=== PATIENT | male | born 1965 | race Caucasian/White ===

== ENCOUNTER 2016-08-04 10:19 | Emergency (ER) | payer OTHER, MEDICARE ==
--- NOTE | ~2016-08-04 | US85 ---
[facility] A Service of [facility] RADIOLOGY TEXT RESULTS PATIENT: LUDWIG RANDALL JR LOCATION: [place] : 67 UNIT #: [id number] AGE: [address]: Uyen Woods MD SEX: M ORDER DR: [id number] [facility] [address] [place], [place] [address] [id number] E MR#: [id number] Acc #: [id number] NAME: LUDWIG RANDALL JR : 1965 SEX: M STUDY DATE/TIME: 08/04/2016 13:28 UNIT: [place] ROOM: STUDY DESCRIPTION: [facility] [employer] Stdy Attending Physician: Uyen Woods M.D. Ordering Physician: Uyen Woods M.D. Primary Care Physician: Kevin Prince Aprn MEDICAL IMAGING REPORT This report is preliminary unless electronic signature is present EXAM Left leg vein Doppler. DATE OF EXAM 08/04/2016 INDICATION Chest pain that started this morning. On physical exam, the patient had swelling in the leg of unknown duration. TECHNIQUE Venous ultrasound examination of the left lower extremity was performed using grayscale, spectral Doppler and color flow Doppler imaging. FINDINGS The examination is negative. There is no evidence of left lower extremity deep venous thrombus from the groin to the lower calf. Visualized greater saphenous vein is also patent. IMPRESSION Negative examination. No evidence of left lower extremity DVT. Dictated by... Sanjiv Samuel Jr., M.D. THIS IS AN ELECTRONICALLY VERIFIED REPORT Sanjiv Samuel Jr., M.D. at 08/04/2016 4:54 PM CHRISS/néstor [facility] A Service of [facility] RADIOLOGY TEXT RESULTS PATIENT: LUDWIG RANDALL JR Radha LOCATION: [place] : 67 UNIT #: [id number] AGE: [address]: Uyen Woods MD SEX: M ORDER DR: TD: 08/04/2016 15:30 JOB #: [id number] MEDICAL IMAGING REPORT COPY
--- NOTE | ~2016-08-04 | EKG ---
PATIENT: LUDWIG RANDALL UNIT #: [id number] Ventricular Rate: 68 BPM Atrial Rate: 68 BPM P-R Interval: 166 ms QRS Duration: 148 ms Q-T Interval: 410 ms QTC Calculation(Bezet): 435 ms P [place]: 61 degrees Calculated R [place]: 132 degrees Calculated T [place]: 17 degrees Diagnosis Line: Normal sinus rhythm Diagnosis Line: Right bundle branch block with repolarization Diagnosis Line: abnormality Diagnosis Line: Left posterior fascicular block Diagnosis Line: Bifascicular block Diagnosis Line: Abnormal ECG Diagnosis Line: When compared with ECG of 12-JUN-2016 07:54, Diagnosis Line: No significant change was found Diagnosis Line: Confirmed by AYAN SULTANA MD ([id number]) on 08/05/2016 Diagnosis Line: 6:17:17 PM INTERPRETING MD: KAYY CHAKRABORTY
--- NOTE | ~2016-08-04 | CT16 ---
[facility] A Service of [facility] RADIOLOGY TEXT RESULTS PATIENT: LUDWIG RANDALL JR LOCATION: [facility] : 67 UNIT #: [id number] AGE: [address]: Uyen Woods MD SEX: M ORDER DR: [id number] [facility] [address] [place], [place] [address] [id number] E MR#: [id number] Acc #: [id number] NAME: LUDWIG RANDALL : 1965 SEX: M STUDY DATE/TIME: 08/04/2016 13:01 UNIT: [facility] ROOM: STUDY DESCRIPTION: CT Angio Chest for PE Attending Physician: Uyen Woods M.D. Ordering Physician: Uyen oWods M.D. Primary Care Physician: Kevin Prince Aprn MEDICAL IMAGING REPORT This report is preliminary unless electronic signature is present EXAM Chest CTA, 08/04 INDICATION Shortness of air and chest pain since 6 o'clock this morning. Pain rate 6/10. Patient diagnosed with pneumonia 1 month ago. TECHNIQUE Axial images were obtained through the chest following IV contrast administration. 3-D reformats were obtained. This CT exam was performed with one or more of the following radiation dose reduction techniques: automatic exposure control, adjustment of mA and/or kV according to patient size, and iterative reconstruction. COMPARISON 06/12/2016 FINDINGS There is no pulmonary embolism or aortic dissection. Findings are highly suspicious for a right hilar mass measuring about 3.9 x 3.8 cm. This is causing partial right middle lobe atelectasis. Consider bronchoscopy for further evaluation. This is worrisome for malignancy. No other adenopathy is seen in the chest or upper abdomen. There is some mild atelectasis in the right lower lobe today. The lungs are otherwise clear. Upper abdomen shows changes of gastric band placement and cholecystectomy. IMPRESSION 1. No pulmonary embolism or aortic dissection. 2. Findings are highly suspicious for a right hilar mass causing partial atelectasis of the right middle lobe. Consider bronchoscopy for further evaluation. This is suspicious for malignancy. [facility] A Service of [facility] RADIOLOGY TEXT RESULTS PATIENT: LUDWIG RANDALL JR LOCATION: [facility] : 67 UNIT #: [id number] AGE: [address]: Uyen Woods MD SEX: M ORDER DR: 3. There is some mild atelectasis in the right lower lobe today. Dictated by... Sanjiv Samuel Jr., M.D. THIS IS AN ELECTRONICALLY VERIFIED REPORT Sanjiv Samuel Jr., M.D. at 08/05/2016 8:09 AM CHRISS/juan TD: 08/04/2016 15:20 JOB #: [id number] MEDICAL IMAGING REPORT COPY
--- NOTE | ~2016-08-04 | CR72 ---
[facility] A Service of [facility] RADIOLOGY TEXT RESULTS PATIENT: LUDWIG RANDALL JR LOCATION: [facility] : 67 UNIT #: [id number] AGE: [address]: Uyen Woods MD SEX: M ORDER DR: [id number] [facility] [address] [place], [place] [address] [id number] E MR#: [id number] Acc #: [id number] NAME: LUDWIG RANDALL JR : 1965 SEX: M STUDY DATE/TIME: 08/04/2016 10:26 UNIT: [facility] ROOM: STUDY DESCRIPTION: CR Chest Single View Portable Attending Physician: Uyen Woods M.D. Ordering Physician: Uyen Woods M.D. Primary Care Physician: Kevin Prince Aprn MEDICAL IMAGING REPORT This report is preliminary unless electronic signature is present EXAM Portable chest 08/04 INDICATIONS Midsternal chest pain for the last 4 weeks. Patient had pneumonia 1 month ago with a collapsed right lung. FINDINGS AP portable chest is compared with 06/12/2016. Cardiomegaly is stable. Lungs are clear. No pneumothorax. IMPRESSION Stable cardiomegaly. No active disease. Dictated by... Sanjiv Samuel Jr., M.D. THIS IS AN ELECTRONICALLY VERIFIED REPORT Sanjiv Samuel Jr., M.D. at 08/04/2016 2:58 PM CHRISS/flakito TD: 08/04/2016 13:07 JOB #: [id number] MEDICAL IMAGING REPORT COPY
[2016-08-04 10:00] LABS: POC - CKMB 3.4 ng/mL (0.0-7.9); POC - TROPONIN <0.05 ng/mL (<=0.05)
[~2016-08-04 10:19] MED LIST: ALBUTEROL MININEB NEB; ALBUTEROL17 GM INH; AMBIEN PO; AUGMENTIN PO; AVONEX; BACTRIM DS TABL1 TAB; BENZONATATE PO; CELEBREX50 MG; CYMBALTA; DOXYCYCLINE PO; GILENYA0.5 MG PO; KLONOPIN; LEVAQUIN; LORTAB 5/500 TA1 TA1 PO; LORTAB 7.5-5001 TAB; LORTAB 7.5-5001 TAB PO; LYRICA75 MG PO; MEDROL PO; MS MED; NUVIGIL150 MG; PHENERGAN25 MG; PREDNISONE PO; SYMBICORT INH; TOPAMAX; VICODIN 5/1 TAB 5/50 PO; VICODIN 5/500 T1 TAB; WELLBUTRIN; ZITHROMAX PO; ZOMIG ZMT5 MG/TAB PO; [UNRECOGNIZED DRUG - OTHER]; [UNRECOGNIZED DRUG - OTHER] INJ
[2016-08-04 10:33] LABS: BASOPHIL% 0.6 % (0-2.5); EOSINOPHIL# 0.3 X10e3 (0-0.7); EOSINOPHIL% 4.3 % (0.0-7.0); HEMATOCRIT 44.6 % (38.0-50.0); HEMOGLOBIN 15.2 gm/dL (13.0-16.0); LYMPHOCYTE# 0.3 X10e3 (1.0-3.5); LYMPHOCYTE% 4.5 % (17.0-45.0); MEAN CELL VOLUME 88.9 FL (83-96); MEAN CORPUSCULAR HEMOGLOBIN 30.3 PG (28-34); MEAN PLATELET VOLUME 9.2 FL (6.5-11.5); MONOCYTE# 0.7 X10e3 (0-1.0); MONOCYTE% 11.8 % (3.0-12.0); NEUTROPHIL# 4.6 X10e3 (1.5-7.1); NEUTROPHIL% 78.8 % (40-75); PLATELET COUNT 231 X10e3 (140-420); RED BLOOD COUNT 5.01 X10e (3.90-5.60); RED CELL DISTRIBUTION WIDTH 14.2 % (11.0-15.5); WHITE BLOOD COUNT 5.9 X10e3 (4.0-10.5)
[2016-08-04 10:37] LABS: DIFF IND NO
[2016-08-04 10:48] LABS: PARTIAL THROMBOPLASTIN TIME 27.9 SECONDS (23.5-31.3)
[2016-08-04 10:55] LABS: INFLUENZA A NEG (NEG)
[2016-08-04 10:56] LABS: INFLUENZA B NEG (NEG)
[2016-08-04 11:06] LABS: ALKALINE PHOSPHATASE 85 U/L (32-92); ALT (SGPT) 20 U/L (10-40); AST (SGOT) 19 U/L (10-42); BILIRUBIN, DIRECT 0.1 mg/dL (0.0-0.2); BILIRUBIN,INDIRECT 0.7 mg/dL (0.0-0.9); BILIRUBIN,TOTAL 0.8 mg/dL (0.2-2.0); BLOOD UREA NITROGEN 17 mg/dL (9-23); CALCIUM SERUM 8.8 mg/dL (8.4-10.2); CARBON DIOXIDE 27 mmol/L (22-31); CHLORIDE 101 mmol/L (100-111); GLOM FILT RATE Estimated ABOVE60 mL/min (>60); GLUCOSE FASTING 105 mg/dL (70-110); POTASSIUM 3.9 mmol/L (3.5-5.1); PROTEIN TOTAL SERUM 7.3 g/dL (6.0-8.3); SODIUM 137 mmol/L (135-145)
[2016-08-04 11:27] LABS: POC - CKMB 3.2 ng/mL (0.0-7.9); POC - TROPONIN <0.05 ng/mL (<=0.05)
[2016-08-12] MEDS ORDERED: GILENYA0.5 MG PO (07:47)
[2016-08-12] MEDS ORDERED: PERCOCET 10/3251 TAB PO (07:48)
[2016-08-12] MEDS ORDERED: IBUPROFEN800 MG PO (07:48)
[2016-08-12] MEDS ORDERED: FLEXERIL10 MG PO (07:56)
[2016-08-12] MEDS ORDERED: LEVAQUIN750 MG PO (07:57)
[2016-08-12] MEDS ORDERED: ALBUTEROL20 ml (07:57)
[2016-08-12] MEDS ORDERED: MEDROL4 MG/DOSE- PO (08:21)
[2016-10-13] MEDS ORDERED: ARTHRITIS PAIN650 M3 PO (14:33)
[2016-10-25] MEDS ORDERED: GI COCKTAIL PO (10:35)
[2016-10-25] MEDS ORDERED: ALEVE220 M1 PO (10:39)
[2016-10-28] MEDS ORDERED: VITAMIN B 12 (08:09)
== END 2016-08-04 14:55 | disposition home or self-care (01) ==
LOC: CED 10:19
PROVIDERS: Emergency Medicine
DX: R91.8 Other nonspecific abnormal finding of lung field (principal); E11.9 Type 2 diabetes mellitus without complications; G40.909 Epilepsy, unspecified, not intractable, without status epilepticus; Z90.49 Acquired absence of other specified parts of digestive tract
CPT/HCPCS: 36415; 71010; 71275; 80048; 80076; 82553; 83880; 84484; 85025; 85610; 85730; 87804; 93005; 93971; 96374; 99284; J2930; Q9967

== ENCOUNTER → 2016-08-12 | Day surgery (SDC) | payer OTHER, MEDICARE ==
[~2016-08-12] MED LIST changes: +ALBUTEROL20 ml; +ALEVE220 M1 PO; +ARTHRITIS PAIN650 M3 PO; +DAZIDOX10 MG PO; +DILAUDID8 MG PO; +DOCUSATE SODIU100 MG PO; +DOK100 MG PO; +FERROUS GLUCON324 M2 PO; +FLEXERIL10 MG PO; +GI COCKTAIL; +GI COCKTAIL PO; +IBUPROFEN800 MG PO; +K-DUR20 ME1 PO; +LEVAQUIN750 MG PO; +LOPRESSOR PO; +MAG-OX 400400 M1 PO; +MEDROL4 MG/DOSE- PO; +MIRALAX17 GM DOB; +PERCOCET 10/3251 TAB PO; +PERCOCET10 PO; +PROTONIX PO; +VITAMIN B 12
--- NOTE | ~2016-08-12 | OR ---
Unit #: [id number] #: [id number] Patient: LUDWIG RANDALL JR [id number] [address] [place], [place] [address] [id number] O MR#: [id number] NAME: LUDWIG RANDALL JR ROOM: Date of Procedure: 08/12/2016 Admission Date: 08/12/2016 Surgeon: Roel Maldonado M.D. : 1965 Attending Physician: Roel Maldonado M.D. Primary Care Physician: Kevin Prince Aprn OPERATIVE REPORT PREOPERATIVE DIAGNOSIS Right hilar mass with atelectasis of the right middle lobe. POSTOPERATIVE DIAGNOSIS Right hilar mass with atelectasis of the right middle lobe with gross tumor found to be obstructing the right middle lobe bronchus. PROCEDURE PERFORMED Flexible fiberoptic bronchoscopy with biopsies taken of the right middle lobe tumor and with washings collected. ANESTHESIA Local plus IV sedation. ESTIMATED BLOOD LOSS Minimal. COMPLICATIONS None. DESCRIPTION OF PROCEDURE The patient was taken to the endoscopy suite and placed on the stretcher in a supine position. After appropriate monitoring lines had been placed, IV sedation was obtained using intravenous Versed and fentanyl. Anesthesia of the posterior pharynx was obtained using Hurricaine spray. After adequate anesthesia had been obtained in this fashion, a flexible bronchoscope was passed orally per a bite block into the posterior pharynx. The vocal cords were visualized and found to be without lesions and both moved well with phonation. Anesthesia of the cords was obtained by injecting 2% Xylocaine per the scope. The scope was then passed through the cords into the trachea. 1% Xylocaine was instilled per the bronchoscope to anesthetize the tracheobronchial tree. The entire length of trachea was visualized and found to be within normal limits. The john was sharp. The left mainstem bronchus was normal. The left upper lobe and left lower lobe were both examined to their subsegmental bronchi level and found to be within normal limits. The right upper lobe was examined to its subsegmental bronchi level and found to be within normal limits. There was found to be gross tumor involving the takeoff of the right middle lobe with almost complete occlusion of this bronchus. There was also found to be edema and narrowing of the segmental bronchi of the right lower lobe. Attention was turned back to the takeoff of the right middle lobe. Multiple biopsies were taken of the obstructing tumor of the Unit #: [id number] #: [id number] Patient: LUDWIG RANDALL JR right mainstem bronchus. Bronchial washings were also collected and sent for cytology as well as cultures. After adequate hemostasis had been ensured, the bronchoscope was removed. The patient tolerated the procedure well and left the endoscopy suite in satisfactory condition. Dictated by... Cici Clark/prisca TD: 08/13/2016 04:49 JOB #: [id number] OPERATIVE REPORT X Roel Maldonado MD X PROCEDURE OPERATIVE NOTE
[2016-08-12 08:05] LABS: ARTERIAL BLD GAS O2 SATURATION 96.1 % (90.0-100.0); ARTERIAL BLOOD GAS CARBOXY HB 1.5 %sat (0.0-9.0); ARTERIAL BLOOD GAS MET HB 0.4 %sat (0.0-2.0); ARTERIAL BLOOD GAS PCO2 42.6 mmHg (35.0-45.0); ARTERIAL BLOOD GAS PO2 93.7 mmHg (80.0-100)
[2016-08-12 08:06] LABS: ARTERIAL BLOOD GAS ALLEN TEST NORMAL; ARTERIAL BLOOD GAS ART SITE LEFT RADIAL; ARTERIAL DRAW? YES
== END | disposition home or self-care (01) ==
LOC: COPS 07:29
PROVIDERS: Surgery
DX: C34.2 Malignant neoplasm of middle lobe, bronchus or lung (principal); J98.11 Atelectasis; R91.8 Other nonspecific abnormal finding of lung field; J45.909 Unspecified asthma, uncomplicated; Z88.1 Allergy status to other antibiotic agents; F17.210 Nicotine dependence, cigarettes, uncomplicated; Z90.49 Acquired absence of other specified parts of digestive tract; Z90.89 Acquired absence of other organs; Z98.84 Bariatric surgery status; Z98.890 Other specified postprocedural states
CPT/HCPCS: 36600; 82803; 87070; 87102; 87106; 87116; 87205; 87206; 88108; 88305; 88342; J0171; J2250; J3010

== ENCOUNTER 2016-08-18 18:41 | Emergency (ER) | payer OTHER, MEDICARE ==
--- NOTE | ~2016-08-18 | EKG ---
PATIENT: LUDWIG RANDALL UNIT #: [id number] Ventricular Rate: 89 BPM Atrial Rate: 89 BPM P-R Interval: 156 ms QRS Duration: 146 ms Q-T Interval: 384 ms QTC Calculation(Bezet): 467 ms P [place]: 58 degrees Calculated R [place]: 169 degrees Calculated T [place]: 31 degrees Diagnosis Line: Normal sinus rhythm Diagnosis Line: Right bundle branch block with repolarization Diagnosis Line: abnormality Baseline wander Diagnosis Line: Abnormal ECG Diagnosis Line: When compared with ECG of 04-AUG-2016 09:04, Diagnosis Line: No significant change was found Diagnosis Line: Confirmed by AYAN SULTANA MD ([id number]) on 08/19/2016 Diagnosis Line: 5:43:08 PM INTERPRETING MD: KAYY CHAKRABORTY
--- NOTE | ~2016-08-18 | CR72 ---
[facility] A Service of [facility] & [facility] RADIOLOGY TEXT RESULTS PATIENT: LUDWIG RANDALL JR LOCATION: [facility] : 67 UNIT #: [id number] AGE: [address]: Dariusz Smith MD SEX: M ORDER DR: [id number] [facility] [address] [place], [place] [address] [id number] E MR#: [id number] Acc #: [id number] NAME: LUDWIG RANDALL JR : 1965 SEX: M STUDY DATE/TIME: 08/18/2016 18:50 UNIT: [facility] ROOM: STUDY DESCRIPTION: CR Chest Single View Portable Attending Physician: Dariusz Smith M.D. Referring Physician: Kevin Prince Aprn Ordering Physician: Ed Doctor [id number] [facility] Primary Care Physician: Kevin Prince Aprn MEDICAL IMAGING REPORT This report is preliminary unless electronic signature is present EXAM Portable chest HISTORY Shortness of air, onset today. History of lung cancer. FINDINGS AP portable view of the chest demonstrates no focal infiltrates or effusions. Probable small amount of right basilar atelectasis. Mild cardiomegaly. Mediastinum, great vessels and bony thorax unremarkable. Overall no acute findings. Dictated by... Violeta Mckeon M.D. THIS IS AN ELECTRONICALLY VERIFIED REPORT Violeta Mckeon M.D. at 08/19/2016 8:42 PM Alanna TD: 08/19/2016 09:34 JOB #: [id number] MEDICAL IMAGING REPORT COPY
[2016-08-18 18:01] LABS: BASOPHIL# 0.1 X10e3 (0-0.3); BASOPHIL% 1.1 % (0-2.5); EOSINOPHIL# 0.4 X10e3 (0-0.7); EOSINOPHIL% 4.1 % (0.0-7.0); HEMATOCRIT 46.7 % (38.0-50.0); HEMOGLOBIN 15.9 gm/dL (13.0-16.0); LYMPHOCYTE# 0.3 X10e3 (1.0-3.5); LYMPHOCYTE% 3.2 % (17.0-45.0); MEAN CELL VOLUME 88.3 FL (83-96); MEAN PLATELET VOLUME 8.8 FL (6.5-11.5); MONOCYTE# 0.9 X10e3 (0-1.0); MONOCYTE% 10.3 % (3.0-12.0); NEUTROPHIL# 7.3 X10e3 (1.5-7.1); NEUTROPHIL% 81.3 % (40-75); PLATELET COUNT 229 X10e3 (140-420); RED BLOOD COUNT 5.29 X10e (3.90-5.60); RED CELL DISTRIBUTION WIDTH 14.2 % (11.0-15.5)
[2016-08-18 18:02] LABS: DIFF IND NO
[2016-08-18 18:13] LABS: ALKALINE PHOSPHATASE 121 U/L (32-92); ALT (SGPT) 29 U/L (10-40); AST (SGOT) 25 U/L (10-42); BILIRUBIN, DIRECT 0.1 mg/dL (0.0-0.2); BILIRUBIN,INDIRECT 0.2 mg/dL (0.0-0.9); BILIRUBIN,TOTAL 0.3 mg/dL (0.2-2.0); BLOOD UREA NITROGEN 13 mg/dL (9-23); BUN/CREATININE RATIO 14.44; CARBON DIOXIDE 27 mmol/L (22-31); CHLORIDE 99 mmol/L (100-111); CREATININE SERUM 0.9 mg/dL (0.6-1.4); GLOM FILT RATE Estimated ABOVE60 mL/min (>60); GLUCOSE FASTING 112 mg/dL (70-110); POTASSIUM 3.9 mmol/L (3.5-5.1); PROTEIN TOTAL SERUM 7.2 g/dL (6.0-8.3); SODIUM 136 mmol/L (135-145)
[~2016-08-18 18:41] MED LIST changes: -ALEVE220 M1 PO; -ARTHRITIS PAIN650 M3 PO; -DAZIDOX10 MG PO; -DILAUDID8 MG PO; -DOCUSATE SODIU100 MG PO; -DOK100 MG PO; -FERROUS GLUCON324 M2 PO; -GI COCKTAIL; -GI COCKTAIL PO; -K-DUR20 ME1 PO; -LOPRESSOR PO; -MAG-OX 400400 M1 PO; -MIRALAX17 GM DOB; -PERCOCET10 PO; -PROTONIX PO; -VITAMIN B 12
[2016-08-18 18:45] LABS: POC - CKMB 1.8 ng/mL (0.0-7.9); POC - TROPONIN <0.05 ng/mL (<=0.05)
[2016-08-18 19:46] LABS: POC - CKMB 1.7 ng/mL (0.0-7.9); POC - TROPONIN <0.05 ng/mL (<=0.05)
[2016-10-13] MEDS ORDERED: ARTHRITIS PAIN650 M3 PO (14:33)
[2016-10-25] MEDS ORDERED: GI COCKTAIL PO (10:35)
[2016-10-25] MEDS ORDERED: ALEVE220 M1 PO (10:39)
[2016-10-28] MEDS ORDERED: VITAMIN B 12 (08:09)
== END 2016-08-18 20:00 | disposition home or self-care (01) ==
LOC: CED 18:41
PROVIDERS: Emergency Medicine
DX: R06.02 Shortness of breath (principal); Z87.891 Personal history of nicotine dependence; Z88.1 Allergy status to other antibiotic agents
CPT/HCPCS: 36415; 71010; 80048; 80076; 82553; 84484; 85025; 93005; 94640; 99283

== ENCOUNTER → 2016-08-19 | Outpatient (CLI) | payer OTHER, MEDICARE ==
[~2016-08-19] MED LIST changes: +ALEVE220 M1 PO; +ARTHRITIS PAIN650 M3 PO; +DAZIDOX10 MG PO; +DILAUDID8 MG PO; +DOCUSATE SODIU100 MG PO; +DOK100 MG PO; +FERROUS GLUCON324 M2 PO; +GI COCKTAIL; +GI COCKTAIL PO; +K-DUR20 ME1 PO; +LOPRESSOR PO; +MAG-OX 400400 M1 PO; +MIRALAX17 GM DOB; +PERCOCET10 PO; +PROTONIX PO; +VITAMIN B 12
== END | disposition home or self-care (01) ==
LOC: CRC 13:09
DX: R91.8 Other nonspecific abnormal finding of lung field (principal)
CPT/HCPCS: 94060; 94726; 94729

== ENCOUNTER → 2016-08-23 | Outpatient (CLI) | payer OTHER, MEDICARE ==
--- NOTE | ~2016-08-23 | CR63 ---
[facility] A Service of [facility] & [facility] RADIOLOGY TEXT RESULTS PATIENT: LUDWIG RANDALL JR LOCATION: [facility] : 67 UNIT #: [id number] AGE: [address]: Roel Maldonado MD SEX: M ORDER DR: [id number] [facility] [address] [place], [place] [address] [id number] O MR#: [id number] Acc #: [id number] NAME: LUDWIG RANDALL JR : 1965 SEX: M STUDY DATE/TIME: 08/23/2016 12:31 UNIT: [facility] ROOM: STUDY DESCRIPTION: CR Chest 2 View Attending Physician: Roel Maldonado M.D. Ordering Physician: Roel Maldonado M.D. MEDICAL IMAGING REPORT This report is preliminary unless electronic signature is present EXAM Chest PA and lateral HISTORY SUPPLIED Shortness of breath with activity. History of lung cancer. Symptoms beginning 2 weeks ago. TECHNIQUE/COMPARISON PA and lateral views of the chest are obtained and compared directly to the patient's prior film of 08/18/2016. FINDINGS The heart size is stable pulmonary vascular markings in the chest are normal. There is decreased volumes in the right hemithorax presumably related to surgery. No acute process is seen. CONCLUSION Decreased volumes in the right hemithorax. Otherwise negative chest. Dictated by... Flash Crawford M.D. THIS IS AN ELECTRONICALLY VERIFIED REPORT Flash Crawford M.D. at 08/25/2016 3:10 PM VETO/south TD: 08/23/2016 18:52 JOB #: [id number] MEDICAL IMAGING REPORT Page 1 of 1 COPY
== END | disposition home or self-care (01) ==
LOC: CRAD 11:55
DX: C34.90 Malignant neoplasm of unspecified part of unspecified bronchus or lung (principal)
CPT/HCPCS: 71020

== ENCOUNTER 2016-08-24 03:08 | Emergency (ER) | payer OTHER, MEDICARE ==
--- NOTE | ~2016-08-24 | CR151 ---
[facility] A Service of [facility] & [facility] RADIOLOGY TEXT RESULTS PATIENT: LUDWIG RANDALL JR LOCATION: [facility] : 66 UNIT #: [id number] AGE: [address]: Nathalia Escalante APRN SEX: M ORDER DR: [id number] [facility] [address] [place], [place] [address] [id number] E MR#: [id number] Acc #: [id number] NAME: LUDWIG RANDALL JR : 1965 SEX: M STUDY DATE/TIME: 08/24/2016 3:47 UNIT: [facility] ROOM: STUDY DESCRIPTION: CR Hip Min 2 Views Rt Attending Physician: Nathalia Escalante A.P.R.N. Ordering Physician: Nathalia Escalante A.P.R.N. Primary Care Physician: No Primary Care Physician MEDICAL IMAGING REPORT This report is preliminary unless electronic signature is present EXAM Right hip, 08/24/2016. HISTORY 51-year-old male in the ED complaining of 1-month history of worsening right hip pain. No reported acute injury. TECHNIQUE 2-view right hip series. FINDINGS The examination is negative. No fracture, arthropathy or other osseous abnormality is demonstrated. IMPRESSION Negative right hip series. Dictated by... Lio Anaya M.D. THIS IS AN ELECTRONICALLY VERIFIED REPORT Lio Anaya M.D. at 08/24/2016 9:43 PM INESW/reuben TD: 08/24/2016 12:58 JOB #: [id number] MEDICAL IMAGING REPORT Page 1 of 1 COPY
[~2016-08-24 03:08] MED LIST changes: -ALEVE220 M1 PO; -ARTHRITIS PAIN650 M3 PO; -DAZIDOX10 MG PO; -DILAUDID8 MG PO; -DOCUSATE SODIU100 MG PO; -DOK100 MG PO; -FERROUS GLUCON324 M2 PO; -GI COCKTAIL; -GI COCKTAIL PO; -K-DUR20 ME1 PO; -LOPRESSOR PO; -MAG-OX 400400 M1 PO; -MIRALAX17 GM DOB; -PERCOCET10 PO; -PROTONIX PO; -VITAMIN B 12
[2016-08-24 04:48] LABS: BASOPHIL% 0.2 % (0-2.5); DIFF IND NO; EOSINOPHIL% 0.5 % (0.0-7.0); HEMATOCRIT 42.2 % (38.0-50.0); HEMOGLOBIN 14.1 gm/dL (13.0-16.0); LYMPHOCYTE# 0.3 X10e3 (1.0-3.5); LYMPHOCYTE% 3.2 % (17.0-45.0); MEAN CELL VOLUME 88.4 FL (83-96); MEAN CORPUSCULAR HEMOGLOBIN 29.6 PG (28-34); MEAN CORPUSCULAR HGB CONC 33.5 g/dL (30-36); MEAN PLATELET VOLUME 9.1 FL (6.5-11.5); MONOCYTE# 1.2 X10e3 (0-1.0); MONOCYTE% 12.8 % (3.0-12.0); NEUTROPHIL# 7.8 X10e3 (1.5-7.1); NEUTROPHIL% 83.3 % (40-75); PLATELET COUNT 226 X10e3 (140-420); RED BLOOD COUNT 4.77 X10e (3.90-5.60); RED CELL DISTRIBUTION WIDTH 14.4 % (11.0-15.5); WHITE BLOOD COUNT 9.4 X10e3 (4.0-10.5)
[2016-08-24 05:03] LABS: PARTIAL THROMBOPLASTIN TIME 25.2 SECONDS (23.5-31.3); PROTHROMBIN TIME (PATIENT) 10.1 SECONDS (9.6-11.5)
[2016-08-24 05:14] LABS: BLOOD UREA NITROGEN 24 mg/dL (9-23); CALCIUM SERUM 8.7 mg/dL (8.4-10.2); CARBON DIOXIDE 28 mmol/L (22-31); CHLORIDE 105 mmol/L (100-111); GLOM FILT RATE Estimated ABOVE60 mL/min (>60); GLUCOSE FASTING 117 mg/dL (70-110); POTASSIUM 3.6 mmol/L (3.5-5.1); SODIUM 139 mmol/L (135-145)
[2016-10-13] MEDS ORDERED: ARTHRITIS PAIN650 M3 PO (14:33)
[2016-10-25] MEDS ORDERED: GI COCKTAIL PO (10:35)
[2016-10-25] MEDS ORDERED: ALEVE220 M1 PO (10:39)
[2016-10-28] MEDS ORDERED: VITAMIN B 12 (08:09)
== END 2016-08-24 07:50 | disposition home or self-care (01) ==
LOC: CED 03:08
PROVIDERS: Nurse Practitioner
DX: M25.551 Pain in right hip (principal); K21.9 Gastro-esophageal reflux disease without esophagitis; Z90.49 Acquired absence of other specified parts of digestive tract; Z88.1 Allergy status to other antibiotic agents; Z79.899 Other long term (current) drug therapy
CPT/HCPCS: 36415; 73502; 80048; 85025; 85610; 85730; 96361; 96374; 96375; 99284; J1170; J2270; J2405

== ENCOUNTER → 2016-08-30 | Outpatient (CLI) | payer OTHER, MEDICARE ==
[~2016-08-30] MED LIST changes: +ALEVE220 M1 PO; +ARTHRITIS PAIN650 M3 PO; +DAZIDOX10 MG PO; +DILAUDID8 MG PO; +DOCUSATE SODIU100 MG PO; +DOK100 MG PO; +FERROUS GLUCON324 M2 PO; +GI COCKTAIL; +GI COCKTAIL PO; +K-DUR20 ME1 PO; +LOPRESSOR PO; +MAG-OX 400400 M1 PO; +MIRALAX17 GM DOB; +PERCOCET10 PO; +PROTONIX PO; +VITAMIN B 12
--- NOTE | ~2016-08-30 | ST ---
Unit #: [id number] #: [id number] Patient: LUDWIG RANDALL JR [id number] [facility]. [address] [address] [id number] O MR#: [id number] NAME: LUDWIG RANDALL JR : 1965 SEX: M STUDY DATE/TIME: 08/30/2016 UNIT: CN ROOM: STUDY DESCRIPTION: Attending Physician: Roel Maldonado M.D. Referring Physician: Roel Maldonado M.D. Primary Care Physician: Kevin Prince Aprn CARDIOLOGY REPORT EXAM ECG portion of nuclear stress test. INDICATIONS Preop cardiac risk stratification for lung cancer surgery. SUMMARY The patient underwent nuclear stress test. The patient's resting heart rate was 71 beats per minute which increased to 88 beats per minute with Lexiscan infusion. This represents 51% of the maximum age-predicted heart rate. The patient's resting blood pressure is 141/75 mmHg which remained unchanged during Lexiscan infusion. The patient's resting ECG showed normal sinus rhythm and right bundle branch block. During Lexiscan infusion, this remains unchanged. There is no ventricular or supraventricular ectopy noted. There are no pauses noted. CONCLUSION 1. Negative ECG portion of the Lexiscan study for ischemia. 2. Perfusion imaging to be dictated separately. Dictated by... Cici Bull/sharlene TD: 08/30/2016 16:14 JOB #: [id number] CARDIOLOGY REPORT Page 1 of 1 X YURIDIA MILLER MD CARDIOLOGY REPORT
--- NOTE | ~2016-08-30 | TH ---
Unit #: [id number] #: [id number] Patient: LUDWIG RANDALL JR [id number] [address] [address] [id number] O MR#: [id number] NAME: LUDWIG RANDALL JR : 1965 SEX: M STUDY DATE/TIME: 08/30/2016 UNIT: [facility] ROOM: STUDY DESCRIPTION: Nuclear stress test. Attending Physician: Roel Maldonado M.D. Referring Physician: Roel Maldonado M.D. Primary Care Physician: Kevin Prince Aprn CARDIOLOGY REPORT EXAM Nuclear stress test. INDICATIONS Preop cardiac risk stratification. SUMMARY Patient underwent nuclear stress test and received a resting dose of 11.53 mCi and a stress dose 33.9 mCi. On gated imaging, patient appears to have normal wall motion with a preserved ejection fraction. Patient's LV EF is 65%. On perfusion imaging, comparing rest and stress images, there appears to be decreased tracer uptake seen on rest images, which gets slightly better on stress images with normal wall motion on gated imaging likely representing inferior attenuation artifact. CONCLUSIONS 1. No obvious ischemia. 2. Preserved ejection fraction. 3. Inferior attenuation artifact present. 4. ECG portion to be dictated separately. Dictated by... Cici Bull/reuben TD: 08/31/2016 08:29 JOB #: [id number] CARDIOLOGY REPORT Page 1 of 1 X YURIDIA MILLER MD CARDIOLOGY REPORT
== END | disposition home or self-care (01) ==
LOC: CNUC 07:10
DX: Z01.810 Encounter for preprocedural cardiovascular examination (principal); C34.90 Malignant neoplasm of unspecified part of unspecified bronchus or lung
CPT/HCPCS: 78452; 93017; A9500; J2785

== ENCOUNTER 2016-09-20 19:14 | Inpatient (IN) | payer OTHER, MEDICARE ==
--- NOTE | ~2016-09-20 | CR72 ---
[facility] A Service of [facility] & [facility] RADIOLOGY TEXT RESULTS PATIENT: LUDWIG RANDALL JR LOCATION: [facility] - : 67 UNIT #: [id number] AGE: [address]: Swapna Zamudio MD SEX: M ORDER DR: [id number] [facility] [address] [place] [address] [place], [place] [address] [id number] I MR#: [id number] Acc #: [id number] NAME: LUDWIG RANDALL JR : 1965 SEX: M STUDY DATE/TIME: 09/27/2016 6:52 UNIT: [address] ROOM: [facility] STUDY DESCRIPTION: CR Chest Single View Portable Attending Physician: Swapna Zamudio M.D. Ordering Physician: Swapna Zamudio M.D. Primary Care Physician: Kevin Prince Aprn MEDICAL IMAGING REPORT This report is preliminary unless electronic signature is present EXAM Portable chest INDICATION Minus shortness of breath today lung cancer and oral and pleural effusion. COMPARISON 09/24/2016 FINDINGS There is decreased pleural fluid at the right base. Stable either collapsed lung or a loculated pleural fluid in the region of the lung apex on the right. Left lung clear. Heart size stable. Stable PICC line. IMPRESSION Slight decrease in pleural fluid in the right base. Otherwise, significant change. Dictated by... Akbar Mckeon M.D. THIS IS AN ELECTRONICALLY VERIFIED REPORT Akbar Mckeon M.D. at 09/27/2016 4:33 PM BARB/maria c TD: 09/27/2016 08:55 JOB #: [id number] MEDICAL IMAGING REPORT Page 1 of 1 COPY
--- NOTE | ~2016-09-20 | OR ---
Unit #: [id number] #: [id number] Patient: LUDWIG PENALOZA JR [id number] [facility] [address] [place], [place] [address] [id number] I MR#: [id number] NAME: LUDWIG PENALOZA ROOM: 307 Date of Procedure: Admission Date: 09/20/2016 Surgeon: Deep Murcia M.D. : 1965 Attending Physician: Swapna Zamudio M.D. 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 PROCEDURE PERFORMED Fiberoptic bronchoscopy with placement of HDR brachytherapy catheter. INDICATIONS Mr. Ludwig Penaloza is a pleasant gentleman, 51 years of age, who suffers from chronic obesity. He presented with pneumonia and shortness of breath and was found to have an obstructing mass involving the right mainstem bronchus. He was transferred to [facility] and underwent endobronchial therapy with Dr. Mishra and Dr. Figueroa. The patient still has significant endobronchial disease and was subsequently transferred to [facility]. The patient was seen in consultation and a decision was made to proceed with HDR brachytherapy in an effort to maintain patency of a stenotic distal bronchus intermedius. The patient is also scheduled to begin chemotherapy as early as today. PROCEDURE The patient was seen in endoscopy suite at [facility]. He was anesthetized and local lidocaine was utilized endobronchially. The patient also received 25 mcg of fentanyl intraoperatively. Findings demonstrated vocal cords moving in an equal, symmetric fashion with no evidence of impaired movement. The left lung was unremarkable. Any secretions were aspirated. Scope was entered into the right mainstem bronchus where white exudative material was noted in the mid bronchus intermedius. This was obstructing the right middle lobe orifice. The right upper lobe was completely patent in all sections. The scope could be passed by the obstruction. The patient had had Lovenox early this morning and no attempt was made at surgical debridement. Under fluoroscopic guidance, an HDR catheter was placed down into the right lower lobe and secured to patient's nares and forehead. He was transported via ACLS truck to [facility] where patient underwent placement of dummies within the catheter and CT simulation. The treatment area was delineated and designated at 5 cm with a treatment of 500 cGy to be delivered at 1 cm. This was actually performed with a [employer] HDR unit. This went on without complication. The Unit #: [id number] #: [id number] Patient: LUDWIG PENALOZA JR activity of the radium 192 source was approximately 7.5 Curies. Total treatment time was just over two minutes. Once complete, the HDR catheter was removed in the department without complications. The patient experienced very little cough, very little discomfort overall. Plans are for patient to receive chemotherapy today and likely undergo repeat HDR brachytherapy one week from today at 7 a.m. This is being coordinated with Dr. Maldonado. COMPLICATIONS None. ESTIMATED BLOOD LOSS None. CONDITION Stable. Dictated by... Cici Salvador/aaliyah TD: 09/22/2016 11:16 JOB #: [id number] CC: Cici Parra M.D. PROCEDURE OPERATIVE NOTE Page 1 of 1 X Deep Murcia MD X PROCEDURE OPERATIVE NOTE
--- NOTE | ~2016-09-20 | CR72 ---
[facility] A Service of [facility] & [facility] RADIOLOGY TEXT RESULTS PATIENT: LUDWIG RANDALL JR LOCATION: [facility] - : 67 UNIT #: [id number] AGE: [address]: Swapna Zamudio MD SEX: M ORDER DR: [id number] [facility] [address] [place], [place] [address] [id number] I MR#: [id number] Acc #: [id number] NAME: LUDWIG RANDALL JR : 1965 SEX: M STUDY DATE/TIME: 09/22/2016 4:39 UNIT: [address] ROOM: [facility] STUDY DESCRIPTION: CR Chest Single View Portable Attending Physician: Swapna Zamudio M.D. Ordering Physician: Swapna Zamudio M.D. Primary Care Physician: Kevin Prince Aprn MEDICAL IMAGING REPORT This report is preliminary unless electronic signature is present EXAM Portable chest INDICATION Shortness of air, follow up right hemithorax opacification. FINDINGS This portable view of the chest shows no change from yesterday's study. The left lung is clear. The right hemithorax is completely opacified. The heart size is normal. Dictated by... Christiano Reynolds M.D. THIS IS AN ELECTRONICALLY VERIFIED REPORT Christiano Reynolds M.D. at 09/22/2016 2:21 PM KING/jessee TD: 09/22/2016 06:59 JOB #: [id number] MEDICAL IMAGING REPORT Page 1 of 1 COPY
--- NOTE | ~2016-09-20 | CO ---
Unit #: [id number] #: [id number] Patient: LUDWIG PENALOZA JR [id number] [facility] [address] [facility]. [place], [place] [address] [id number] I MR#: [id number] NAME: LUDWIG PENALOZA ROOM: 307 Age: 51 Sex: M Admission Date: 09/20/2016 : 1965 Attending Physician: Gonzalo Figueroa M.D. Primary Care Physician: Kevin Prince Aprn CONSULTATION REPORT PODIATRY DOCTOR Dr. Zamudio REASON FOR CONSULT Squamous cell carcinoma. HISTORY OF PRESENT ILLNESS Mr. Ludwig Penaloza is a 51-year-old gentleman who presented to the emergency room at [facility] in June 2016 with a sharp right anterior chest wall pain that radiated to his right shoulder. He had experienced some increased cough and shortness of breath, and he had a CT of the chest with PE protocol which revealed airspace consolidation of the right middle lobe suspicious for pneumonia. He was placed on oral antibiotics at that time. He had a one pack per day smoking history for 36 years. He presented back to the emergency room at [facility] on August 04, 2016, with a continued sharp right anterior chest wall pain and increased shortness of air. A CT of the chest at that time with PE protocol revealed a 3.9 x 3.8 cm right hilar mass with narrowing of the right middle lobe and right lower lobe bronchi with associated atelectasis. However, there was no evidence of pulmonary embolism. He presented in our office on August 09, 2016, (1) on evaluation following that appointment he was having some respiratory distress with some wheezes. We had asked him to be evaluated by Dr. Billy Mishra, [facility], and then we would proceed with flexible bronchoscopy, ABGs, and PFTs. He also had been scheduled for a PET scan which he underwent. He returned to our office on August 23, 2016, following evaluation. On discussion of ABGs, PFTs, and PET scan, the plan was for us to get arterial blood gases, a Cardiolite stress test, and have him return for right thoracotomy with right middle and possible right lower lobectomy. Unfortunately, he presented at [facility] with postobstructive pneumonia. While at [facility], on September 16, 2016, he underwent a bronchoscopy that showed complete occlusion of the bronchus intermedius with an attempted balloon dilatation of that area performed by Dr. Adiel Figueroa. On September 15, he had undergone the same procedure under the direction of Dr. Adiel Figueroa, and then on September 14 he had undergone the primary procedure which revealed the complete occlusion of the bronchus intermedius. He was also consulted by Infectious Disease with Dr. Barlow and Dr. Sin. Patient was given antibiotic therapy but without resolution of Unit #: [id number] #: [id number] Patient: LUDWIG PENALOZA JR the postobstructive pneumonia. On September 20, 2016, he was transferred from [facility] to [facility] to undergo brachytherapy under the direction of Dr. Deep Murcia and to be under the care of Dr. Gonzalo Figueroa to start his chemotherapy. At present, his choice for treatment would be the brachytherapy and chemotherapy. His pulmonary status with the postobstructive pneumonia does not lend itself toward surgical resection. PAST MEDICAL HISTORY 1. Recent pneumonia. 2. Osteoarthritis. 3. Multiple sclerosis. He is usually followed by Dr. Mullins as an outpatient and on Gilenya as treatment for his multiple sclerosis. 4. Bipolar disorder. 5. Lap-Band insertion. 6. Tonsillectomy and adenoidectomy. 7. Cholecystectomy. 8. Left abdominal hernia surgery. 9. Left knee surgery. 10. Vasectomy. 11. Cyst removed from one of his testicles. SOCIAL HISTORY He lives with his who is partially deaf but uses hearing aids. He smokes one pack of cigarettes per day and has for 36 years. He has an occasional alcoholic beverage socially. FAMILY HISTORY Benign. No history of carcinoma. CURRENT MEDICATIONS 1. Oxycodone 5 mg 2 tabs every 4 hours. 2. Albuterol and ipratropium 3 mL mini-nebs every 4 hours. 3. Flexeril 10 mg 1 at 3 times daily. 4. Colace 100 mg twice daily. 5. Lovenox 0.4 mL subcutaneous twice daily. 6. Dilaudid 0.5 mg IV q.2 hours p.r.n. for pain. 7. Lidocaine topical patch apply 1 patch daily and remove after 12 hours. 8. Zofran p.r.n. for nausea. 9. MiraLax 17 grams daily. 10. Zosyn 3.375 mg IV every 8 hours. 11. Diflucan 200 mg IV daily. MEDICATION ALLERGIES CLINDAMYCIN. REVIEW OF SYSTEMS Positive for shortness of breath, blood-streaked sputum, wheezing, pain in the legs, weakness in the legs, tingling, headaches, back pain, and excessive urination. PHYSICAL EXAMINATION VITAL SIGNS: Blood pressure is 134/74, heart rate 92 and regular, temperature 98.9, and respiratory rate is 20. GENERAL: Mr. Ludwig Penaloza is a well-groomed 51-year-old male, morbidly obese, good historian regarding his own medical history. NEUROLOGIC/PSYCHIATRIC: Cranial nerves II-XII are intact. Speech is appropriate and clear. Unit #: [id number] #: [id number] Patient: LUDWIG PENALOZA JR NECK: Full, supple. No palpable cervical, supraclavicular, or occipital lymphadenopathy. CHEST: Auscultation of his lungs finds breath sounds to be decreased on the right side; however, breath sounds are noted today where they have not been noted previously. Good breath sounds on the left. CARDIOVASCULAR: S1 and S2, without rub and without murmur. No S3 or S4. Trace of peripheral edema. ABDOMEN: Large, round, and pendulous. Bowel sounds are positive. Appetite is good. EXTREMITIES: His bilateral lower extremities have hemosiderin deposits with a trace of peripheral edema. DIAGNOSTIC STUDIES LABORATORY: BUN 8, creatinine 0.9, sodium 138, and potassium 3.8. WBC 18.5, platelets 491,000, hemoglobin 10.3, and hematocrit 31.7. IMPRESSION Nonsmall cell lung cancer with postobstructive pneumonia with obstruction of the bronchus intermedius, status post multiple bronchoscopies with attempts to open this area, as well as antibiotic therapy per Infectious Disease. PLAN Placement of brachytherapy catheter tomorrow morning to compliment Dr. Deep Murcia' therapy, as well as chemotherapy per Dr. Gonzalo Figueroa. Dictated by... Ratna Parisi A.P.R.N. for Roel Maldonado M.D. TB/lesley TD: 09/21/2016 19:11 JOB #: [id number] CONSULTATION REPORT Page 1 of 1 X Ratna Parisi APRN CONSULTATION REPORT
--- NOTE | ~2016-09-20 | CO ---
Unit #: [id number] #: [id number] Patient: LUDWIG PENALOZA JR [id number] [facility] [address] [facility] [address]. [place], [place] [address] [id number] I MR#: [id number] NAME: LUDWIG PENALOZA JR ROOM: [facility] Age: 51 Sex: M Admission Date: 09/20/2016 : 1965 Attending Physician: Swapna Zamudio M.D. 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 CHIEF COMPLAINT Shortness of breath and pneumonia. HISTORY OF PRESENT ILLNESS Mr. Ludwig Penaloza is a pleasant 51-year-old gentleman who suffers from chronic obesity status post Lap-Band procedure some 6 years ago. The patient also suffers from multiple sclerosis. He has a history of persistent pneumonia beginning in June of 2016. He was treated with antibiotic therapy and improved; however, his pneumonia was recurrent, and ultimately he was identified as having a new right hilar mass in early August of 2016. This mass was causing obstruction of the right middle and right lower lobe segments. The patient underwent bronchoscopy, and biopsies demonstrated the presence of a squamous cell malignancy. The patient has actually undergone multiple attempts at endobronchial ablation 3 days in a row by Dr. Mishra at [facility]. The patient did have some purulent material, which was released. He has improved clinically on antibiotics. He has recently been admitted to [facility] in expectation of HDR brachytherapy, along with chemotherapy. The patient, at this time is still a candidate for potential resection. This is in effort to re-aerate the right lung and relieve obstruction. RECOMMENDATIONS Current plans are for initial HDR brachytherapy procedure in combination with Dr. Maldonado today at approximately 2 p.m. Plans will be to administer a total of 500 centigray at a depth of 1 cm over involved active length, which likely will be between 4 cm to 5 cm. The patient will remain hospitalized both before and after procedure. The patient will be seen by Dr. Gonzalo Figueroa and likely begin combination chemotherapy as early as tomorrow. The patient's multiple sclerosis medications are being held at this time in expectation of chemotherapy. HDR brachytherapy is likely done as a 3-procedure sequence on a weekly basis, and we will reevaluate this gentleman next week for potential second procedure. It is certainly my pleasure to participate in his care. He will be followed very closely following procedure. PAST MEDICAL HISTORY Past medical history is remarkable for obstructive pneumonia, drug-induced fever. He suffers from COPD. He has right pleural effusion. He suffers from chronic obesity, hyperglycemia and multiple sclerosis. Unit #: [id number] #: [id number] Patient: LUDWIG PENALOZA JR PAST SURGICAL PROCEDURES Surgery on the left knee, including removal of a bursa. The patient has undergone hernia repair on the left side. He has undergone cholecystectomy, tonsillectomy. He has had a colonoscopy with removal of polyps. MEDICATIONS Medications include Tylenol 650 mg 2 tablets q.6 hours. Dilaudid was given IV for pain control. He is on DuoNeb inhalations. He takes Gilenya 0.5 mg a day, Flexeril 10 mg t.i.d. He has a topical lidocaine patch. He is currently on Lovenox subcutaneous injections. He also takes oxycodone for pain, Zosyn IV. He is receiving Symbicort inhalations. He has Zofran for nausea. DRUG ALLERGIES Clindamycin. NUTRITIONAL STATUS Stable. PAIN Unremarkable at this time. SOCIAL HISTORY The patient has been a smoker; not smoking currently. He states his weight has been fairly stable as of late. He is high functioning despite multiple sclerosis. FAMILY HISTORY Noncontributory to the present illness with the exception of hypertension. REVIEW OF SYSTEMS The patient denies seizure activity. He denies hemoptysis or hematemesis. He has had shortness of breath. He has had chronic cough. He denies GI or complaints. PHYSICAL EVALUATION VITAL SIGNS: Temperature 99.1, pulse 90, respirations 18. Patient currently on 3 liters O2, O2 saturation 95%. Blood pressure 132/76, height 5'7", weight 339 pounds, BMI 52. HEAD AND NECK EXAM: Pupils are equal, round and reactive to light and accommodation. Extraocular movements are within normal limits. NECK: is quite broad with no palpable adenopathy. Supraclavicular fossa also unremarkable. LUNGS: Auscultated breath sounds are extremely distant in the entire right lung field with the exception of the base. There are some coarse rhonchi at the bases. Some mild wheezing also audible in the upper airways. CARDIOVASCULAR: Tachycardia. No obvious gallop or murmur. AXILLA: Without adenopathy. ABDOMEN: Obese, nontender, no evidence of mass. Abdomen is soft. Bowel sounds are positive at this time. Evidence of previous Lap-Band procedure. SKIN: Patient has also had a left hernia repair and evidence of surgery on the lateral aspect of the left knee. EXTREMITIES: There is no gross extremity edema, cyanosis or clubbing. GENITAL/RECTAL: Examinations are not performed. DIAGNOSTIC STUDIES LABORATORY DATA: Blood gas - pO2 93.7, pCO2 42.6. Glucose 117, BUN 24, Unit #: [id number] #: [id number] Patient: LUDWIG PENALOZA JR creatinine 1, albumin 4, alkaline phosphatase elevated at 121. WBC 9.4, hemoglobin 14.1, platelet count 226,000. NOTE: Approximately 60 minutes were spent discussing case with the patient. Dictated by... Deep Murcia M.D. LILY/breanna TD: 09/21/2016 11:37 JOB #: [id number] CC: Cici Parra M.D. CONSULTATION REPORT Page 1 of 1 X Deep Murcia MD X CONSULTATION REPORT
--- NOTE | ~2016-09-20 | CR71 ---
[facility] A Service of [facility] RADIOLOGY TEXT RESULTS PATIENT: LUDWIG RANDALL JR LOCATION: [facility] - : [birth year] UNIT #: [id number] AGE: [address]: Swapna Zamudio MD SEX: M ORDER DR: [id number] [facility] [address] [facility]. [place], [place] [address] [id number] I MR#: [id number] Acc #: [id number] NAME: LUDWIG RANDALL JR : 1965 SEX: M STUDY DATE/TIME: 09/24/2016 11:57 UNIT: [address] ROOM: [facility] STUDY DESCRIPTION: CR Chest Single View Attending Physician: Swapna Zamudio M.D. Ordering Physician: Ed Javier Ferrer M.D. Primary Care Physician: Kevin Prince Aprn MEDICAL IMAGING REPORT This report is preliminary unless electronic signature is present EXAM Portable chest. INDICATION 51-year-old male with pleural effusion. COMPARISON 09/22/2016 FINDINGS Right pleural effusion is decreased and there is improved aeration of the right lung mainly in the mid zone. Probable loculated component of fluid within the right upper zone. Left lung clear. Heart size stable. PICC line stable. No pneumothorax. IMPRESSION No pneumothorax. Decrease in size of right pleural effusion. Dictated by... Akbar Mckeon M.D. THIS IS AN ELECTRONICALLY VERIFIED REPORT Akbar Mckeon M.D. at 09/24/2016 4:42 PM BARB/haider TD: 09/24/2016 12:47 JOB #: [id number] MEDICAL IMAGING REPORT Page 1 of 1 COPY
--- NOTE | ~2016-09-20 | OR ---
Unit #: [id number] #: [id number] Patient: LUDWIG RANDALL JR [id number] [address] [place], [place] [address] [id number] I MR#: [id number] NAME: LUDWIG RANDALL JR ROOM: [facility] Date of Procedure: 09/22/2016 Admission Date: 09/20/2016 Surgeon: Roel Maldonado M.D. : 1965 Attending Physician: Swapna Zamudio M.D. 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 PROCEDURE PERFORMED Flexible fiberoptic bronchoscopy with washings collected, and with a brachytherapy catheter passed through the tumor in the distal bronchus intermedius. ANESTHESIA MAC plus local anesthesia. BLOOD LOSS None. COMPLICATIONS None. DESCRIPTION OF PROCEDURE The patient was taken to the endoscopy suite and placed on a fluoroscopy stretcher in a supine position. After appropriate monitoring lines had been placed, IV sedation was given per the Anesthesia Department. Anesthesia of the right naris was obtained using 2% Xylocaine plus Cetacaine spray. Anesthesia of the posterior pharynx was obtained using Cetacaine spray. Following this, the flexible bronchoscope was passed per the right naris into the posterior pharynx. The vocal cords were visualized and found to be without lesions and both moved well with phonation. 1% Xylocaine was injected per the scope to anesthetize the vocal cords. Following this, the scope was passed through the cords into the trachea. 1% Xylocaine was injected per the scope to anesthetize the tracheobronchial tree. Following this, the secretions present in the airway were suctioned free and sent for bacterial cultures. Examination of the distal trachea revealed some mild erythema and edema of the mucosa. The left mainstem bronchus was fairly normal except for some mild mucosal edema. The left upper lobe and left lower lobe were both examined to their subsegmental bronchi level and found to be within normal limits. Examination of the right upper lobe showed some mild mucosal edema, but all the segmental bronchi were open. Examination of the bronchus intermedius showed mucosal changes beginning about 1 cm or so from its takeoff. There was found to be bulky growth of tissue from the mucosa Unit #: [id number] #: [id number] Patient: LUDWIG RANDALL JR with a whitish discoloration. It should be stated that the patient had undergone endobronchial treatment of the tumor per Dr. Adiel Figueroa at [facility] last week. Therefore, the changes noted in the tumor of the distal bronchus intermedius are probably somewhat related to prior treatments of the tumor. I was able to pass the scope further down in the bronchus intermedius and did note a small opening going through where the tumor was present. The brachytherapy catheter was then passed per the scope down through the area of tumor with the brachytherapy catheter passed out into the right lower lobe somewhat. The scope was then removed keeping the brachytherapy catheter in this position in the right lower lobe. After the scope was removed, the brachytherapy catheter was secured in place to the nose. The patient was then transported by ambulance to the radiation center for brachytherapy treatment to the distal bronchus intermedius tumor. It should be stated that there was no blood loss noted during the procedure. The patient tolerated the procedure well. Dictated by... Cici Clark/prisca TD: 09/23/2016 01:36 JOB #: [id number] OPERATIVE REPORT Page 1 of 1 X Roel Maldonado MD X PROCEDURE OPERATIVE NOTE
--- NOTE | ~2016-09-20 | OR ---
Unit #: [id number] #: [id number] Patient: LUDWIG RANDALL JR [id number] [address] [place], [place] [address] [id number] I MR#: [id number] NAME: LUDWIG RANDALL JR ROOM: [facility] Date of Procedure: 09/28/2016 Admission Date: 09/20/2016 Surgeon: Roel Maldonado M.D. : 1965 Attending Physician: Swapna Zamudio M.D. 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 PROCEDURE PERFORMED Flexible fiberoptic bronchoscopy with washings collected and with insertion of a brachytherapy catheter. ANESTHESIA MAC plus local anesthesia. ESTIMATED BLOOD LOSS None. COMPLICATIONS None. DESCRIPTION OF PROCEDURE The patient was taken to the endoscopy suite and placed on the fluoroscopy table in a supine position. After appropriate monitoring lines had been placed, IV sedation was given per the Anesthesia Department. Following this, anesthesia of the right nares and posterior pharynx was obtained using 2% Xylocaine solution. Xylocaine ointment was also injected per the right naris. The flexible bronchoscope was then passed per the right naris into the posterior pharynx. The vocal cords were visualized and found to be without lesions. Anesthesia of the vocal cords was obtained by injecting 2% Xylocaine per the scope. The scope was passed through the cords into the trachea. 1% Xylocaine was injected per the scope to anesthetize the tracheobronchial tree. The entire length of trachea was visualized and found to be within normal limits. The john was sharp. The left mainstem bronchus was normal. The left upper lobe and left lower lobe were both examined to their subsegmental bronchi level and found to be within normal limits. The right upper lobe was examined to its subsegmental bronchi level and also found to be within normal limits. Examination of the bronchus intermedius showed tumor and necrotic material to be present about 1 cm a less from the takeoff of the right upper lobe. Photos were taken. There was a small opening through the area of the tumor. Washings that had been obtained up to this point were sent for Unit #: [id number] #: [id number] Patient: LUDWIG RANDALL JR bacterial cultures. Brachytherapy catheter was inserted per the bronchoscope and passed through the area of the tumor in the distal bronchus intermedius. Under fluoroscopic control, this brachytherapy catheter was passed out into the right lower lobe. Keeping the catheter in the same position, the bronchoscope was removed. In doing so, the guidewire in the brachytherapy catheter was removed. After the scope was fully removed, the guidewire was reinserted into the brachytherapy catheter. The position of the catheter in the right lower lobe was again confirmed to be in the same location. A guidewire was then cut just slightly distal to the brachytherapy catheter and then taped in place to it. The catheter was secured in place at the nose. The rest of the catheter was then coiled and taped to the forehead. The patient was then transported to the radiation center. Estimated blood loss in the procedure was essentially zero. The patient tolerated the procedure well. Dictated by... Cici Clark/prisca TD: 09/28/2016 23:31 JOB #: [id number] OPERATIVE REPORT Page 1 of 1 X Roel Maldonado MD X PROCEDURE OPERATIVE NOTE
--- NOTE | ~2016-09-20 | HP ---
Unit #: [id number] #: [id number] Patient: LUDWIG RANDALL JR [id number] [facility] [address] [facility]. [place], [place] [address] [id number] I MR#: [id number] NAME: LUDWIG RANDALL JR ROOM: [facility] Age: 51 Sex: M Admission Date: 09/20/2016 : 1965 Attending Physician: Gonzalo Figueroa M.D. Primary Care Physician: Kevin Prince Aprn HISTORY AND PHYSICAL CHIEF COMPLAINT Lung mass. HISTORY OF PRESENT ILLNESS Patient is a 51-year-old who was recently admitted at [facility], being treated by Dr. Maldonado, transferred here to [facility] for further evaluation and treatment by Dr. Figueroa. Currently, patient has chest pain 4 out of 10, no radiation, constant, aggravated with cough. No phlegm, no blood in sputum, and no abdominal pain. He does complain of right hip pain especially on movement, 10 out of 10 occasionally, currently stable. He has nausea. No vomiting, no diarrhea, and no constipation. PAST MEDICAL HISTORY 1. Patient was diagnosed with squamous cell carcinoma, right hilar area. Also, he had postobstructive pneumonia and drug-induced fever. 2. Chronic obstructive pulmonary disease. 3. Mediastinal adenopathy. 4. Right pleural effusion. 5. Obesity. 6. Hyperglycemia. 7. Multiple sclerosis. PAST SURGICAL HISTORY 1. Knee surgery. 2. Wound debridement. 3. Tonsillectomy. 4. Colonoscopy surgeries. MEDICATIONS 1. Tylenol 650 at 2 tablets q.6 p.r.n. 2. Dilaudid 0.5 IV q.2 p.r.n. 3. DuoNeb inhalation. 4. Gilenya 0.5 mg 1 capsule daily. 5. Flexeril 10 mg 3 times daily p.r.n. 6. Lidocaine 5% topical patch. 7. Lovenox 40 subcutaneous daily. 8. Oxycodone 5 mg p.r.n. 9. Percocet 5 mg q.4 p.r.n. 10. Zosyn IV. 11. Symbicort 160 mcg inhalation 2 puffs b.i.d. 12. Vancomycin with pharmacy to dose. 13. Zofran 4 mg IV q.4 p.r.n. Unit #: [id number] #: [id number] Patient: LUDWIG RANDALL JR ALLERGIES CLINDAMYCIN. FAMILY HISTORY Hypertension. REVIEW OF SYSTEMS I reviewed all systems with him which are negative except as in History of Present Illness. PHYSICAL EXAMINATION VITAL SIGNS: Temperature 98.9, pulse 102, respirations 24, and blood pressure 132/77. GENERAL: A 51-year-old lying in bed not in acute distress, able to provide a history, alert and oriented x3. HEENT: Pupils equally reactive to light and accommodation. No pallor, no icterus. Dry mucosa present. NECK: Supple. HEART: S1 and S2 heard. No murmurs. LUNGS: Clear to auscultation. No crackles, no rhonchi. ABDOMEN: Soft and nontender. No hepatosplenomegaly. EXTREMITIES: Trace pedal edema. SKIN: No rash. NEUROLOGICAL: Nonfocal. DIAGNOSTIC STUDIES LABORATORY: Currently unavailable because he was transferred from [facility]. ASSESSMENT AND PLAN 1. Malignant neoplasm. Patient will be seen by Dr. Maldonado, Dr. Figueroa, and Dr. Murcia. Treatment as per them. 2. Postobstructive pneumonia. Currently, patient is on IV vancomycin and Zosyn. Monitor closely. 3. Anemia most likely secondary to malignancy. No active bleeding. Monitor. 4. Hypokalemia. I am going to check his basic metabolic profile and replace if needed. 5. Severe protein malnutrition. I am going to ask clinical psychologist to see. 6. History of former smoking, stable. 7. Chronic obstructive pulmonary disease, stable. 1. Dictated by Cici Kyle/lesley TD: 09/20/2016 21:42 JOB #: [id number] Unit #: [id number] #: [id number] Patient: LUDWIG RANDALL JR HISTORY AND PHYSICAL Page 1 of 1 X Swapna Zamudio MD HISTORY AND PHYSICAL
--- NOTE | ~2016-09-20 | OR ---
Unit #: [id number] #: [id number] Patient: LUDWIG PENALOZA JR [id number] [facility] [address] [facility]. [place], [place] [address] [id number] I MR#: [id number] NAME: LUDWIG PENALOZA ROOM: 307 Date of Procedure: Admission Date: 09/20/2016 Surgeon: Deep Murcia M.D. : 1965 Attending Physician: Swapna Zamudio M.D. Primary Care Physician: Kevin Prince Aprn PROCEDURE OPERATIVE NOTE PREOPERATIVE DIAGNOSIS Stage II non-small malignancy of the right main stem and right middle lobe bronchus. POSTOPERATIVE DIAGNOSIS Stage II non-small malignancy of the right main stem and right middle lobe bronchus. PROCEDURE PERFORMED Fiberoptic bronchoscopy with placement of HDR catheter and subsequent HDR brachytherapy. INDICATION Mr. 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 The patient has undergone chemotherapy with Dr. Leslie Figueroa. In addition, he underwent HDR brachytherapy dated 09/22/16. He received a total of 500 cGy depth of 1 cm to an active length of approximately 5 cm. He returns today for the second of three planned high dose right remote afterloading procedures to the right lung. DESCRIPTION OF PROCEDURE The patient was seen in the endoscopy suite at [facility]. His bronchoscopy and placement of HDR catheters were performed by Dr. Roel Maldonado. This was under fluoroscopic guidance. The patient received a total of 50 mcg of Fentanyl as well as 2 mg of Versed IV in addition to local lidocaine. The patient was quite comfortable. He was transported with myself and Dr. Maldonado in attendance to [facility] where CT treatment planing was performed and treatment volumes delineated. The patient once again had an active length of approximately 5 cm outlined based on CT imaging and a dose of 500 cGy was delivered at 1 cm from applicator surface. This was done with a [employer] HDR unit with an iridium 192 source. This was done without complication. Once completed, the HDR catheter was removed without complications. The patient was transferred back to [facility] in expectation of discharge later today. Plans going forward are for combination chemoradiotherapy is not an operable candidate per Dr. Maldonado. He will undergo CT planning for IMRT later today as well. Unit #: [id number] #: [id number] Patient: LUDWIG PENALOZA JR COMPLICATIONS None. ESTIMATED BLOOD LOSS Zero. Followup evaluation in five days at [facility]. Dictated by... Deep Murcia M.D. J/enrique TD: 09/28/2016 09:57 JOB #: [id number] CC: Cici Clark M.D. PROCEDURE OPERATIVE NOTE Page 1 of 1 X Deep Murcia MD X PROCEDURE OPERATIVE NOTE
--- NOTE | ~2016-09-20 | XA203 ---
[facility] A Service of [facility] RADIOLOGY TEXT RESULTS PATIENT: LUDWIG RANDALL JR LOCATION: [facility] : [birth year] UNIT #: [id number] AGE: [address]: Swapna Zamudio MD SEX: M ORDER DR: [id number] [place] [id number] [facility]. [place], [place] [address] [id number] I MR#: [id number] Acc #: [id number] NAME: LUDWIG RANDALL JR : 1965 SEX: M STUDY DATE/TIME: 09/24/2016 11:38 UNIT: [facility] PCU ROOM: [address] [place] [address] DESCRIPTION: XA Thoracentesis Attending Physician: Swapna Zamudio M.D. Ordering Physician: Roel Maldonado M.D. Primary Care Physician: Kevin Prince Aprn MEDICAL IMAGING REPORT This report is preliminary unless electronic signature is present EXAM Attempted right thoracentesis. INDICATIONS Right pleural effusion. The risks, benefits, and alternatives of the procedure were discussed with the patient and informed consent was obtained. In the procedure room, a time out was performed confirming correct patient and procedure. All elements of maximum sterile-barrier technique utilized according to guidelines appropriate for the procedure. TECHNIQUE/FINDINGS Ultrasound of the posterior hemithorax was performed. This did demonstrate a small amount of fluid, although it was difficult to see. The overlying skin was prepped and draped in usual sterile fashion. 1% lidocaine was utilized to anesthetize skin and underlying subcutaneous tissues. Next under ultrasound guidance, real-time guidance was utilized and a Yueh catheter was inserted into the pleural space, however no fluid was able to be aspirated. The needle was removed and a sterile dressing was applied. No immediate complications. IMPRESSION Unsuccessful thoracentesis as no fluid was able to be aspirated. Dictated by... Akbar Mckeon M.D. THIS IS AN ELECTRONICALLY VERIFIED REPORT [facility] A Service of [facility] RADIOLOGY TEXT RESULTS PATIENT: LUDWIG RANDALL JR LOCATION: [facility] : 67 UNIT #: [id number] AGE: [address]: Swapna Zamudio MD SEX: M ORDER DR: Akbar Mckeon M.D. at 09/25/2016 9:36 AM ARS/pcl TD: 09/24/2016 17:06 JOB #: [id number] MEDICAL IMAGING REPORT Page 1 of 1 COPY
--- NOTE | ~2016-09-20 | CT55 ---
[facility] A Service [facility] RADIOLOGY TEXT RESULTS PATIENT: LUDWIG RANDALL JR LOCATION: [facility] 307- : [birth year] UNIT #: [id number] AGE: [address]: Swapna Zamudio MD SEX: M ORDER DR: [id number] [facility] [address] [facility]. [place], [place] [address] [id number] I MR#: [id number] Acc #: [id number] NAME: LUDWIG RANDALL JR : 1965 SEX: M STUDY DATE/TIME: 09/21/2016 18:10 UNIT: [address] ROOM: [facility] STUDY DESCRIPTION: CT Chest W Con Attending Physician: Swapna Zamudio M.D. Ordering Physician: Swapna Zamudio M.D. Primary Care Physician: Kevin Prince Aprn MEDICAL IMAGING REPORT This report is preliminary unless electronic signature is present EXAM CT chest with contrast. INDICATION Followup lung cancer. Pleural effusion. TECHNIQUE CT of the chest was performed following administration of IV contrast. Coronal and sagittal reformatted images were obtained. This CT exam was performed with one or more of the following radiation dose reduction techniques: automatic exposure control, adjustment of mA and/or kV according to patient size, and iterative reconstruction. COMPARISON Chest CT from 09/17/2016 FINDINGS There is a stable loculated appearing right pleural effusion. There is no pleural effusion on the left. There is stable atelectasis/consolidation of the right lower lobe. There is stable partial atelectasis of the right upper lobe. There is narrowing of the bronchus intermedius. This is stable. Stable mildly enlarged mediastinal lymph nodes. Stable tiny left upper lobe pulmonary nodule. No new infiltrates. Limited imaging of the upper abdomen demonstrates a Lap-Band. Cholecystectomy clips. The bone windows are unremarkable. IMPRESSION There has been no significant interval change in the appearance of the chest compared with 09/17/2016. There is a stable multiloculated appearing right pleural effusion with stable right lower lobe [facility] A Service [facility] RADIOLOGY TEXT RESULTS PATIENT: LUDWIG RANDALL JR LOCATION: [facility] 307-01 : [birth year] UNIT #: [id number] AGE: [address]: Swapna Zamudio MD SEX: M ORDER DR: consolidation/atelectasis and significant narrowing of the right bronchus intermedius. There is stable partial atelectasis of the right upper lobe. Additional findings as described above are also stable. Dictated by... Akbar Mckeon M.D. THIS IS AN ELECTRONICALLY VERIFIED REPORT Akbar Mckeon M.D. at 09/22/2016 10:03 AM BARB/benjamín TD: 09/21/2016 23:03 JOB #: [id number] MEDICAL IMAGING REPORT Page 1 of 1 COPY
--- NOTE | ~2016-09-20 | DS ---
Unit #: [id number] #: [id number] Patient: LUDWIG RANDALL JR [id number] [address] [address] [id number] I MR#: [id number] NAME: LUDWIG RANDALL ROOM: 307 Age: 51 Sex: M Admission Date: 09/20/2016 : 1965 Discharge Date: Attending Physician: Swapna Zamudio M.D. Primary Care Physician: Kevin Prince Aprn DISCHARGE SUMMARY DISCHARGE DIAGNOSES 1. 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 Status post radiation and chemotherapy. 2. Postobstructive pneumonia. 3. Pleural effusion. Could not do thoracentesis because of loculated fluid. 4. Anemia. No active bleeding. 5. Severe protein malnutrition. 6. Leukocytosis. 7. Obstructive sleep apnea. 8. Chronic obstructive pulmonary disease. 9. Morbid obesity. 10. Mild hyponatremia. 11. Multiple sclerosis. 12. Diabetes mellitus type 2, newly diagnosed. CONSULTATIONS 1. Dr. Figueroa. 2. Dr. Deep Murcia. 3. Dr. Maldonado. PROCEDURES 1. The patient had bronchoscopy on September 20. 2. On September 22 the patient had flexible fiberoptic bronchoscopy again. 3. The patient had repeated thoracentesis, but fluid cannot be removed because loculated. DIAGNOSTIC TESTING LAB DATA: Bronchoscopic culture is negative so far. WBC 6.4, hemoglobin 10.1, platelets 430. Sodium 133, potassium 4.8, creatinine 0.9, AST 17, ALT 19, alkaline phosphatase 229, albumin 2.4. Bronchoscopic culture shows normal respiratory michaela. IMAGING: CT chest without contrast shows multiloculated right pleural effusion, stable right-sided infiltrate versus atelectasis. ALLERGIES Clindamycin. DISCHARGE MEDICATIONS 1. Albuterol inhalation q.6. 2. Colace 100 p.o. b.i.d. OTC. 3. Percocet 10 mg q.6 p.r.n. pain. 4. Flexeril 10 mg q.8 p.r.n. muscle spasms. Unit #: [id number] #: [id number] Patient: LUDWIG RANDALL JR 5. Augmentin 875 p.o. b.i.d. for 10 days. HOSPITALIZATION COURSE A 51 year old admitted from [facility] for lung cancer. Non-small cell lung cancer, stage IIIA. Patient seen by Dr. Murcia and Dr. Figueroa. Patient received chemotherapy and 0338. Currently lab data is okay. He is tolerating diet okay. He is ambulating okay. The patient is being discharged. Postobstructive pneumonia. The patient was seen by infectious disease. The patient received IV vancomycin and Zosyn. Bronchoscopic cultures are negative. The patient will continue with Augmentin for 10 days. Right pleural effusion. The patient could not have thoracentesis. Initial differential was empyema, but thoracentesis could not be done. The patient will continue with Augmentin for 10 days. Less likely empyema because the patient is not severely sick. Diabetes mellitus type 2, newly diagnosed. Patient refusing insulin. Anemia. No active bleeding. Most likely secondary to cancer. COPD. Stable. Severe protein malnutrition. Continue with high-protein diet. Morbid obesity secondary to calories. DISCHARGE PLAN 1. Discussed with family. Patient is okay to be discharged home. 2. Home O2 eval. 3. Follow with family physician in 1 week time. 4. Follow with Dr. Figueroa in 1 week. 5. Follow with Dr. Maldonado in 1 week. NOTE: Discharge time taken is 32 minutes. Dictated by... Cici Kyle/breanna TD: 09/28/2016 16:12 JOB #: [id number] DISCHARGE SUMMARY Page 1 of 1 X Swapna Zamudio MD X DISCHARGE SUMMARY
--- NOTE | ~2016-09-20 | CO ---
Unit #: [id number] #: [id number] Patient: LUDWIG RANDALL JR [id number] [address] [place], [place] [address] [id number] I MR#: [id number] NAME: LUDWIG RANDALL JR ROOM: 307 Age: 51 Sex: M Admission Date: 09/20/2016 : 1965 Attending Physician: Swapna Zamudio M.D. Primary Care Physician: Kevin Prince Aprn CONSULTATION REPORT REVISED REPORT CHIEF COMPLAINT 4 cm right sided hilar mass, squamous cell carcinoma, multiple sclerosis, now obstructive pneumonia. HISTORY OF PRESENT ILLNESS The patient is a 51-year-old male, who came to the hospital on June 06, 2016, with chest pain, short of breath. Patient had a CT of the chest that showed right middle lobe infiltrate. There was no obvious mass. However, the patient came to hospital with the same symptoms. CT of the chest on August 04, 2016, showed 3.0 x 3.7 cm right hilar mass. There was a middle lobe infiltrate atelectasis. PET scan confirmed the above mass, SUV 17. Patient had bronchoscopy and biopsy biopsy is positive for squamous cell carcinoma. MRA of brain is normal. He has MS. He is taking Gilenya. It is on hold by neurologist because he is going to get chemo. Presented the case to the tumor board and had an extensive discussion with the patient and the family. The plan was to do a mediastinoscopy and then possible surgery. In the meantime, he developed shortness of breath, cough, fever. Had obstructive pneumonia. Was admitted in [facility], receiving multiple antibiotics. At present, there is a significant obstruction and needs immediate chemo and radiation. Presently, he is feeling better, getting antibiotics. REVIEW OF SYSTEMS CONSTITUTIONAL: No fever, no chills, no sweats, no weight loss. EYES: No visual symptoms. EARS, NOSE AND THROAT: There is no runny nose or sore throat or difficulty hearing. CARDIOVASCULAR: No chest pain. No shortness of breath. No palpitations. No orthopnea. No PND. RESPIRATORY: Short of breath, cough. GASTROINTESTINAL: No nausea, vomiting, diarrhea, constipation, hematochezia or melena. GENITOURINARY: No urinary frequency, hesitancy or urgency. No blood in the urine. MUSCULOSKELETAL: No muscle or joint pain. NEUROLOGIC: No headache. No numbness or tingling. No weakness. No Unit #: [id number] #: [id number] Patient: LUDWIG RANDALL JR. PSYCHIATRIC: No anxiety, depression or mood disturbance. ENDOCRINE: No excessive urination or thirst. DERMATOLOGIC: No rash or change in the skin. ALLERGIC/IMMUNOLOGIC: No symptoms. HEMATOLOGIC/LYMPHATIC: Denies any symptoms. PAST MEDICAL HISTORY MS since 2005, taking Gilenya, now stage 3 non-small cell lung cancer, squamous cell. ALLERGIES Clindamycin. SOCIAL HISTORY The patient has been smoking one pack per day for 30 years, started at age of 15. Denies alcohol abuse. He is on disability. SURGICAL HISTORY Multiple surgeries includin. Tonsillectomy. 2. Cholecystectomy. 3. Lap banding. He used to weigh about 400 pounds, now he weighs about 335 pounds. FAMILY HISTORY Negative for cancer. PHYSICAL EXAMINATION GENERAL: Patient is comfortable. ECOG is 0. The patient is pleasant. VITAL SIGNS: Temperature 99.1, pulse 90, respiratory rate 18, O2 at 2 L, blood pressure 132/76. HEENT: Moist mucosa. Pupils equally reactive to light. Extraocular muscles intact. Sclerae anicteric. No obvious bleeding from nasal mucosa or oral mucosa. Scalp normal. Hearing normal. NECK: No JVD. No lymphadenopathy. LYMPHATIC/HEMATOLOGIC: There is no palpable adenopathy in the neck, axilla or inguinal area. CARDIOVASCULAR: S1, S2. Regular rate and rhythm. No S3 or S4. RESPIRATORY: Chest symmetrical, normal. Clear to auscultation bilaterally. No wheezes, no rales, no rhonchi. No dullness to percussion. ABDOMEN/GASTROINTESTINAL: Abdomen is soft, nontender, nondistended. No hepatosplenomegaly. EXTREMITIES: There is no clubbing, no cyanosis, no edema. No varicose veins. NEUROLOGICAL: Patient is alert, awake and oriented x3. Cranial nerves II-XII are intact. Sensory grossly intact. Motor is 4/5 in all four extremities. Gait is normal. Station is normal. Language is normal. Memory is normal. DTRs +2 in all four extremities. MUSCULOSKELETAL: No joint swelling. No bony tenderness. No muscle tenderness. SKIN: No petechiae, no rash, no ecchymosis. PSYCHIATRIC: No anxiety. No delusions or hallucinations. There is no agitation. Eye contact is normal. Affect is appropriate. There is no flight of ideas. DIAGNOSTIC STUDIES IMAGING: All imaging studies mentioned above. Unit #: [id number] #: [id number] Patient: LUDWIG RANDALL JR CT scan, PET scan, MRA of brain as mentioned above. LABORATORY: Labs today are pending. ASSESSMENT AND PLAN This is a 51-year-old male who has the following active issues: 1. Non-small cell lung cancer, stage 3A. There is an obstructing lesion. Patient has obstructive pneumonia. At present, we will start patient on chemo and radiation. He also needs HDR. This is bronchoscopic-guided local radiation. I will give him carboplatin and Taxol. Will also give him Granix. If his condition improves, we may re-evaluate for resection. In the future, he needs mediastinoscopy. I had an extensive discussion with patient, family, Dr. Murcia and Dr. Maldonado. We will work together to try to do the best for the patient. 2. Respiratory: Patient has obstructive pneumonia, chronic obstructive pulmonary disease, receiving antibiotics. I discussed with infectious disease team. Will continue antibiotics. He is taking Zosyn, it is working. DISCUSSION I had an extensive discussion with patient and his family member, Dr. Murcia, Dr. Maldonado. At present, concurrent chemoradiation includes HDR as well. This is bronchoscopic-guided. If his condition improves, we made re-evaluate for possible resection. Dictated by... Cici Parra TD: 09/21/2016 12:46 JOB #: [id number] CONSULTATION REPORT Page 1 of 1 X Gonzalo Figueroa MD CONSULTATION REPORT
--- NOTE | ~2016-09-20 | BMI ---
[facility] Nutrition Therapy DATE: 09/21/16 Patient: LUDWIG RANDALL Physician: FLORECITA Address: [address] [place] [address] DRIVE Room/Bed: [address] [place] [address], Zip: [place] [address] Admit Date: 09/20/16 Date of : [birth year] Height: 5 7 Weight: 339 154.2 HIGH BMI NOTE: DX: 51 Y.O. MALE ADMITTED FOR LUNG CANCER ANTHROPOMETRICS: 5'7", WT: 337# (153 KG), BMI: 52.8 DIET: NPO INTERVENTION: 1. NPO RECOMMENDATIONS: 1. ONCE MEDICALLY FEASIBLE, ADVANCE DIET INDICATED TO CC+HH TO PROMOTE GRADUAL WEIGHT LOSS TOWARDS HEALTHY BMI (19.0-25.0) OR +/-10%IBW RD WILL F/U PER PROTOCOL Respectfully, STUART HE MS, RD, LD Food and Nutritional Services [facility] cc: client file
[~2016-09-20 19:14] MED LIST changes: -ALEVE220 M1 PO; -ARTHRITIS PAIN650 M3 PO; -DAZIDOX10 MG PO; -DILAUDID8 MG PO; -DOCUSATE SODIU100 MG PO; -DOK100 MG PO; -FERROUS GLUCON324 M2 PO; -GI COCKTAIL; -GI COCKTAIL PO; -K-DUR20 ME1 PO; -LOPRESSOR PO; -MAG-OX 400400 M1 PO; -MIRALAX17 GM DOB; -PERCOCET10 PO; -PROTONIX PO; -VITAMIN B 12
[2016-09-21 12:15] LABS: HEMATOCRIT 31.7 % (38.0-50.0); HEMOGLOBIN 10.3 gm/dL (13.0-16.0); MEAN CELL VOLUME 88.9 FL (83-96); MEAN CORPUSCULAR HEMOGLOBIN 28.9 PG (28-34); MEAN CORPUSCULAR HGB CONC 32.5 g/dL (30-36); MEAN PLATELET VOLUME 7.4 FL (6.5-11.5); RED BLOOD COUNT 3.56 X10e (3.90-5.60); RED CELL DISTRIBUTION WIDTH 14.2 % (11.0-15.5); WHITE BLOOD COUNT 18.5 X10e3 (4.0-10.5)
[2016-09-21 12:48] LABS: ALBUMIN SERUM 1.9 g/dL (3.5-5.0); BILIRUBIN,TOTAL 0.8 mg/dL (0.2-2.0); BUN/CREATININE RATIO 8.88; CALCIUM SERUM 8.2 mg/dL (8.4-10.2); CREATININE SERUM 0.9 mg/dL (0.6-1.4); GLOM FILT RATE Estimated 99.2 mL/min (>60); POTASSIUM 3.8 mmol/L (3.5-5.1)
[2016-09-22 13:55] LABS: HEMATOCRIT 30.1 % (38.0-50.0); HEMOGLOBIN 9.8 gm/dL (13.0-16.0); MEAN CELL VOLUME 88.8 FL (83-96); MEAN CORPUSCULAR HEMOGLOBIN 28.8 PG (28-34); MEAN CORPUSCULAR HGB CONC 32.4 g/dL (30-36); MEAN PLATELET VOLUME 7.8 FL (6.5-11.5); RED BLOOD COUNT 3.39 X10e (3.90-5.60); RED CELL DISTRIBUTION WIDTH 14.2 % (11.0-15.5); WHITE BLOOD COUNT 16.4 X10e3 (4.0-10.5)
[2016-09-22 14:05] LABS: INR 1.1; PARTIAL THROMBOPLASTIN TIME 31.1 SECONDS (23.5-31.3); PROTHROMBIN TIME (PATIENT) 11.6 SECONDS (9.6-11.5)
[2016-09-22 14:18] LABS: ALBUMIN SERUM 1.9 g/dL (3.5-5.0); BILIRUBIN,TOTAL 0.7 mg/dL (0.2-2.0); BUN/CREATININE RATIO 11.11; CALCIUM SERUM 8.2 mg/dL (8.4-10.2); CREATININE SERUM 0.9 mg/dL (0.6-1.4); GLOM FILT RATE Estimated 99.2 mL/min (>60); POTASSIUM 3.8 mmol/L (3.5-5.1); PROTEIN TOTAL SERUM 6.1 g/dL (6.0-8.3)
[2016-09-22 14:25] LABS: IRON SERUM 22 ug/dL (45-182); TOTAL IRON BINDING CAPACITY 130 ug/dL (252-460); TRANSFERRIN 93 mg/dL (180-329); TRANSFERRIN SATURATION 17 % (20-50)
[2016-09-23 05:22] LABS: HEMATOCRIT 31.6 % (38.0-50.0); HEMOGLOBIN 10.2 gm/dL (13.0-16.0); MEAN CELL VOLUME 88.6 FL (83-96); MEAN CORPUSCULAR HEMOGLOBIN 28.6 PG (28-34); MEAN CORPUSCULAR HGB CONC 32.3 g/dL (30-36); RED BLOOD COUNT 3.56 X10e (3.90-5.60); RED CELL DISTRIBUTION WIDTH 13.8 % (11.0-15.5); WHITE BLOOD COUNT 14.1 X10e3 (4.0-10.5)
[2016-09-23 06:04] LABS: ALBUMIN SERUM 1.8 g/dL (3.5-5.0); BILIRUBIN,TOTAL 0.5 mg/dL (0.2-2.0); BUN/CREATININE RATIO 11.25; CALCIUM SERUM 8.1 mg/dL (8.4-10.2); CREATININE SERUM 0.8 mg/dL (0.6-1.4); GLOM FILT RATE Estimated 104.2 mL/min (>60); MAGNESIUM 2.1 mg/dL (1.6-3.0); PHOSPHOROUS 3.3 mg/dL (2.5-4.6); POTASSIUM 4.7 mmol/L (3.5-5.1); PROTEIN TOTAL SERUM 6.3 g/dL (6.0-8.3)
[2016-09-24 05:42] LABS: HEMATOCRIT 30.4 % (38.0-50.0); HEMOGLOBIN 9.7 gm/dL (13.0-16.0); MEAN CELL VOLUME 88.7 FL (83-96); MEAN CORPUSCULAR HEMOGLOBIN 28.3 PG (28-34); MEAN PLATELET VOLUME 8.3 FL (6.5-11.5); RED BLOOD COUNT 3.43 X10e (3.90-5.60); RED CELL DISTRIBUTION WIDTH 13.6 % (11.0-15.5)
[2016-09-24 05:48] LABS: WHITE BLOOD COUNT 35.7 X10e3 (4.0-10.5)
[2016-09-24 06:33] LABS: ALBUMIN SERUM 1.9 g/dL (3.5-5.0); BILIRUBIN,TOTAL 0.6 mg/dL (0.2-2.0); BUN/CREATININE RATIO 13.75; CALCIUM SERUM 8.2 mg/dL (8.4-10.2); CREATININE SERUM 0.8 mg/dL (0.6-1.4); GLOM FILT RATE Estimated 104.2 mL/min (>60); POTASSIUM 3.9 mmol/L (3.5-5.1); PROTEIN TOTAL SERUM 6.3 g/dL (6.0-8.3)
[2016-09-24 12:20] LABS: PROTEIN TOTAL SERUM 5.1 g/dL (6.0-8.3)
[2016-09-25 06:03] LABS: HEMATOCRIT 31.2 % (38.0-50.0); HEMOGLOBIN 9.7 gm/dL (13.0-16.0); MEAN CELL VOLUME 89.6 FL (83-96); MEAN CORPUSCULAR HGB CONC 31.2 g/dL (30-36); MEAN PLATELET VOLUME 8.7 FL (6.5-11.5); RED BLOOD COUNT 3.48 X10e (3.90-5.60); RED CELL DISTRIBUTION WIDTH 14.1 % (11.0-15.5); WHITE BLOOD COUNT 32.4 X10e3 (4.0-10.5)
[2016-09-25 07:09] LABS: BILIRUBIN,TOTAL 0.7 mg/dL (0.2-2.0); BUN/CREATININE RATIO 12.5; CALCIUM SERUM 8.7 mg/dL (8.4-10.2); CREATININE SERUM 0.8 mg/dL (0.6-1.4); GLOM FILT RATE Estimated 104.2 mL/min (>60); POTASSIUM 4.4 mmol/L (3.5-5.1); PROTEIN TOTAL SERUM 6.2 g/dL (6.0-8.3)
[2016-09-26 05:55] LABS: HEMATOCRIT 31.1 % (38.0-50.0); HEMOGLOBIN 9.9 gm/dL (13.0-16.0); MEAN CELL VOLUME 89.1 FL (83-96); MEAN CORPUSCULAR HEMOGLOBIN 28.4 PG (28-34); MEAN CORPUSCULAR HGB CONC 31.9 g/dL (30-36); MEAN PLATELET VOLUME 8.4 FL (6.5-11.5); RED BLOOD COUNT 3.49 X10e (3.90-5.60); RED CELL DISTRIBUTION WIDTH 14.1 % (11.0-15.5); WHITE BLOOD COUNT 27.2 X10e3 (4.0-10.5)
[2016-09-26 06:46] LABS: BILIRUBIN,TOTAL 0.7 mg/dL (0.2-2.0); CALCIUM SERUM 8.8 mg/dL (8.4-10.2); CREATININE SERUM 0.8 mg/dL (0.6-1.4); GLOM FILT RATE Estimated 104.2 mL/min (>60); POTASSIUM 4.8 mmol/L (3.5-5.1); PROTEIN TOTAL SERUM 5.8 g/dL (6.0-8.3)
[2016-09-27 06:22] LABS: HEMATOCRIT 30.9 % (38.0-50.0); HEMOGLOBIN 10.2 gm/dL (13.0-16.0); MEAN CELL VOLUME 87.5 FL (83-96); MEAN CORPUSCULAR HGB CONC 33.1 g/dL (30-36); MEAN PLATELET VOLUME 8.3 FL (6.5-11.5); RED BLOOD COUNT 3.52 X10e (3.90-5.60); RED CELL DISTRIBUTION WIDTH 13.8 % (11.0-15.5)
[2016-09-27 06:36] LABS: WHITE BLOOD COUNT 11.6 X10e3 (4.0-10.5)
[2016-09-28 04:42] LABS: ALBUMIN SERUM 2.4 g/dL (3.5-5.0); BILIRUBIN,TOTAL 0.8 mg/dL (0.2-2.0); BUN/CREATININE RATIO 14.44; CALCIUM SERUM 9.4 mg/dL (8.4-10.2); CREATININE SERUM 0.9 mg/dL (0.6-1.4); GLOM FILT RATE Estimated 99.2 mL/min (>60); PHOSPHOROUS 3.9 mg/dL (2.5-4.6); POTASSIUM 4.8 mmol/L (3.5-5.1); PROTEIN TOTAL SERUM 7.3 g/dL (6.0-8.3)
[2016-09-28 04:45] LABS: BASOPHIL% 0.4 % (0-2.5); EOSINOPHIL# 0.2 X10e3 (0-0.7); HEMATOCRIT 30.4 % (38.0-50.0); HEMOGLOBIN 10.1 gm/dL (13.0-16.0); LYMPHOCYTE# 0.5 X10e3 (1.0-3.5); LYMPHOCYTE% 7.3 % (17.0-45.0); MEAN CELL VOLUME 87.4 FL (83-96); MEAN CORPUSCULAR HEMOGLOBIN 28.9 PG (28-34); MEAN CORPUSCULAR HGB CONC 33.1 g/dL (30-36); MEAN PLATELET VOLUME 7.9 FL (6.5-11.5); MONOCYTE# 0.4 X10e3 (0-1.0); MONOCYTE% 5.8 % (3.0-12.0); NEUTROPHIL# 5.3 X10e3 (1.5-7.1); NEUTROPHIL% 83.5 % (40-75); PLATELET COUNT 430 X10e3 (140-420); RED BLOOD COUNT 3.48 X10e (3.90-5.60); RED CELL DISTRIBUTION WIDTH 14.3 % (11.0-15.5); WHITE BLOOD COUNT 6.4 X10e3 (4.0-10.5)
[2016-09-28 04:46] LABS: DIFF IND NO
[2016-09-28] MEDS ORDERED: DOK100 MG PO (15:49)
[2016-09-28] MEDS ORDERED: AUGMENTIN PO (15:50)
[2016-10-13] MEDS ORDERED: ARTHRITIS PAIN650 M3 PO (14:33)
[2016-10-25] MEDS ORDERED: GI COCKTAIL PO (10:35)
[2016-10-25] MEDS ORDERED: ALEVE220 M1 PO (10:39)
[2016-10-28] MEDS ORDERED: VITAMIN B 12 (08:09)
== END 2016-09-28 18:55 | disposition home or self-care (01) | DRG 166 ==
LOC: C3A PCU 19:14
PROVIDERS: Internal Medicine; Internal Medicine Hematology; Nurse Practitioner Family; Surgery
PROC: 0BH Respiratory System, Insertion (ICD-10-PCS; principal; 2016-09-20)
PROC: 0B9L8ZZ Drainage of Left Lung, Via Natural or Artificial Opening Endoscopic (ICD-10-PCS; 2016-09-20)
PROC: [UNRECOGNIZED PROCEDURE] (2016-09-20)
PROC: 0BH Respiratory System, Insertion (ICD-10-PCS; 2016-09-22)
PROC: [UNRECOGNIZED PROCEDURE] (2016-09-22)
PROC: 0B938ZX Drainage of Right Main Bronchus, Via Natural or Artificial Opening Endoscopic, Diagnostic (ICD-10-PCS; 2016-09-22)
PROC: 0BH Respiratory System, Insertion (ICD-10-PCS; 2016-09-28)
PROC: 0BB48ZX Excision of Right Upper Lobe Bronchus, Via Natural or Artificial Opening Endoscopic, Diagnostic (ICD-10-PCS; 2016-09-28)
DX: C34.01 Malignant neoplasm of right main bronchus (principal); J18.9 Pneumonia, unspecified organism; E43 Unspecified severe protein-calorie malnutrition; C34.2 Malignant neoplasm of middle lobe, bronchus or lung; J44.9 Chronic obstructive pulmonary disease, unspecified; E87.1 Hypo-osmolality and hyponatremia; D64.9 Anemia, unspecified; G35 Multiple sclerosis; Z90.49 Acquired absence of other specified parts of digestive tract; F31.9 Bipolar disorder, unspecified; H91.90 Unspecified hearing loss, unspecified ear; Z97.4 Presence of external hearing-aid; F17.210 Nicotine dependence, cigarettes, uncomplicated; D72.829 Elevated white blood cell count, unspecified; G47.33 Obstructive sleep apnea (adult) (pediatric); E66.01 Morbid (severe) obesity due to excess calories; E11.9 Type 2 diabetes mellitus without complications; E87.6 Hypokalemia; Z98.84 Bariatric surgery status
CPT/HCPCS: 71010; 71260; 76000; 80053; 82728; 82947; 83036; 83540; 83550; 83615; 83735; 84100; 84155; 85025; 85027; 85610; 85730; 87070; 87205; 94640; 94664; 94760; 97162; 97166; G8978-GP; G8979-GP; G8980-GP; G8987-GO; G8988-GO; G8989-GO; J0171; J0330; J1100; J1170; J1200; J1447; J1450; J1650; J1815; J2250; J2405; J2469; J2543; J3010; J9045; J9267; Q9967

== ENCOUNTER → 2016-10-15 | Day surgery (SDC) | payer OTHER, MEDICARE ==
[~2016-10-15] MED LIST changes: +ALEVE220 M1 PO; +ARTHRITIS PAIN650 M3 PO; +DAZIDOX10 MG PO; +DILAUDID8 MG PO; +DOCUSATE SODIU100 MG PO; +DOK100 MG PO; +FERROUS GLUCON324 M2 PO; +GI COCKTAIL; +GI COCKTAIL PO; +K-DUR20 ME1 PO; +LOPRESSOR PO; +MAG-OX 400400 M1 PO; +MIRALAX17 GM DOB; +PERCOCET10 PO; +PROTONIX PO; +VITAMIN B 12
--- NOTE | ~2016-10-15 | OR ---
Unit #: [id number] #: [id number] Patient: LUDWIG RANDALL JR [id number] [address] [place], [place] [address] [id number] O MR#: [id number] NAME: LUDWIG RANDALL JR ROOM: Date of Procedure: 10/15/2016 Admission Date: 10/15/2016 Surgeon: Roel Maldonado M.D. : 1965 Attending Physician: Roel Maldonado M.D. 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 PROCEDURES PERFORMED Flexible fiberoptic bronchoscopy with biopsy, debulking of the necrotic tumor of the distal bronchus intermedius, and with bronchial washings collected. ANESTHESIA MAC. ESTIMATED BLOOD LOSS Minimal. COMPLICATIONS None. DESCRIPTION OF PROCEDURE The patient was taken to the endoscopy suite and left on a stretcher in a supine position. After appropriate monitoring lines had been placed, IV sedation was given per the Anesthesia Department. Anesthesia of the posterior pharynx was obtained using Hurricaine spray. The therapeutic flexible bronchoscope was then passed orally per a bite block into the posterior pharynx. The vocal cords were visualized and found to be without lesions. Anesthesia of the cords was obtained by injecting 2% Xylocaine per the scope. The scope was passed through the cords into the trachea. 1% Xylocaine was injected per the scope to anesthetize the tracheobronchial tree. The entire length of the trachea was visualized and found to be within normal limits. The john was fairly sharp. The left mainstem bronchus was normal. The left upper lobe and left lower lobe were both examined to their subsegmental bronchi level and found to be within normal limits. The right upper lobe was examined to its subsegmental bronchi level and found to be within normal limits. Examination was then carried out of the bronchus intermedius. There was found to be mucosal changes of the bronchus intermedius beginning at about a centimeter to a centimeter and a half distal to the takeoff of the right upper lobe. Distally in the bronchus intermedius, there was found to be a Unit #: [id number] #: [id number] Patient: LUDWIG RANDALL JR whitish necrotic tumor that was still partially obstructing the right lower lobe bronchus and right middle lobe bronchus. Photos were taken. Biopsy and debulking were carried out of this necrotic tumor. At the completion of the procedure, a good portion of the necrotic tumor had been removed. There was noted to be some mucus extruding from the segmental bronchi of the right lower lobe after the obstructing tumor had been removed. At the completion of the procedure, some of the segmental bronchi of the right lower lobe were able to be visualized. It was felt that some of the additional necrotic tissue would be swept off and coughed up with time. It should also be stated that the patient is getting his third brachytherapy treatment in about 7 to 10 days from now. Bronchial washings were collected and sent for bacterial cultures. The bronchoscope was removed. The patient tolerated the procedure well and left the endoscopy suite in satisfactory condition. Dictated by... Cici Clark/prisca TD: 10/16/2016 00:51 JOB #: [id number] OPERATIVE REPORT Page 1 of 1 X Roel Maldonado MD X PROCEDURE OPERATIVE NOTE
== END | disposition home or self-care (01) ==
LOC: COPS 11:36
DX: C34.90 Malignant neoplasm of unspecified part of unspecified bronchus or lung (principal); J45.909 Unspecified asthma, uncomplicated; Z88.1 Allergy status to other antibiotic agents; Z79.891 Long term (current) use of opiate analgesic; Z79.899 Other long term (current) drug therapy; Z90.49 Acquired absence of other specified parts of digestive tract; Z98.84 Bariatric surgery status
CPT/HCPCS: 87070; 87205; J0171

== ENCOUNTER → 2016-10-28 | Day surgery (SDC) | payer OTHER, MEDICARE ==
--- NOTE | ~2016-10-28 | OR ---
Unit #: [id number] #: [id number] Patient: LUDWIG RANDALL JR [id number] [address] [place], [place] [address] [id number] O MR#: [id number] NAME: LUDWIG RANDALL ROOM: Date of Procedure: 10/28/2016 Admission Date: 10/28/2016 Surgeon: Roel Maldonado M.D. : 1965 Attending Physician: Roel Maldonado M.D. Referring Physician: Roel Maldonado M.D. 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 PROCEDURE PERFORMED Flexible fiberoptic bronchoscopy with biopsy removal of some of the necrotic mucosal material at the takeoff of the right middle and right lower lobes and with brachytherapy catheter being inserted out into the right middle lobe bronchus. ANESTHESIA MAC. ESTIMATED BLOOD LOSS Minimal. COMPLICATIONS None. DESCRIPTION OF PROCEDURE The patient was taken to the endoscopy suite and placed in a supine position on the fluoroscopy table. After appropriate monitoring lines had been placed, IV sedation was given per the Anesthesia Department. Anesthesia of the right naris was obtained using Xylocaine jelly. Flexible bronchoscope was then passed per the right naris into the posterior pharynx. The vocal cords were visualized and found to be without lesions and both moved well with phonation. Anesthesia of the cords was obtained by injecting 2% Xylocaine per the scope. The scope was passed through the cords into the trachea. Xylocaine 1% was injected per the scope to anesthetize the tracheobronchial tree. The entire length of trachea was visualized and found to be normal. The john was sharp. The left mainstem bronchus was normal. The left upper lobe and left lower lobe were both examined to their subsegmental bronchi level and found to be within normal limits. The right upper lobe was examined to its subsegmental bronchi level and also found to be within normal limits. The bronchus intermedius was then examined. Distally in the bronchus intermedius, there was noted to be some light tannish to white necrotic mucosal debris present. It should be stated that the patient has had 2 previous brachytherapy treatments for his squamous cell carcinoma. The necrotic mucosal debris was causing some narrowing of the takeoff of both Unit #: [id number] #: [id number] Patient: LUDWIG RANDALL JR J the right middle and right lower lobes. Photos were taken. Biopsy forceps were used to remove some of this necrotic debris. Although, there was narrowing of both the right lower lobe and right middle lobe, the narrowing of the right middle lobe bronchus appeared to be more severe. It was therefore elected to direct the brachytherapy catheter out the right middle lobe bronchus at this time and therefore, be able to give brachytherapy for this bronchus as well as the distal bronchus intermedius. Under fluoroscopic control, the brachytherapy catheter was passed out into the right middle lobe. The bronchoscope was then removed keeping the brachytherapy catheter in the same position. After the bronchus scope had been completely removed, the brachytherapy catheter was secured in place to the nose. Estimated blood loss in the procedure was minimal. The patient tolerated the procedure well. He was then transported to the radiation center for brachytherapy. Plans are for him to be discharged home from the Radiation Center. Dictated by... Roel Maldonado M.D. MARLON/prisca TD: 10/28/2016 23:13 JOB #: [id number] OPERATIVE REPORT Page 1 of 1 X Roel Maldonado MD X PROCEDURE OPERATIVE NOTE
--- NOTE | ~2016-10-28 | OR ---
Unit #: [id number] #: [id number] Patient: LUDWIG PENALOZA JR [id number] [facility] [address] [facility]. [place], [place] [address] [id number] O MR#: [id number] NAME: LUDWIG PENALOZA ROOM: Date of Procedure: 10/28/2016 Admission Date: 10/28/2016 Surgeon: Deep Murcia M.D. : 1965 Attending Physician: Roel Maldonado M.D. Referring Physician: Roel Maldonado M.D. Primary Care Physician: Kevin Prince Aprn PROCEDURE OPERATIVE NOTE PREOPERATIVE DIAGNOSIS Stage 2 [id number] lung carcinoma of the right mainstem and right middle lobe bronchus. POSTOPERATIVE DIAGNOSIS Stage 2 [id number] lung carcinoma of the right mainstem and right middle lobe bronchus. PROCEDURE PERFORMED Fiberoptic bronchoscopy with placement of HDR catheter and subsequent HDR brachytherapy. INDICATION FOR PROCEDURE Mr. Penaloza is a 51-year-old gentleman who suffers from chronic obesity, MS and pneumonia. He was found to have squamous cell carcinoma involving the right hilum. He had obstruction with atelectasis of the right lower lobe. He has received chemotherapy from Dr. Leslie Figueroa. In addition, the patient has received endobronchial therapy including endobronchial ablation with Dr. Maldonado and HDR therapy on two occasions. He has received 500 cGy to a depth of 1 cm on the initial occasion, followed by 500 cGy to a depth of 5 mm on the second such procedure. The first procedure was 09/22/2016. The patient has done well clinically. Much of his right lower lobe obstruction has gone away and the lobe is reinflated on CT imaging. The patient is now seen for reevaluation and the third of three planned HDR procedures. PROCEDURE The patient was seen in the endoscopy suite at [facility]. He had findings demonstrating normal cord movement. The left lung was unremarkable. Examination of the right lung demonstrated significant response as compared to previous evaluations. The patient has developed white exophytic exudative material within the bronchus, specifically bronchus intermedius right lower and middle lobe bronchi. Some of this is removed with large biopsy forceps. There was some mild oozing, but overall minimal bleeding. There was no need for epinephrine. The patient received lidocaine prior to procedure, both above and below the cords. The patient had a single HDR catheter placed in the bronchus intermedius and extending into the right middle lobe. This was done under fluoroscopic guidance. The patient then received IV Fentanyl in addition to propofol. He was recovered in the recovery room and subsequently transported to [facility]. The patient had CT scans performed. Treatment volumes delineated. He ultimately received a total of 500 cGy at a depth of 0.5 cm from the applicator surface to an active Unit #: [id number] #: [id number] Patient: LUDWIG PENALOZA JR length of approximately 5 cm. This was done with a NeuroVistaron HDR unit with an Iridium 192 source. This was performed without complication. The patient was fully recovered, awake and alert, without bleeding at the time of completion. The catheter was removed and the patient was discharged home in the care of his . Plans are to continue external beam radiotherapy. The patient has received to date a total of 18 of approximately 36 planned external beam treatments. COMPLICATIONS None. ESTIMATED BLOOD LOSS 3 mL. Dictated by... Deep Murcia M.D. LILY/roxie TD: 10/28/2016 10:34 JOB #: [id number] CC: Cici Salvador Aprn Roy Glenn Bowling, M.D. PROCEDURE OPERATIVE NOTE Page 1 of 1 X Deep Murcia MD X PROCEDURE OPERATIVE NOTE
== END | disposition home or self-care (01) ==
LOC: COPS 07:29
DX: C34.01 Malignant neoplasm of right main bronchus (principal); C34.2 Malignant neoplasm of middle lobe, bronchus or lung; J45.909 Unspecified asthma, uncomplicated; G35 Multiple sclerosis; E66.01 Morbid (severe) obesity due to excess calories; F17.210 Nicotine dependence, cigarettes, uncomplicated; Z87.01 Personal history of pneumonia (recurrent); Z88.1 Allergy status to other antibiotic agents; Z79.891 Long term (current) use of opiate analgesic; Z79.899 Other long term (current) drug therapy; Z98.84 Bariatric surgery status; Z90.49 Acquired absence of other specified parts of digestive tract; Z98.890 Other specified postprocedural states
CPT/HCPCS: 76001; 87070; 87205; J0171; J1642; J2250; J3010

== ENCOUNTER → 2016-11-03 | Outpatient (CLI) | payer OTHER, MEDICARE ==
[2016-11-03 10:18] LABS: BASOPHIL% 0.5 % (0-2.5); EOSINOPHIL% 0.6 % (0.0-7.0); HEMATOCRIT 30.1 % (38.0-50.0); LYMPHOCYTE# 0.6 X10e3 (1.0-3.5); LYMPHOCYTE% 8.1 % (17.0-45.0); MEAN CELL VOLUME 86.4 FL (83-96); MEAN CORPUSCULAR HEMOGLOBIN 28.9 PG (28-34); MEAN CORPUSCULAR HGB CONC 33.4 g/dL (30-36); MEAN PLATELET VOLUME 6.6 FL (6.5-11.5); MONOCYTE# 0.6 X10e3 (0-1.0); MONOCYTE% 8.3 % (3.0-12.0); NEUTROPHIL# 5.7 X10e3 (1.5-7.1); NEUTROPHIL% 82.5 % (40-75); PLATELET COUNT 356 X10e3 (140-420); RED BLOOD COUNT 3.48 X10e (3.90-5.60); RED CELL DISTRIBUTION WIDTH 17.9 % (11.0-15.5); WHITE BLOOD COUNT 6.9 X10e3 (4.0-10.5)
[2016-11-03 10:19] LABS: DIFF IND NO
[2016-11-03 11:00] LABS: ALBUMIN SERUM 3.2 g/dL (3.5-5.0); BILIRUBIN,TOTAL 0.7 mg/dL (0.2-2.0); BUN/CREATININE RATIO 11.53; CREATININE SERUM 1.3 mg/dL (0.6-1.4); GLOM FILT RATE Estimated 63.6 mL/min (>60); POTASSIUM 4.2 mmol/L (3.5-5.1); PROTEIN TOTAL SERUM 8.1 g/dL (6.0-8.3)
== END | disposition home or self-care (01) ==
LOC: CLAB 09:38
PROVIDERS: Internal Medicine Hematology
DX: C34.81 Malignant neoplasm of overlapping sites of right bronchus and lung (principal)
CPT/HCPCS: 36415; 80053; 85025

== ENCOUNTER 2016-11-19 16:01 | Inpatient (IN) | payer OTHER, MEDICARE ==
--- NOTE | ~2016-11-19 | CO ---
Unit #: [id number] #: [id number] Patient: LUDWIG PENALOZA JR [id number] [address] [place], [place] [address] [id number] I MR#: [id number] NAME: LUDWIG PENALOZA JR ROOM: [facility] Age: 51 Sex: M Admission Date: 11/19/2016 : 1965 Attending Physician: Jalen Musa M.D. Primary Care Physician: Kevin Prince Aprn Consultation Date: 11/20/2016 CONSULTATION REPORT HISTORY OF PRESENT ILLNESS Mr. Penaloza is a 51-year-old obese white male, who had a lap band done 6 to 7 years ago, noted some black stools and maroon for the last 2 to 3 days. He had none yesterday. He was noted to have anemia. Hemoglobin was 7.7. Blood was given. He does complain of indigestion. 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 The patient's abdomen is totally soft and benign, nontender, no peritoneal signs. Had a long discussion with the patient and I talked with Dr. Robert, we will go ahead and do upper endoscopy. Risks had been explained to the patient, and he understands. Dictated by... James Barrientos M.D. VERONICA/prisca TD: 11/20/2016 22:43 JOB #: [id number] CONSULTATION REPORT Page 1 of 1 X James Barrientos MD X CONSULTATION REPORT
--- NOTE | ~2016-11-19 | DS ---
Unit #: [id number] #: [id number] Patient: LUDWIG RANDALL JR [id number] [place] [address] [facility]. [place], [place] [address] [id number] MR#: [id number] NAME: LUDWIG RANDALL JR ROOM: 301 Age: 51 Sex: M Admission Date: 11/19/2016 : 1965 Discharge Date: 11/23/2016 Attending Physician: Jalen Musa M.D. Primary Care Physician: Kevin Prince Aprn DISCHARGE SUMMARY REASON FOR ADMISSION Multiple falls. HISTORY OF PRESENT ILLNESS/HOSPITAL COURSE The patient is a very pleasant 51-year-old male with a recent diagnosis of non-squamous cell lung carcinoma status post chemotherapy and radiation, followed by Dr. Figueroa of Hematology/Oncology associates, who presented secondary to dizziness, black colored stools, bright red blood per rectum as well as frequent falls at home. He was noted to be fecal occult positive in the emergency room and his hemoglobin was 7.7. He was admitted secondary to above. He was admitted secondary to heme positive stool. Consultation was placed to [facility]. Dr. Robert and associates saw and evaluated patient. Ultimately, he underwent upper GI endoscopy which did reveal mild inflammatory changes but otherwise essentially normal. The patient stated that he expressed deep concern in regards to bright red blood per rectum and, therefore, patient underwent colonoscopy yesterday on 11/22/2016. Although the prep was not ideal, it did not show any acute process which was present. At this point in time, the patient is clinically stable for discharge. Dr. Figueroa of oncology services was also consulted this hospital course. The patient did receive IV iron as well as routine and supportive medications and he appears clinically stable for discharge from our standpoint as well. He did undergo a CT head, of note noncontrast, which was negative for acute process. Iron studies were also done this hospital admission. He will be discharged home later this morning with the understanding of follow up per his routine radiation therapy as well as with Dr. Figueroa of oncology services for ongoing care. FINAL DISCHARGE DIAGNOSES 1. Heme positive stool/anemia, likely secondary to ongoing medical management of his non-small cell lung carcinoma. 2. Bright red blood per rectum, likely secondary to internal hemorrhoids. 3. Mild gastritis. 4. Prior history of multiple sclerosis. FINAL DISCHARGE MEDICATIONS 1. Protonix 40 mg p.o. b.i.d. Unit #: [id number] #: [id number] Patient: LUDWIG RANDALL JR 2. Percocet 10, one tablet p.o. q.6 p.r.n. 3. Flexeril 10 mg p.o. b.i.d. 4. P.r.n. MiraLAX 17 g p.o. daily. 5. Colace 100 mg p.o. daily. DISCHARGE CONDITION Stable. DISCHARGE DISPOSITION Home. FOLLOWUP Follow up with Dr. Figueroa of oncology services for ongoing care. Dictated by... Cici Mendez/aaliyah TD: 11/23/2016 10:41 JOB #: [id number] DISCHARGE SUMMARY Page 1 of 1 X Jalen Musa MD X DISCHARGE SUMMARY
--- NOTE | ~2016-11-19 | EKG ---
PATIENT: LUDWIG RANDALL UNIT #: [id number] Ventricular Rate: 114 BPM Atrial Rate: 114 BPM P-R Interval: 156 ms QRS Duration: 148 ms Q-T Interval: 356 ms QTC Calculation(Bezet): 490 ms P Madison: 44 degrees Calculated R Madison: 53 degrees Calculated T Madison: 20 degrees Diagnosis Line: Sinus tachycardia Diagnosis Line: Right bundle branch block Diagnosis Line: Abnormal ECG Diagnosis Line: No previous ECGs available Diagnosis Line: Confirmed by PRESLEY CARBAJAL MD ([id number]) on Diagnosis Line: 11/21/2016 10:42:32 AM INTERPRETING MD: MARGARET
--- NOTE | ~2016-11-19 | CO ---
Unit #: [id number] #: [id number] Patient: LUDWIG RANDALL JR [id number] [address] [place], [place] [address] [id number] MR#: [id number] NAME: LUDWIG RANDALL JR ROOM: 301 Age: 51 Sex: M Admission Date: 11/19/2016 : 1965 Attending Physician: Jalen Musa M.D. Primary Care Physician: Kevin Prince Aprn CONSULTATION REPORT REVISED REPORT CHIEF COMPLAINT Four cm right hilar mass, is squamous cell carcinoma, T4, N0, M0, obstruction, stage III, HDR, chemoradiation, GI bleed, anemia, and syncope. HISTORY OF PRESENT ILLNESS This is a 51-year-old male, who came to the hospital on June 12, 2016 with the chest pain and shortness of breath. CT of the chest showed right middle lobe infiltrate, there was no obvious mass; however, the patient came again and the CT of the chest in August 04, 2016, that showed 3.9 x 3.7 right hilar mass, in the middle lobe, there was atelectasis and obstruction. The lesion is now T4, N0, M0, PET scan from the mass, SUV was 17, patient had bronchoscopy, pathologist says not a small cell lung cancer, it is squamous cell. MRI of the brain was normal. He was first evaluated for resection. He developed obstruction requiring chemoradiation and HDR. He is receiving Carbo/taxol and radiation. He has received three cycles of chemo. He is going to finish radiation next week. The patient has on and off lower GI bleed for a couple of weeks. The patient, yesterday, developed syncope, almost fell down. His CBC showed WBC 10.9, hemoglobin 7.7, MCV 88, and platelets 92. He has received two units of PRVCs feeling better. His creatinine is 1.1 and LFTs are normal. REVIEW OF SYSTEMS CONSTITUTIONAL: No fever, no chills, no sweats, no weight loss. EYES: No visual symptoms. EARS, NOSE AND THROAT: There is no runny nose or sore throat or difficulty hearing. CARDIOVASCULAR: No chest pain. No shortness of breath. No palpitations. No orthopnea. No PND. RESPIRATORY: No cough. No wheezing. No hemoptysis. GASTROINTESTINAL: No nausea, vomiting, diarrhea, constipation, hematochezia or melena. GENITOURINARY: No urinary frequency, hesitancy or urgency. No blood in the urine. MUSCULOSKELETAL: No muscle or joint pain. NEUROLOGIC: No headache. No numbness or tingling. No weakness. No seizure. PSYCHIATRIC: No anxiety, depression or mood disturbance. ENDOCRINE: No excessive urination or thirst. Unit #: [id number] #: [id number] Patient: LUDWIG RANDALL JR DERMATOLOGIC: No rash or change in the skin. ALLERGIC/IMMUNOLOGIC: No symptoms. HEMATOLOGIC/LYMPHATIC: Denies any symptoms. PAST MEDICAL HISTORY Includes: 1. Newly diagnosed non-small cell lung cancer, stage III, receiving chemo and radiation for obstruction. 2. MS since 2005, taking Gilenya. ALLERGIES Clindamycin. SOCIAL HISTORY The patient admits smoking one pack per day started at the age of 15, denies alcohol use. He is on disability. SURGICAL HISTORY Tonsillectomy, cholecystectomy, and lap banding, he used to weigh 400 pounds, now weighs about 230 pounds. FAMILY HISTORY Negative for cancer. CURRENT MEDICATIONS Include: 1. Protonix 2. Percocet PHYSICAL EXAMINATION GENERAL: Patient is comfortable. ECOG is 0. The patient is pleasant. VITAL SIGNS: Blood pressure 111/80, temperature 99.5, pulse 104, respiratory rate 18. O2 saturation 98%. HEENT: Moist mucosa. Pupils equally reactive to light. Extraocular muscles intact. Sclerae anicteric. No obvious bleeding from nasal mucosa or oral mucosa. Scalp normal. Hearing normal. NECK: No JVD. No lymphadenopathy. LYMPHATIC/HEMATOLOGIC: There is no palpable adenopathy in the neck, axilla or inguinal area. CARDIOVASCULAR: S1, S2. Regular rate and rhythm. No S3 or S4. RESPIRATORY: Chest symmetrical, normal. Clear to auscultation bilaterally. No wheezes, no rales, no rhonchi. No dullness to percussion. ABDOMEN/GASTROINTESTINAL: Abdomen is soft, nontender, nondistended. No hepatosplenomegaly. EXTREMITIES: There is no clubbing, no cyanosis, no edema. No varicose veins. NEUROLOGICAL: Patient is alert, awake and oriented x3. Cranial nerves II-XII are intact. Sensory grossly intact. Motor is 4/5 in all four extremities. Gait is normal. Station is normal. Language is normal. Memory is normal. DTRs +2 in all four extremities. MUSCULOSKELETAL: No joint swelling. No bony tenderness. No muscle tenderness. SKIN: No petechiae, no rash, no ecchymosis. PSYCHIATRIC: No anxiety. No delusions or hallucinations. There is no agitation. Eye contact is normal. Affect is appropriate. There is no flight of ideas. Unit #: [id number] #: [id number] Patient: LUDWIG RANDALL JR DIAGNOSTIC STUDIES Labs as mentioned above. CT of the head, 11/19/2016 is normal. Chest x-ray, significant improvement in the appearance of the chest since the most recent study with significant decrease in the size of the right-sided pleural effusion. ASSESSMENT/PLAN 1. This is a 51-year-old male, with non-small cell lung cancer, it is squamous cell, it is T4 N0 M0, stage III causing obstruction. He was suddenly hypoxic, he received HDR, he is receiving chemoradiation, chemotherapy includes Carbo/taxol. He is going to receive one more cycle. He is completing radiation next week. We will alert him again for possible dissection. 2. Anemia, his is a combination of chemoradiation and lower GI bleed. He has received two units of PRBCs. I will give him intravenous folic acid, B12 to stimulate the bone marrow. 3. Pain, I will give him Percocet. 4. Cough, I will give him Tessalon Perles. Dictated by... Cici Parra/bozena TD: 11/21/2016 08:33 JOB #: [id number] CC: Deep Murcia M.D. CONSULTATION REPORT Page 1 of 1 X Gonzalo Figueroa MD CONSULTATION REPORT
--- NOTE | ~2016-11-19 | HP ---
Unit #: [id number] #: [id number] Patient: LUDWIG RANDALL JR [id number] [address] [place], [place] [address] [id number] MR#: [id number] NAME: LUDWIG RANDALL ROOM: Age: 51 Sex: M Admission Date: 11/19/2016 : 1965 Attending Physician: Von Cobb M.D. Primary Care Physician: Kevin Prince Aprn HISTORY AND PHYSICAL CHIEF COMPLAINT The multiple falls. HISTORY OF PRESENT ILLNESS The patient is a 51-year-old male with a history of a recent diagnosis of non-squamous cell lung cancer of the right side status post chemotherapy and radiation, presented to the emergency room with the near-syncopal episode. The patient was at the radiation therapy and had two near-syncopal episodes. The patient complains of the dizziness associated with black-colored stools for the last two days. The patient was found to be positive for the fecal occult blood test and hemoglobin is 7.7 and he is being admitted for the above reasons. Denies any chest pain, nausea or vomiting. PAST MEDICAL HISTORY History of MS, stage III non-small lung cancer. PAST SURGICAL HISTORY History of a lap band and colonoscopy, cholecystectomy, tonsillectomy, left knee bursa sac removal, hernia repair and cardiac cath x2. SOCIAL HISTORY The patient has been smoking cigarettes for 30 years and quit a few months ago and no history of alcohol or any illicit drug abuse. FAMILY HISTORY Negative for cancer. HOME MEDICATIONS Patient is on a GI cocktail, Flexeril, Percocet, Aleve, MiraLAX, stool softener. ALLERGIES Clindamycin. REVIEW OF SYMPTOMS Fourteen-point review of symptoms performed and only pertinent positive findings as described above, remaining are negative. PHYSICAL EXAMINATION GENERAL APPEARANCE: On examination the patient is lying on a bed not in acute distress. VITAL SIGNS: Temperature 98.2, pulse 112, respiratory rate 16, blood Unit #: [id number] #: [id number] Patient: LUDWIG RANDALL JR pressure 120/86, sating 100% at room air. HEENT: Head atraumatic/normocephalic. Pupils equal, round and reacting to light and accommodation. Positive for the anemia. Positive for pallor. NECK: Supple. LUNGS: Decreased air entry at the bases. HEART: Regular rhythm and tachycardic. ABDOMEN: Soft, positive bowel sounds. EXTREMITIES: No cyanosis. No clubbing. NEUROLOGIC: Awake, alert, oriented. No gross focal motor deficit. DIAGNOSTIC STUDIES LABORATORY DATA: Glucose 103, troponin less than 0.05, INR is 1, WBC 10.9, hemoglobin 7.7, hematocrit 22.9, platelets 91, sodium 133, potassium 3.9, chloride 98, bicarb 29, glucose 107, BUN 19, creatinine 1.1, alkaline phosphatase 153, AST 17, ALT 12. CARDIOVASCULAR: EKG shows sinus tachycardia at a rate of 114 and right bundle branch block. IMAGING: Patient had a CT of the head that is negative. A chest x-ray is negative. ASSESSMENT 1. The near-syncopal episode. 2. Gastrointestinal bleed. 3. Anemia. 4. Lung cancer, status post chemotherapy and radiation. PLAN Plan to admit the patient to the inpatient with the telemetry. Continue with the Protonix drip. Will have the [facility] consult for EGD as the patient follows with [facility] for the lap band and had the scopes in the past. Type and cross two units of packed red blood cells and hold the nonsteroidal antiinflammatory drugs and repeat the labs again in the morning and further recommendations will follow. Dictated by Cici Gomez/geraldo TD: 11/19/2016 20:28 JOB #: [id number] Unit #: [id number] #: [id number] Patient: LUDWIG RANDALL JR HISTORY AND PHYSICAL Page 1 of 1 X KEVIN MEDINA MD HISTORY AND PHYSICAL
--- NOTE | ~2016-11-19 | BMI ---
[facility] Nutrition Therapy DATE: 11/20/16 Patient: LUDWIG RANDLAL Physician: CANDE Address: [address] [place] [address] DRIVE Room/Bed: [address] [place] [address], Zip: [place] [address] Admit Date: 11/19/16 Date of : [birth year] Height: 5 7 Weight: 275 124.8 HIGH BMI NOTE: DX: 51 Y.O. MALE ADMITTED FOR NEAR SYNCOPE WITH GI BLEED ANTHROPOMETRICS: 5'7", WT: 275# (125 KG), BMI: 43.1 DIET: NPO RECOMMENDATIONS: 1. ONCE MEDICALLY FEASIBLE, ADVANCE DIET INDICATED TO HEALTHY HEART TO PROMOTE GRADUAL WEIGHT LOSS TOWARDS HEALTHY BMI (19.0-25.0) OR +/-10%IBW RD WILL F/U PER PROTOCOL Respectfully, STUART HE MS, RD, LD [employer] [facility] cc: client file
--- NOTE | ~2016-11-19 | OR ---
Unit #: [id number] #: [id number] Patient: LUDWIG RANDALL JR [id number] [place] [id number] [facility] [place] [facility]. [place], [place] [address] [id number] I MR#: [id number] NAME: LUDWIG RANDALL JR ROOM: [facility] Date of Procedure: 11/20/2016 Admission Date: 11/19/2016 Surgeon: Sanjiv Robert M.D. : 1965 Attending Physician: Jalen Musa M.D. Primary Care Physician: Kevin Prince Aprn OPERATIVE REPORT PREOPERATIVE DIAGNOSES Melanotic stools, anemia with hemoglobin of 7.7. POSTOPERATIVE DIAGNOSIS Normal upper endoscopy. PROCEDURE PERFORMED Esophagogastroduodenoscopy to third portion of the duodenum. ANESTHESIA Monitored anesthesia. INDICATIONS FOR PROCEDURE A 51-year-old gentleman with a history of a lap-band in the past. He is being treated for lung cancer with chemotherapy and radiation. He was admitted to the hospital with complaints of melanotic and maroon stools, profound anemia, and dysphagia. EGD was requested for further evaluation. DESCRIPTION OF PROCEDURE The patient was transported from his hospital room to the endoscopy suite and after appropriate monitoring and positioning, a bite block was placed and he was sedated by the anesthesiologist. The endoscope was passed through the oral cavity into esophagus and under direct vision, we passed through the esophagus into the stomach, insufflated the stomach, identified the pylorus and passed down to the third portion of the duodenum. Duodenum, duodenal bulb, and all mucosal surfaces of the stomach were normal. No blood was seen in the upper GI tract. In retroflexing the scope above the incisura, the upper fundus and cardia appeared normal. The GE junction was well demarcated at 40 cm. No esophagitis, no varices, no ulcers were seen in the esophagus. There was no evidence of [place] mucosa. When I got back to the area of the larynx, I could visualize the larynx and there was no blood in the larynx. The patient tolerated the procedure well and was transported back to his hospital room in stable condition. Dictated by... Sanjiv Robert M.D. RS/prisca TD: 11/20/2016 15:08 Unit #: [id number] #: [id number] Patient: LUDWIG RANDALL JR JOB #: [id number] OPERATIVE REPORT Page 1 of 1 X Sanjiv Robert MD PROCEDURE OPERATIVE NOTE
--- NOTE | ~2016-11-19 | CT71 ---
[facility] A Service of [facility] & [facility] RADIOLOGY TEXT RESULTS PATIENT: LUDWIG RANDALL JR LOCATION: [facility] 301- : [birth year] UNIT #: [id number] AGE: [address]: Jalen Musa MD SEX: M ORDER DR: [id number] [facility] [address]. [place], [place] [address] [id number] I MR#: [id number] Acc #: [id number] NAME: LUDWIG RANDALL JR : 1965 SEX: M STUDY DATE/TIME: 11/19/2016 17:33 UNIT: [address] ROOM: [facility] STUDY DESCRIPTION: CT Head Wo Contrast Attending Physician: Juventino De Paz M.D. Ordering Physician: Von Cobb M.D. Primary Care Physician: Kevin Prince Aprn MEDICAL IMAGING REPORT This report is preliminary unless electronic signature is present EXAM Head CT without contrast 11/19/2016 HISTORY Syncopal episodes for 2 days twice today within 30 minutes. Multiple falls over the past [address] exam was performed with one or more of the following radiation dose reduction techniques: automatic control, adjustment of mA and/or kV according to patient size, and iterative reconstruction. FINDINGS Axial images of the brain obtained without contrast show generalized atrophy. There is no evidence of mass effect, hemorrhage, or edema and no midline shift is seen. No acute changes are noted. IMPRESSION Atrophy; otherwise, normal CT of the brain. Dictated by... Israel Rosa M.D. THIS IS AN ELECTRONICALLY VERIFIED REPORT Israel Rosa M.D. at 11/22/2016 8:26 AM MARYA/konrad TD: 11/19/2016 22:59 JOB #: [id number] MEDICAL IMAGING REPORT Page 1 of 1 COPY
--- NOTE | ~2016-11-19 | OR ---
Unit #: [id number] #: [id number] Patient: LUDWIG RANDALL JR [id number] [address] [address] [id number] I MR#: [id number] NAME: LUDWIG RANDALL JR ROOM: [facility] Date of Procedure: 11/22/2016 Admission Date: 11/19/2016 Surgeon: Regis Cotto M.D. : 1965 Attending Physician: Jalen Musa M.D. Primary Care Physician: Kevin Prince Aprn OPERATIVE REPORT PREOPERATIVE DIAGNOSES 1. Anemia. 2. Rectal bleeding. POSTOPERATIVE DIAGNOSES 1. Anemia. 2. Rectal bleeding. PROCEDURE PERFORMED Colonoscopy to cecum. ANESTHESIA Monitored anesthesia care. FINDINGS The patient had normal colon except for moderate internal hemorrhoids. SPECIMENS None. COMPLICATIONS None apparent. CONDITION The patient tolerated the procedure well. INDICATIONS FOR PROCEDURE The patient is a 51-year-old white male, who has a history of lung cancer. He presented with anemia and maroon-colored stools. He had upper endoscopy performed 2 days ago, which was normal. He presents at this time for colonoscopy. DESCRIPTION OF PROCEDURE After informed consent, the patient was brought to the endoscopy suite and after adequate monitored anesthesia care, had the colonoscope placed through the anus and advanced to the level of the cecum without difficulty with the lumen always in view. The cecum was normal as was the ileocecal valve. The ascending colon was normal as was the hepatic flexure, transverse colon, splenic flexure, descending colon, sigmoid colon, and rectum. On retroflexing in the rectum to the anorectal junction, the patient was found to have some moderate internal hemorrhoids. The scope was removed without difficulty. The patient tolerated the procedure well Unit #: [id number] #: [id number] Patient: LUDWIG RANDALL JR and went from the endoscopy suite to the recovery area in stable condition. RECOMMENDATIONS High-fiber diet, lots of liquids. Resume preop orders and medications. Dictated by... Cici Chavez/prisca TD: 11/23/2016 00:08 JOB #: [id number] CC: Gonzalo Figueroa M.D. [facility] OPERATIVE REPORT Page 1 of 1 X Regis Cotto MD PROCEDURE OPERATIVE NOTE
--- NOTE | ~2016-11-19 | CR72 ---
[facility] A Service of [facility] RADIOLOGY TEXT RESULTS PATIENT: LUDWIG RANDALL JR LOCATION: [facility] : [birth year] UNIT #: [id number] AGE: [address]: Jalen Musa MD SEX: M ORDER DR: [id number] [facility] [address] [facility]. [place], [place] [address] [id number] I MR#: [id number] Acc #: [id number] NAME: LUDWIG RANDALL JR : 1965 SEX: M STUDY DATE/TIME: 11/19/2016 16:57 UNIT: [address] ROOM: [address] [place] [address] DESCRIPTION: CR Chest Single View Portable Attending Physician: Juventino De Paz M.D. Ordering Physician: Von Cobb M.D. Primary Care Physician: Kevin Prince Aprn MEDICAL IMAGING REPORT This report is preliminary unless electronic signature is present EXAM Portable chest. INDICATIONS Cough, congestion for 2 weeks. History of lung cancer. COMPARISON Comparison with 09/27/16. FINDINGS Improvement in the appearance of the chest. Significant interval decrease in pleural fluid on the right with trace of pleural fluid on this study. There is some volume loss noted in the right lung with some right basilar atelectasis. The left lung is clear. The heart size is stable. There is a left-sided PICC line in place. IMPRESSION Significant interval improvement in the appearance of the chest since the most recent study with significant interval decrease in size of right-side pleural effusion. Dictated by... Akbar Mckeon M.D. THIS IS AN ELECTRONICALLY VERIFIED REPORT Akbar Mckeon M.D. at 11/21/2016 10:32 AM BARB/néstor TD: 11/19/2016 22:22 JOB #: [id number] [facility] A Service of [facility] RADIOLOGY TEXT RESULTS PATIENT: LUDWIG RANDALL JR LOCATION: [facility] : 67 UNIT #: [id number] AGE: [address]: Jalen Musa MD SEX: M ORDER DR: MEDICAL IMAGING REPORT Page 1 of 1 COPY
[~2016-11-19 16:01] MED LIST changes: -DAZIDOX10 MG PO; -DILAUDID8 MG PO; -DOCUSATE SODIU100 MG PO; -FERROUS GLUCON324 M2 PO; -GI COCKTAIL; -K-DUR20 ME1 PO; -LOPRESSOR PO; -MAG-OX 400400 M1 PO; -MIRALAX17 GM DOB; -PERCOCET10 PO; -PROTONIX PO
[2016-11-19 17:55] LABS: BASOPHIL% 0.2 % (0-2.5); EOSINOPHIL% 0.1 % (0.0-7.0); HEMATOCRIT 22.9 % (38.0-50.0); HEMOGLOBIN 7.7 gm/dL (13.0-16.0); LYMPHOCYTE# 0.4 X10e3 (1.0-3.5); LYMPHOCYTE% 4.1 % (17.0-45.0); MEAN CELL VOLUME 88.8 FL (83-96); MEAN CORPUSCULAR HEMOGLOBIN 29.9 PG (28-34); MEAN CORPUSCULAR HGB CONC 33.7 g/dL (30-36); MEAN PLATELET VOLUME 7.1 FL (6.5-11.5); MONOCYTE# 0.8 X10e3 (0-1.0); MONOCYTE% 7.6 % (3.0-12.0); NEUTROPHIL# 9.6 X10e3 (1.5-7.1); PLATELET COUNT 92 X10e3 (140-420); RED BLOOD COUNT 2.58 X10e (3.90-5.60); RED CELL DISTRIBUTION WIDTH 20.8 % (11.0-15.5); WHITE BLOOD COUNT 10.9 X10e3 (4.0-10.5)
[2016-11-19 17:58] LABS: POC - CKMB 1.9 ng/mL (0.0-7.9); POC - TROPONIN <0.05 ng/mL (<=0.05)
[2016-11-19 18:02] LABS: DIFF IND YES
[2016-11-19 18:06] LABS: PROTHROMBIN TIME (PATIENT) 11.1 SECONDS (10.0-11.7)
[2016-11-19 18:11] LABS: ALBUMIN SERUM 3.1 g/dL (3.5-5.0); ALKALINE PHOSPHATASE 153 U/L (32-92); ALT (SGPT) 12 U/L (10-40); AST (SGOT) 17 U/L (10-42); BILIRUBIN,TOTAL 0.7 mg/dL (0.2-2.0); BLOOD UREA NITROGEN 19 mg/dL (9-23); BUN/CREATININE RATIO 17.27; CALCIUM SERUM 12.8 mg/dL (8.4-10.2); CARBON DIOXIDE 29 mmol/L (22-31); CHLORIDE 98 mmol/L (100-111); CREATININE SERUM 1.1 mg/dL (0.6-1.4); GLOM FILT RATE Estimated 77.9 mL/min (>60); GLUCOSE FASTING 107 mg/dL (70-110); POTASSIUM 3.9 mmol/L (3.5-5.1); PROTEIN TOTAL SERUM 8.1 g/dL (6.0-8.3); SODIUM 133 mmol/L (135-145)
[2016-11-19 18:15] LABS: ANISOCYTOSIS MOD; BILIRUBIN, DIRECT <0.1 mg/dL (0.0-0.2); BILIRUBIN,INDIRECT 0.6 mg/dL (0.0-0.9); PLATELET ESTIMATE DECREASED (NORMAL)
[2016-11-20] MEDS ORDERED: PERCOCET10 PO (02:35)
[2016-11-20] MEDS ORDERED: FLEXERIL10 MG PO (02:35)
[2016-11-20] MEDS ORDERED: MIRALAX17 GM DOB (02:36)
[2016-11-20] MEDS ORDERED: DOCUSATE SODIU100 MG PO (02:37)
[2016-11-20] MEDS ORDERED: ALEVE220 M1 PO (02:40)
[2016-11-20] MEDS ORDERED: GI COCKTAIL (02:44)
[2016-11-20 10:21] LABS: HEMOGLOBIN 8.7 gm/dL (13.0-16.0)
[2016-11-20 12:21] LABS: BASOPHIL# 0.1 X10e3 (0-0.3); BASOPHIL% 0.7 % (0-2.5); EOSINOPHIL% 0.1 % (0.0-7.0); HEMATOCRIT 26.3 % (38.0-50.0); HEMOGLOBIN 8.9 gm/dL (13.0-16.0); LYMPHOCYTE# 0.3 X10e3 (1.0-3.5); LYMPHOCYTE% 4.2 % (17.0-45.0); MEAN CELL VOLUME 88.6 FL (83-96); MEAN CORPUSCULAR HEMOGLOBIN 29.9 PG (28-34); MEAN CORPUSCULAR HGB CONC 33.7 g/dL (30-36); MEAN PLATELET VOLUME 7.1 FL (6.5-11.5); MONOCYTE# 0.4 X10e3 (0-1.0); MONOCYTE% 5.2 % (3.0-12.0); NEUTROPHIL# 7.4 X10e3 (1.5-7.1); NEUTROPHIL% 89.8 % (40-75); PLATELET COUNT 80 X10e3 (140-420); RED BLOOD COUNT 2.97 X10e (3.90-5.60); RED CELL DISTRIBUTION WIDTH 19.2 % (11.0-15.5); WHITE BLOOD COUNT 8.3 X10e3 (4.0-10.5)
[2016-11-20 12:23] LABS: DIFF IND NO
[2016-11-20 12:44] LABS: BUN/CREATININE RATIO 13.63; CALCIUM SERUM 12.2 mg/dL (8.4-10.2); CREATININE SERUM 1.1 mg/dL (0.6-1.4); GLOM FILT RATE Estimated 77.9 mL/min (>60); POTASSIUM 3.5 mmol/L (3.5-5.1)
[2016-11-20 14:11] LABS: FERRITIN 1350 ng/mL (24-336)
[2016-11-20 17:00] LABS: IRON SERUM 75 ug/dL (45-182); TOTAL IRON BINDING CAPACITY 237 ug/dL (252-460); TRANSFERRIN 169 mg/dL (180-329); TRANSFERRIN SATURATION 32 % (20-50)
[2016-11-21 07:32] LABS: ALBUMIN SERUM 2.8 g/dL (3.5-5.0); BILIRUBIN,TOTAL 1.3 mg/dL (0.2-2.0); BUN/CREATININE RATIO 12.72; CALCIUM SERUM 12.7 mg/dL (8.4-10.2); CREATININE SERUM 1.1 mg/dL (0.6-1.4); GLOM FILT RATE Estimated 77.9 mL/min (>60); POTASSIUM 3.8 mmol/L (3.5-5.1); PROTEIN TOTAL SERUM 7.8 g/dL (6.0-8.3)
[2016-11-21 08:24] LABS: HEMATOCRIT 27.6 % (38.0-50.0); HEMOGLOBIN 9.3 gm/dL (13.0-16.0); MEAN CELL VOLUME 89.5 FL (83-96); MEAN CORPUSCULAR HGB CONC 33.5 g/dL (30-36); MEAN PLATELET VOLUME 7.4 FL (6.5-11.5); RED BLOOD COUNT 3.09 X10e (3.90-5.60); RED CELL DISTRIBUTION WIDTH 19.5 % (11.0-15.5); WHITE BLOOD COUNT 7.8 X10e3 (4.0-10.5)
[2016-11-22 05:52] LABS: HEMATOCRIT 24.7 % (38.0-50.0); HEMOGLOBIN 8.3 gm/dL (13.0-16.0); MEAN CELL VOLUME 89.9 FL (83-96); MEAN CORPUSCULAR HEMOGLOBIN 30.4 PG (28-34); MEAN CORPUSCULAR HGB CONC 33.8 g/dL (30-36); MEAN PLATELET VOLUME 7.2 FL (6.5-11.5); RED BLOOD COUNT 2.74 X10e (3.90-5.60); RED CELL DISTRIBUTION WIDTH 19.9 % (11.0-15.5); WHITE BLOOD COUNT 7.8 X10e3 (4.0-10.5)
[2016-11-22 06:23] LABS: ALBUMIN SERUM 2.6 g/dL (3.5-5.0); BILIRUBIN,TOTAL 0.7 mg/dL (0.2-2.0); BUN/CREATININE RATIO 15.55; CREATININE SERUM 0.9 mg/dL (0.6-1.4); GLOM FILT RATE Estimated 99.2 mL/min (>60); POTASSIUM 3.4 mmol/L (3.5-5.1); PROTEIN TOTAL SERUM 7.1 g/dL (6.0-8.3)
[2016-11-22 16:09] LABS: HEMOGLOBIN 8.6 gm/dL (13.0-16.0)
[2016-11-23 04:39] LABS: HEMATOCRIT 25.2 % (38.0-50.0); HEMOGLOBIN 8.5 gm/dL (13.0-16.0); MEAN CELL VOLUME 89.8 FL (83-96); MEAN CORPUSCULAR HEMOGLOBIN 30.2 PG (28-34); MEAN CORPUSCULAR HGB CONC 33.6 g/dL (30-36); MEAN PLATELET VOLUME 7.1 FL (6.5-11.5); RED BLOOD COUNT 2.8 X10e (3.90-5.60); RED CELL DISTRIBUTION WIDTH 20.1 % (11.0-15.5); WHITE BLOOD COUNT 6.4 X10e3 (4.0-10.5)
[2016-11-23 05:01] LABS: ALBUMIN SERUM 2.7 g/dL (3.5-5.0); BILIRUBIN,TOTAL 1.1 mg/dL (0.2-2.0); BUN/CREATININE RATIO 13.75; CALCIUM SERUM 12.3 mg/dL (8.4-10.2); CREATININE SERUM 0.8 mg/dL (0.6-1.4); GLOM FILT RATE Estimated 104.2 mL/min (>60); POTASSIUM 3.3 mmol/L (3.5-5.1); PROTEIN TOTAL SERUM 7.5 g/dL (6.0-8.3)
[2016-11-23] MEDS ORDERED: PROTONIX PO (09:51)
== END 2016-11-23 13:01 | disposition home or self-care (01) | DRG 181 ==
LOC: CED 16:01 → CEDOF 19:00 → C3A PCU 19:00 → CEDOF 19:25 → CED 19:25 → C3A PCU 21:15 → CEDOF 21:15 → C3A PCU 11-20 06:00
PROVIDERS: Emergency Medicine; Family Medicine; Internal Medicine; Internal Medicine Hematology; Specialist; Surgery
PROC: 0DJ08ZZ Inspection of Upper Intestinal Tract, Via Natural or Artificial Opening Endoscopic (ICD-10-PCS; 2016-11-20)
PROC: 30233N1 Transfusion of Nonautologous Red Blood Cells into Peripheral Vein, Percutaneous Approach (ICD-10-PCS; 2016-11-20)
PROC: 0DJD8ZZ Inspection of Lower Intestinal Tract, Via Natural or Artificial Opening Endoscopic (ICD-10-PCS; principal; 2016-11-22 11:00)
DX: C34.90 Malignant neoplasm of unspecified part of unspecified bronchus or lung (principal); K62.5 Hemorrhage of anus and rectum; D69.6 Thrombocytopenia, unspecified; Z68.41 Body mass index [BMI] 40.0-44.9, adult; D64.81 Anemia due to antineoplastic chemotherapy; E66.01 Morbid (severe) obesity due to excess calories; K64.8 Other hemorrhoids; Z90.49 Acquired absence of other specified parts of digestive tract; F17.210 Nicotine dependence, cigarettes, uncomplicated; F41.9 Anxiety disorder, unspecified; G35 Multiple sclerosis
CPT/HCPCS: 36415; 70450; 71010; 80048; 80053; 80076; 82553; 82607; 82728; 82947; 83540; 83550; 84484; 85014; 85018; 85025; 85027; 85610; 86850; 86900; 86901; 86923; 93005; 94760; 99291; C9113; J2250; J2916; J2997; J3420; J3489; P9016

== ENCOUNTER 2016-11-23 19:51 | Inpatient (IN) | payer OTHER, MEDICARE ==
--- NOTE | ~2016-11-23 | HP ---
Unit #: [id number] #: [id number] Patient: LUDWIG RANDALL JR [id number] [address] [place], [place] [address] [id number] I MR#: [id number] NAME: LUDWIG RANDALL JR ROOM: [address] Age: 51 Sex: M Admission Date: 11/24/2016 : 1965 Attending Physician: Jalen Musa M.D. Primary Care Physician: Kevin Prince Aprn HISTORY AND PHYSICAL CHIEF COMPLAINT Fever. HISTORY This 51-year-old male with non-small cell lung cancer, currently undergoing chemotherapy and XRT with history of anemia and multiple sclerosis, is admitted for fever. The patient was admitted to this facility 11/19 through 11/23/2016, which was yesterday, for anemia. He was heme positive on rectal examination but upper and lower endoscopy were negative. After leaving the hospital yesterday, he underwent external beam radiation. He felt fatigued, developed chills on the way home. Took his temperature which was as high as 102.6 degrees and, therefore, came back to this emergency department last evening with low grade temperature and was tachycardic. The patient has a chronic cough productive of light green sputum which is unchanged, and his chest CT is actually improved. He denies dysuria, or diarrhea. He did have an IV infiltrate yesterday but the site is actually less red and less painful. He does have a PICC line in his left arm which has been present since August. I did discuss removing the PICC line with the patient although he is hesitant at this time to have it removed. Labs are notable for the patient's anemia, and he was hyponatremic. The patient was treated with Zofran, IV fluids and Dilaudid. He has chronic right hip pain. CT scan of the abdomen and pelvis shows that he has a mass in the right acetabulum and right obturator muscle consistent with a metastatic lesion which the patient was unaware. PAST MEDICAL HISTORY 1. Recent diagnosis of non-small cell lung cancer for which the patient is undergoing chemotherapy and radiation. 2. Admission recently for anemia with negative endoscopy, patient did require transfusion. 3. Multiple sclerosis. 4. Chronic right hip pain. 5. Cholecystectomy. 6. Tonsillectomy. 7. Lap band. 8. Wound debridement, left leg. 9. Left knee surgery. 10. Hernia repair. 11. Previous cardiac catheterization. ALLERGIES Clindamycin. Unit #: [id number] #: [id number] Patient: LUDWIG RANDALL JR HOME MEDICATIONS 1. Percocet 10/325 q.6 hours as needed. 2. Protonix 40 mg b.i.d. 3. Flexeril 10 mg b.i.d. 4. MiraLAX p.r.n. 5. Colace. FAMILY HISTORY Negative for cancer. SOCIAL HISTORY The patient lives with his . He stopped smoking in August, started smoking around age 15. Does not drink alcohol. REVIEW OF SYSTEMS Notable for chronic cough, lung cancer, chronic right hip pain, multiple sclerosis, above mentioned surgeries, fevers and chills. All other systems were reviewed and are otherwise negative. PHYSICAL EXAMINATION GENERAL APPEARANCE: Pleasant, obese 51-year-old male, currently in no acute distress. VITAL SIGNS: Temperature 99.9, pulse was as high as 144 and currently is 114, blood pressure 105/64, O2 saturation 96% on 2 L of oxygen. HEENT: Eyes PERRLA. Extraocular muscles are intact. Pharynx is benign with poor dentition. NECK: Supple without adenopathy or thyromegaly. CHEST: Does reveal some rhonchi. CARDIAC: Normal S1 and S2 without murmur. ABDOMEN: Bowel sounds are present. No hepatosplenomegaly, tenderness or masses. EXTREMITIES: Without edema. No splinter hemorrhages noted over the nail beds. The patient does have hip pain on the right with any sort of movement. He has a PICC line in his left arm which is nontender. He has a right AC area, swelling and mild redness from an infiltrated IV yesterday. NEUROLOGIC: The patient is awake, alert, oriented. Cranial nerves are intact. He has equal strength throughout. DIAGNOSTIC STUDIES LABORATORY: Admission labs - hematocrit is 24.8, down from 25.2. Normal white count. Platelet count is 107 which is improved. Normal MCV. SMA-12 - sodium was 125. It is up to 130 after IV fluids. Potassium is 3.3, chloride is 98, albumin is 2.7. Alkaline phos. 210. Normal lipase. Urinalysis - trace leukocyte esterase and protein with 5-10 white cells, 1+ bacteria. IMAGING: Chest x-ray - small right pleural effusion, atelectasis versus infiltrate right lung, unchanged. CT scan shows improved pleural effusion and aeration on the right. CT scan of the abdomen and pelvis show a mass in the right acetabulum and right obturator muscle consistent with a large metastatic lesion. Unit #: [id number] #: [id number] Patient: LUDWIG RANDALL JR ASSESSMENT 1. Fever of uncertain etiology: Will certainly cover for possible line infection or possible urinary tract infection. The patient has a chronic cough which is unchanged. The CT scan of his chest is improved. 2. Recent admission for anemia with a negative endoscopy. 3. Non-small cell lung cancer, currently receiving chemotherapy and XRT. 4. CT scan of the pelvis shows a new right acetabular mass and right obturator muscle mass. 5. Multiple sclerosis. 6. Hyponatremia. PLANS 1. Cefepime and vancomycin pending urine and blood cultures. 2. I do recommend removal of PICC line with culture of the tip but patient, at this time, is hesitant. 3. SCDs for DVT prophylaxis. 4. IV fluids. 5. Oncology consultation. Dictated by Aggie Orozco M.D. AML/df TD: 11/24/2016 07:59 JOB #: [id number] HISTORY AND PHYSICAL Page 1 of 1 X Aggie Orozco MD HISTORY AND PHYSICAL
--- NOTE | ~2016-11-23 | CT2 ---
[facility] A Service of [facility] & [facility] RADIOLOGY TEXT RESULTS PATIENT: LUDWIG RANDALL JR LOCATION: [facility] 301-01 : [birth year] UNIT #: [id number] AGE: [address]: Jalen Musa MD SEX: M ORDER DR: [id number] [facility] [address] [facility]. [place], [place] [address] [id number] I MR#: [id number] Acc #: [id number] NAME: LUDWIG RANDALL JR : 1965 SEX: M STUDY DATE/TIME: 11/24/2016 0304 UNIT: [facility] ROOM: [id number] STUDY DESCRIPTION: CT Abd and Pelv W Cont Attending Physician: Jalen Musa M.D. Ordering Physician: Jake Ferrer M.D. Primary Care Physician: Kevin Prince Aprn MEDICAL IMAGING REPORT This report is preliminary unless electronic signature is present EXAM Abdomen and pelvis CT, 11/24 at 0304. INDICATION Lung cancer. Fever, chills, shortness of air for 4 weeks. Constipation. Weakness. TECHNIQUE Axial images were obtained through the abdomen and pelvis following oral and IV contrast administration. Multiplanar reformats were obtained. This CT exam was performed with one or more of the following radiation dose reduction techniques: automatic exposure control, adjustment of mA and/or kV according to patient size, and iterative reconstruction. COMPARISON Comparison made with PET/CT from 08/09/2016. FINDINGS ABDOMEN: Gallbladder surgically absent. No biliary obstruction. Gastric band remains in place. The GI tract is normal. No free fluid or adenopathy is seen. The solid organs are normal. PELVIS: Urinary bladder is normal. The GI tract, including the appendix, is normal. There is a new expansile soft tissue mass involving the right side acetabulum and right side obturator internus muscle. This is compatible with a large metastatic deposit. No other definite osseous lesions are seen. IMPRESSION 1. There is a large expansile erosive mass now noted involving the right acetabulum and right obturator internus muscle in the pelvis. It is not completely imaged on this exam but is compatible with a large STS. [facility] A Service of [facility] & [facility] RADIOLOGY TEXT RESULTS PATIENT: LUDWIG RANDALL JR LOCATION: [facility] 301-01 : [birth year] UNIT #: [id number] AGE: [address]: Jalen Musa MD SEX: M ORDER DR: metastatic deposit. No other such lesions are identified. 2. Gastric band in place. GI tract including the appendix is otherwise normal. 3. No other evidence of metastatic disease in the abdomen or pelvis. 4. Cholecystectomy. Dictated by... Sanjiv Samuel Jr., M.D. THIS IS AN ELECTRONICALLY VERIFIED REPORT Sanjiv Samuel Jr., M.D. at 11/24/2016 9:53 PM CHRISS/haider TD: 11/24/2016 09:16 JOB #: [id number] MEDICAL IMAGING REPORT Page 1 of 1 COPY
--- NOTE | ~2016-11-23 | DS ---
Unit #: [id number] #: [id number] Patient: LUDWIG RANDALL JR [id number] [place] [id number] [facility]. [place], [place] [address] [id number] I MR#: [id number] NAME: LUDWIG RANDALL JR ROOM: 301 Age: 51 Sex: M Admission Date: 11/24/2016 : 1965 Discharge Date: Attending Physician: Swapna Zamudio M.D. Primary Care Physician: Kevin Prnice Aprn DISCHARGE SUMMARY DISCHARGE DIAGNOSES 1. Non-small cell lung cancer, now with new right pelvic mass, status post biopsy. 2. Chronic hypoxic respiratory failure. 3. Healthcare-associated pneumonia, likely Gram-negative rods. 4. Obstructive sleep apnea. 5. History of anemia, status post transfusion in the past. 6. Multiple sclerosis. 7. Chronic right hip pain. 8. History of lap band. 9. History of left leg wound with debridement. 10. Morbid obesity. 11. Hypokalemia. 12. Hypercalcemia. 13. Hypomagnesemia. 14. Moderate protein malnutrition. 15. Morbid obesity. CONSULTATION Dr. Figueroa and Dr. De Paz. PROCEDURES 1. The patient had bronchoscopy which shows extensive thick yellow-green mucus plugs, diffuse amount of sloughing tissue from radiation to the right lower lobe and right middle lobe, partially in the main right bronch is present. 2. Also, patient had biopsy of the right pelvic mass. LAB DATA X-ray shows PICC line. Right hemidiaphragm elevated with infiltrate in the right lung base. CT of the head shows no mass. CT of the chest shows marked improvement in right pleural effusion. Dense consolidation right lower lobe and middle lobe present. CT of the abdomen and pelvis shows large expansile irregular mass noted in the right acetabulum and right obturator internus muscle and pelvis present. OTHER LAB DATA Blood culture is negative. Unit #: [id number] #: [id number] Patient: LUDWIG RANDALL JR Bronchoscopic culture is negative. Sodium 136, potassium 3.5, creatinine 0.6, magnesium 1.5, WBC 5.5, hemoglobin 8.9, platelets 234. ALLERGIES Clindamycin. DISCHARGE MEDICATIONS 1. Colace 100 p.o. daily. 2. MiraLAX 17 grams p.o. daily. 3. Percocet 10 mg q.6 p.r.n. pain. 4. Protonix 40 daily. 5. Flexeril 10 mg p.o. b.i.d. p.r.n. muscle pain. 6. KCl 20 mEq p.o. daily. 7. Magnesium oxide 400 p.o. b.i.d. HOSPITALIZATION COURSE 51-year-old admitted because of fever. Fever, possibly healthcare-associated pneumonia: Patient was started on broad spectrum antibiotics including vancomycin and cefepime. Bronchoscopic cultures negative. Patient had bronchoscopy. Sputum culture is negative. Blood culture is negative. Patient received six days of antibiotics. The patient did not need any more antibiotics to take home, according to Dr. Ochoa, so I am going to discontinue antibiotics. Non-small cell lung cancer with right acetabular mass, status post biopsy: Pathology pending. Dr. Figueroa was following. Patient will see Dr. Figueroa on 12/01/2016 for followup of biopsy and further evaluation and treatment as an outpatient. History of multiple sclerosis: Currently, patient is immobile, mostly from right pelvic mass pain. The patient wants to have a wheelchair. I am going to discuss with outsole caser and arrange that. Hypokalemia and hypomagnesemia: Replace with p.o. tablets. I am going to give prescription for him. Moderate protein malnutrition: Continue with high protein diet. Morbid obesity: The patient needs to watch calories. Patient will be discharged home. Follow with family physician in one week time, follow with Dr. Figueroa on 12/01/2016. dealer relationship manager to talk to patient to arrange home health and wheelchair. Discharge time taken is 40 minutes. Dictated by... Cici Kyle Unit #: [id number] #: [id number] Patient: LUDWIG RANDALL JR TD: 11/29/2016 11:03 JOB #: [id number] DISCHARGE SUMMARY Page 1 of 1 X Swapna Zamudio MD DISCHARGE SUMMARY
--- NOTE | ~2016-11-23 | CR72 ---
[facility] A Service of [facility] RADIOLOGY TEXT RESULTS PATIENT: LUDWIG RANDALL JR LOCATION: CEDOF : 67 UNIT #: [id number] AGE: [address]: Jalen Musa MD SEX: M ORDER DR: [id number] [facility] [address] [facility]. [place], [place] [address] [id number] MR#: [id number] Acc #: [id number] NAME: LUDWIG RANDALL JR : 1965 SEX: M STUDY DATE/TIME: 11/23/2016 20:51 UNIT: EMMANUELLE ROOM: STUDY DESCRIPTION: CR Chest Single View Portable Attending Physician: Uyen Woods M.D. Ordering Physician: Jake Ferrer M.D. Primary Care Physician: Kevin Prince Aprn MEDICAL IMAGING REPORT This report is preliminary unless electronic signature is present EXAM AP portable chest DATE 11/23/2016 HISTORY Fever, shortness of breath and cough today. History of lung cancer. COMPARISON AP portable chest 11/19/2016 FINDINGS Airspace disease in the right lower lobe appears unchanged, with probable trace right pleural effusion. Left lung remains clear. Heart size is borderline enlarged, but stable. Degenerative endplate spurring is present in the thoracic spine. No visible pneumothorax. IMPRESSION 1. Persistent small right pleural effusion with mild right basilar atelectasis or infiltrate, without significant change compared to the 11/19/2016 examination. Dictated by... Darlin Plascencia M.D. THIS IS AN ELECTRONICALLY VERIFIED REPORT Darlin Plascencia M.D. at 11/24/2016 10:40 AM [facility]/rosa TD: 11/24/2016 03:45 JOB #: [id number] [facility] A Service of [facility] RADIOLOGY TEXT RESULTS PATIENT: LUDWIG RANDALL JR LOCATION: CED[facility] : 67 UNIT #: [id number] AGE: [address]: Jalen Musa MD SEX: M ORDER DR: MEDICAL IMAGING REPORT Page 1 of 1 COPY
--- NOTE | ~2016-11-23 | CT134 ---
[facility] A Service of [facility] RADIOLOGY TEXT RESULTS PATIENT: LUDWIG RANDALL JR LOCATION: [facility] 301- : 66 UNIT #: [id number] AGE: [address]: Swapna Zamudio MD SEX: M ORDER DR: [id number] [facility] [address] [facility]. [place], [place] [address] [id number] I MR#: [id number] Acc #: [id number] NAME: LUDWIG RANDALL JR : 1965 SEX: M STUDY DATE/TIME: 11/26/2016 10:48 UNIT: C3A PCU ROOM: [facility] STUDY DESCRIPTION: CT Guide Attending Physician: Swapna Zamudio M.D. Ordering Physician: Gonzalo Figueroa M.D. Primary Care Physician: Kevin Prince Aprn MEDICAL IMAGING REPORT This report is preliminary unless electronic signature is present EXAM CT-guided pelvic mass biopsy INDICATION This patient has a history of small cell lung cancer. On a CT performed November 24, 2016, he was noted to have a destructive mass involving the right acetabulum and right hemipelvis. He has been referred for biopsy of this mass. PROCEDURE The risks, benefits, and alternatives to the procedure were explained to the patient, and signed, informed consent was obtained. He was placed prone on the CT scanner gantry. Preliminary CT scan was performed through the region of interest and appropriate site overlying the patient's right pelvic mass was selected. Overlying skin was marked. Patient was prepped and draped in the usual sterile fashion. Time-out was performed as per protocol. Skin and subcutaneous tissues were anesthetized with buffered lidocaine and a 17-gauge coaxial needle was advanced into the mass. Repeat CT scan confirmed appropriate trajectory of the needle. At this point, multiple core samples were obtained using an 18-gauge BioPince biopsy gun. Needle was then removed and manual pressure was applied until hemostasis was obtained. Patient tolerated the procedure well and there were no immediate complications. Moderate sedation was provided to the patient. I supervised the RN and monitored the patient's vital signs for a total of 14 minutes of face to face time. IMPRESSION Technically successful CT-guided pelvic mass biopsy as noted above. CT was used during the procedure and permanent images were saved. Dictated by... [facility] A Service of [facility] RADIOLOGY TEXT RESULTS PATIENT: LUDWIG RANDALL JR LOCATION: [facility] 301-01 : [birth year] UNIT #: [id number] AGE: [address]: Swapna Zamudio MD SEX: M ORDER DR: Marti Maria M.D. THIS IS AN ELECTRONICALLY VERIFIED REPORT Marti Maria M.D. at 11/29/2016 3:53 PM KATLYN/jessee TD: 11/29/2016 08:54 JOB #: [id number] MEDICAL IMAGING REPORT Page 1 of 1 COPY
--- NOTE | ~2016-11-23 | BMI ---
[facility] Nutrition Therapy DATE: 11/25/16 Patient: LUDWIG RANDALL Physician: DAMIAN Address: [address] [place] [address] Room/Bed: [address] [place] [address], Zip: [place] [address] Admit Date: 11/24/16 Date of : 67 Height: 5 7 Weight: 281 127.8 HIGH BMI NOTE: ANTHROPOMETRICS: HT: 67" WT: 127.8 KG BMI: 44.1 DIET: REGULAR RECOMMENDATIONS: 1. ADD A HEART HEALTHY RESTRICTION TO THE PT'S DIET ( APPROPRIATE) IN ORDER TO PROMOTE GRADUAL WEIGHT LOSS TOWARDS A HEALTHY BMI. Respectfully, GLORIA IBARRA RD, LD [facility] cc: client file
--- NOTE | ~2016-11-23 | CR72 ---
[facility] A Service of [facility] RADIOLOGY TEXT RESULTS PATIENT: LUDWIG RANDALL JR LOCATION: [facility] 301- : 67 UNIT #: [id number] AGE: [address]: Swapna Zamudio MD SEX: M ORDER DR: [id number] [facility] [address] [facility]. [place], [place] [address] [id number] I MR#: [id number] Acc #: [id number] NAME: LUDWIG RANDALL JR : 1965 SEX: M STUDY DATE/TIME: 11/28/2016 12:05 [facility] STUDY DESCRIPTION: CR Chest Single View Portable Attending Physician: Jalen Musa M.D. Ordering Physician: Aleja Ross M.D. Primary Care Physician: Kevin Prince Aprn MEDICAL IMAGING REPORT This report is preliminary unless electronic signature is present EXAM Portable chest, 11/28/2016 HISTORY Cough, chest congestion for 6 days and fever. Post invasive procedure, PICC line placement. FINDINGS The heart is enlarged but stable compared with 11/23/2016. Left arm approach PICC line has been inserted with the tip in the superior vena cava. There is poor inspiratory result and elevation of the right hemidiaphragm with infiltrate at the right lung base. Small right pleural effusion. IMPRESSION Left arm approach PICC line tip SVC. Dictated by... Israel Rosa M.D. THIS IS AN ELECTRONICALLY VERIFIED REPORT Israel Rosa M.D. at 11/29/2016 8:07 AM MARYA/juan TD: 11/28/2016 12:20 JOB #: [id number] MEDICAL IMAGING REPORT Page 1 of 1 COPY
--- NOTE | ~2016-11-23 | CT69 ---
[facility] A Service of [facility] RADIOLOGY TEXT RESULTS PATIENT: LUDWIG RANDALL JR LOCATION: [facility] 301- : 67 UNIT #: [id number] AGE: [address]: Swapna Zamudio MD SEX: M ORDER DR: [id number] [facility] [address] [facility]. [place], [place] [address] [id number] I MR#: [id number] Acc #: [id number] NAME: LUDWIG RANDALL JR : 1965 SEX: M STUDY DATE/TIME: 11/26/2016 10:28 UNIT: A U ROOM: [facility] STUDY DESCRIPTION: CT Head W Contrast Attending Physician: Jalen Musa M.D. Ordering Physician: Gonzalo Figueroa M.D. Primary Care Physician: Kevin Prince Aprn MEDICAL IMAGING REPORT This report is preliminary unless electronic signature is present EXAM Head CT with contrast, date of study 11/26/2016. PROCEDURE Axial contrast-enhanced head CT. This CT exam was performed with one or more of the following radiation dose reduction techniques: automatic exposure control, adjustment of mA and/or kV according to patient size, and iterative reconstruction. CLINICAL HISTORY 1-week history of fever. History of small cell lung cancer, 2-week history of frequent falls. Observation for suspected metastatic malignancy. FINDINGS There is no intracranial mass or abnormal enhancement. There is no hydrocephalus or extraaxial fluid collection. The extracranial soft tissues are normal. The skull base and calvaria are normal. There is volume loss and nonspecific white matter change, fairly typical for age, but the exam is otherwise unremarkable. IMPRESSION Mild volume loss and minimal nonspecific white matter change, not substantially greater than expected for age; otherwise, normal negative unenhanced head CT, no mass or abnormal enhancement. Dictated by... Moe Alfred M.D. THIS IS AN ELECTRONICALLY VERIFIED REPORT Moe Alfred M.D. at 12/03/2016 5:38 PM [facility] A Service of [facility] RADIOLOGY TEXT RESULTS PATIENT: LUDWIG RANDALL JR LOCATION: [facility] 301-01 : 66 UNIT #: [id number] AGE: [address]: Swapna Zamudio MD SEX: M ORDER DR: Pastora TD: 11/26/2016 17:16 JOB #: [id number] MEDICAL IMAGING REPORT Page 1 of 1 COPY
--- NOTE | ~2016-11-23 | CT55 ---
[facility] A Service of [facility] RADIOLOGY TEXT RESULTS PATIENT: LUDWIG RANDALL JR LOCATION: [facility] 301-01 : 67 UNIT #: [id number] AGE: [address]: Jalen Musa MD SEX: M ORDER DR: [id number] [facility] [address] [place], [place] [address] [id number] I MR#: [id number] Acc #: [id number] NAME: LUDWIG RANDALL JR : 1965 SEX: M STUDY DATE/TIME: 11/24/2016 03:04 UNIT: CEDOF ROOM: [id number] STUDY DESCRIPTION: CT Chest W Con Attending Physician: Jalen Musa M.D. Ordering Physician: Jake Ferrer M.D. Primary Care Physician: Kevin Prince Aprn MEDICAL IMAGING REPORT This report is preliminary unless electronic signature is present EXAM Chest CT, 11/24 at 0304. INDICATIONS Fever, chills and shortness of air with left side chest pain for 4 weeks. Lung cancer. TECHNIQUE Axial images were obtained through the chest following IV contrast administration. Multiplanar reformats were obtained. Comparison made with 09/21/16. This CT exam was performed with one or more of the following radiation dose reduction techniques: automatic exposure control, adjustment of mA and/or kV according to patient size, and iterative reconstruction. FINDINGS Left arm PICC remains in place with the tip at the confluence of the left brachiocephalic vein and SVC. No pericardial effusion. There is a minimal amount of right pleural fluid, much improved since the prior chest CT. No left-side pleural effusion is seen. There is no adenopathy. Left lung is clear. On the right side, there is some minimal anterior scarring or atelectasis in the upper lobe. Dense consolidation is present in the right lower lobe. No suspicious osseous lesions are identified. For description of findings in the upper abdomen, please see the abdomen and pelvis CT report dictated separately. IMPRESSION 1. Marked interval improvement in the right pleural effusion. Minimal amount of residual right pleural fluid is present. 2. Marked improvement in aeration of the right lung. There is still some dense consolidation in the right lower lobe and right middle lobe. How much of this is due to residual atelectasis versus tumor, scarring, or even pneumonia is not readily apparent as this area was STS. [facility] A Service of [facility] RADIOLOGY TEXT RESULTS PATIENT: LUDWIG RANDALL JR LOCATION: A 301-01 : 67 UNIT #: [id number] AGE: [address]: Jalen Musa MD SEX: M ORDER DR: completely consolidated on the prior study. Short-interval followup chest CT suggested. The left lung is clear. 3. No adenopathy is identified. Dictated by... Sanjiv Samuel Jr., M.D. THIS IS AN ELECTRONICALLY VERIFIED REPORT Sanjiv Samuel Jr., M.D. at 11/24/2016 9:53 PM CHRISS/reuben TD: 11/24/2016 09:04 JOB #: [id number] MEDICAL IMAGING REPORT Page 1 of 1 COPY
--- NOTE | ~2016-11-23 | CO ---
Unit #: [id number] #: [id number] Patient: LUDWIG RANDALL JR [id number] [address] [address] [id number] I MR#: [id number] NAME: LUDWIG RANDALL JR ROOM: 301 Age: 51 Sex: M Admission Date: 11/24/2016 : 1965 Attending Physician: Jalen Musa M.D. Primary Care Physician: Kevin Prince Aprn Consultation Date: 11/24/2016 CONSULTATION REPORT REASON FOR CONSULT Pneumonia. HISTORY OF PRESENT ILLNESS This is a very pleasant 51-year-old male with history of non-small cell lung cancer, currently undergoing chemotherapy and radiation, with a history of anemia and multiple sclerosis. He is admitted to the hospital with high fever and extreme chills. The patient stated that he has been running a fever, having chills and night sweats for the lasts few days and feeling profoundly fatigued and worn out. The patient has been coughing up yellowish to greenish sputum for the last few weeks, but it is not different over the last few days. He denies any nausea, vomiting or diarrhea. He lives at home with his , and he is on 2 liters nasal cannula all the time. PAST MEDICAL HISTORY 1. Non-small cell lung cancer. 2. Multiple sclerosis. 3. Anemia. 4. Morbid obesity. 5. Chronic hypoxic respiratory failure. PAST SURGICAL HISTORY 1. Cholecystectomy. 2. Tonsillectomy. 3. Lap-Band. 4. Wound debridement. 5. Left knee surgery. 6. Hernia repair. 7. Cath. ALLERGIES Clindamycin. HOME MEDICATIONS 1. Percocet. 2. Protonix. 3. Flexeril. 4. MiraLAX. 5. Colace. FAMILY HISTORY Negative for cancer. Unit #: [id number] #: [id number] Patient: LUDWIG RANDALL JR SOCIAL HISTORY The patient lives with his . He quit smoking in August 2016, but he started smoking at the age of 15. No history of alcohol or drug abuse. REVIEW OF SYSTEMS Twelve-point review of systems was obtained and was negative except for what was mentioned in the HPI. PHYSICAL EXAM VITAL SIGNS: Temperature 99.9, pulse 104, respiratory rate 21, O2 saturation 98%. HEENT: Atraumatic, normocephalic. PERRLA, EOMI. NECK: Supple. No JVD. No lymphadenopathy. CHEST: Bilateral fine rhonchi, more on the right. HEART: S1, S2. Slightly tachycardic. ABDOMEN: Soft, nontender. Bowel sounds positive. No hepatosplenomegaly. EXTREMITIES: No edema or cyanosis. SKIN: No rashes. HELP DESK TECHNICIAN: Awake, alert, oriented x3. No focal motor/sensory deficits. EXTREMITIES: No edema. SKIN: No rashes. LABS AND OTHER TESTS LABS: Creatinine is 0.8, sodium 130, potassium 3.3. White blood count 6.6, hemoglobin 8.4. IMAGING TESTS: CT chest is reviewed by me. ASSESSMENT 1. Healthcare-associated pneumonia, likely gram-negative/MRSA. 2. Chronic hypoxic respiratory failure. 3. Morbid obesity. 4. Non-small cell lung cancer. 5. Chronic anemia. PLAN 1. Patient will undergo bronchoscopy tomorrow given his cancer and active chemo/radiation. 2. Will continue the patient on broad-spectrum antibiotics, vancomycin, cefepime. 3. Will add bronchodilator and mucolytics. 4. Encourage ambulation and out of bed to chair. 5. DVT prophylaxis. NOTE: I would like to thank you for allowing me to be part of this patient's care. Dictated by... Mary De Paz M.D. EA/breanna TD: 11/24/2016 15:45 JOB #: [id number] Unit #: [id number] #: [id number] Patient: LUDWIG RANDALL JR CONSULTATION REPORT Page 1 of 1 X MARY GORDON MD CONSULTATION REPORT
--- NOTE | ~2016-11-23 | OR ---
Unit #: [id number] #: [id number] Patient: LUDWIG RANDALL JR [id number] [address] [place], [place] [address] [id number] I MR#: [id number] NAME: LUDWIG RANDALL ROOM: 301 Date of Procedure: 11/25/2016 Admission Date: 11/24/2016 Surgeon: Mary De Paz M.D. : 1965 Attending Physician: Jalen Musa M.D. Primary Care Physician: Kevin Prince Aprn PROCEDURE OPERATIVE NOTE PROCEDURE Diagnostic and therapeutic bronchoscopy with bronchoalveolar lavage and endobronchial biopsy. INDICATION FOR PROCEDURE Pneumonia. PREOP DIAGNOSIS Lung cancer and pneumonia. FINDINGS 1. Extensive amount of thick yellowish/greenish mucus plugs extending from the level of the john into the right main bronchus, right lower lobe, right middle lobe and right upper lobe which was lavaged and cleared. 2. Diffuse amount of sloughing tissue from radiation in the right lower lobe, right middle lobe and partially in the right main bronchus. PREMEDICATION MAC sedation. DESCRIPTION OF THE PROCEDURE An informed consent was obtained from the patient after explaining the benefits and risks of this procedure. The patient was prepped and positioned in a proper way. Then, after he was inducted with propofol, the bronchoscope was advanced through his oral cavity and at the level of the vocal cords 2% lidocaine was instilled and the bronchoscope was advanced through the vocal cords, which appeared normal, into the trachea and patient was noted immediately to have a lot of diffuse, thick, yellowish/greenish secretions extending into the mid trachea to the john, into the right side. Mucus plugs were flushed and lavaged appropriately, then the bronchoscope was advanced into the trachea to the level of the john and 1% lidocaine up to 10 mL was instilled and the bronchoscope was advanced into the right main bronchus and the right upper lobe, right middle lobe and right lower lobe were examined and patient was noted to have extensive amount of sloughing tissue into the right main bronchus, right middle lobe and partially into the right main bronchus. Multiple endobronchial biopsies were obtained from multiple locations to ensure no recurrence of his lung cancer. Then, the bronchoscope was wedged at the level of the right lower lobe and 60 mL of normal saline was instilled and 18 mL was aspirated back which will be sent for microbiology and cytology. Unit #: [id number] #: [id number] Patient: LUDWIG RANDALL JR The bronchoscope was retracted to the level of the john and then readvanced into the left main bronchus and the left upper lobe, left middle lobe and lingula were examined which appeared normal with no other bronchial lesions or secretions. The bronchoscope was retracted out. The patient tolerated the procedure well with no immediate complications. Dictated by... Mary De Paz M.D. EA/aaliyah TD: 11/26/2016 13:18 JOB #: [id number] PROCEDURE OPERATIVE NOTE Page 1 of 1 X MARY GORDON MD X PROCEDURE OPERATIVE NOTE
[~2016-11-23 19:51] MED LIST changes: +DOCUSATE SODIU100 MG PO; +GI COCKTAIL; +MIRALAX17 GM DOB; +PERCOCET10 PO; +PROTONIX PO
[2016-11-23 21:00] LABS: BASOPHIL% 0.3 % (0-2.5); HEMATOCRIT 24.8 % (38.0-50.0); HEMOGLOBIN 8.4 gm/dL (13.0-16.0); LYMPHOCYTE# 0.2 X10e3 (1.0-3.5); LYMPHOCYTE% 2.5 % (17.0-45.0); MEAN CELL VOLUME 88.6 FL (83-96); MEAN CORPUSCULAR HEMOGLOBIN 30.1 PG (28-34); MEAN PLATELET VOLUME 6.8 FL (6.5-11.5); MONOCYTE# 0.5 X10e3 (0-1.0); MONOCYTE% 7.9 % (3.0-12.0); NEUTROPHIL# 5.9 X10e3 (1.5-7.1); NEUTROPHIL% 89.3 % (40-75); PLATELET COUNT 107 X10e3 (140-420); RED CELL DISTRIBUTION WIDTH 19.9 % (11.0-15.5); WHITE BLOOD COUNT 6.6 X10e3 (4.0-10.5)
[2016-11-23 21:01] LABS: DIFF IND NO
[2016-11-23 21:28] LABS: ALBUMIN SERUM 2.7 g/dL (3.5-5.0); BILIRUBIN, DIRECT 0.2 mg/dL (0.0-0.2); BILIRUBIN,INDIRECT 0.6 mg/dL (0.0-0.9); BILIRUBIN,TOTAL 0.8 mg/dL (0.2-2.0); GLOM FILT RATE Estimated 87.4 mL/min (>60); POTASSIUM 3.3 mmol/L (3.5-5.1); PROTEIN TOTAL SERUM 7.8 g/dL (6.0-8.3)
[2016-11-24 00:52] LABS: URINE SOURCE CLEAN CATCH
[2016-11-24 00:55] LABS: URINE APPEARANCE CLEAR; URINE BILIRUBIN NEG (NEG); URINE BLOOD NEG (NEG); URINE COLOR YELLOW; URINE GLUCOSE NEG (NEG); URINE KETONE NEG (NEG); URINE LEUKOCYTE ESTERASE TRACE (NEG); URINE NITRATE NEG (NEG); URINE PH 6.5 (5-8); URINE PROTEIN TRACE (NEG); URINE SPECIFIC GRAVITY 1.016 (1.003-1.035)
[2016-11-24 00:57] LABS: CULTURE INDICATED? YES; URINE BACTERIA AUWI 1+ (NEGATIVE); URINE SQUAMOUS EPITHELIAL CELL OCC /[HPF]
[2016-11-24 01:09] LABS: U HYALINE CASTS AUWI 0-2 /[LPF]
[2016-11-24 05:24] LABS: BUN/CREATININE RATIO 12.5; CALCIUM SERUM 9.8 mg/dL (8.4-10.2); CREATININE SERUM 0.8 mg/dL (0.6-1.4); GLOM FILT RATE Estimated 104.2 mL/min (>60); POTASSIUM 3.3 mmol/L (3.5-5.1)
[2016-11-25 06:34] LABS: INR 1.1; PARTIAL THROMBOPLASTIN TIME 29.6 SECONDS (23.5-31.3); PROTHROMBIN TIME (PATIENT) 11.8 SECONDS (10.0-11.7)
[2016-11-25 06:35] LABS: BASOPHIL% 0.3 % (0-2.5); EOSINOPHIL% 0.3 % (0.0-7.0); HEMATOCRIT 22.8 % (38.0-50.0); HEMOGLOBIN 7.6 gm/dL (13.0-16.0); LYMPHOCYTE# 0.2 X10e3 (1.0-3.5); LYMPHOCYTE% 4.4 % (17.0-45.0); MEAN CORPUSCULAR HEMOGLOBIN 30.1 PG (28-34); MEAN CORPUSCULAR HGB CONC 33.5 g/dL (30-36); MONOCYTE# 0.6 X10e3 (0-1.0); MONOCYTE% 10.2 % (3.0-12.0); NEUTROPHIL# 4.7 X10e3 (1.5-7.1); NEUTROPHIL% 84.8 % (40-75); PLATELET COUNT 113 X10e3 (140-420); RED BLOOD COUNT 2.53 X10e (3.90-5.60); RED CELL DISTRIBUTION WIDTH 20.8 % (11.0-15.5); WHITE BLOOD COUNT 5.6 X10e3 (4.0-10.5)
[2016-11-25 06:37] LABS: DIFF IND YES
[2016-11-25 06:50] LABS: ALBUMIN SERUM 2.3 g/dL (3.5-5.0); BILIRUBIN,TOTAL 0.7 mg/dL (0.2-2.0); CALCIUM SERUM 9.4 mg/dL (8.4-10.2); CREATININE SERUM 0.8 mg/dL (0.6-1.4); GLOM FILT RATE Estimated 104.2 mL/min (>60); POTASSIUM 3.3 mmol/L (3.5-5.1); PROTEIN TOTAL SERUM 6.7 g/dL (6.0-8.3)
[2016-11-25 06:53] LABS: ANISOCYTOSIS MOD; PLATELET ESTIMATE DECREASED (NORMAL)
[2016-11-25 10:11] LABS: BODY FLUID SOURCE BRONCHIAL LAVAGE
[2016-11-25 10:12] LABS: BF TOTAL NUCLEATED CELL COUNT 2741 CMM (0-100); BODY FLUID APPEARANCE BLOODY; BODY FLUID RBC 27414 CMM
[2016-11-26 05:29] LABS: HEMATOCRIT 27.4 % (38.0-50.0); HEMOGLOBIN 9.2 gm/dL (13.0-16.0); MEAN CELL VOLUME 89.6 FL (83-96); MEAN CORPUSCULAR HEMOGLOBIN 30.2 PG (28-34); MEAN CORPUSCULAR HGB CONC 33.7 g/dL (30-36); RED BLOOD COUNT 3.06 X10e (3.90-5.60); RED CELL DISTRIBUTION WIDTH 19.4 % (11.0-15.5); WHITE BLOOD COUNT 6.5 X10e3 (4.0-10.5)
[2016-11-26 06:33] LABS: BUN/CREATININE RATIO 8.57; CALCIUM SERUM 8.8 mg/dL (8.4-10.2); CREATININE SERUM 0.7 mg/dL (0.6-1.4); GLOM FILT RATE Estimated 110.1 mL/min (>60); POTASSIUM 3.2 mmol/L (3.5-5.1)
[2016-11-26 12:05] LABS: INR 1.1; PROTHROMBIN TIME (PATIENT) 12.2 SECONDS (10.0-11.7)
[2016-11-27 06:10] LABS: HEMATOCRIT 26.2 % (38.0-50.0); HEMOGLOBIN 8.8 gm/dL (13.0-16.0); MEAN CELL VOLUME 88.9 FL (83-96); MEAN CORPUSCULAR HEMOGLOBIN 29.9 PG (28-34); MEAN CORPUSCULAR HGB CONC 33.7 g/dL (30-36); RED BLOOD COUNT 2.95 X10e (3.90-5.60); RED CELL DISTRIBUTION WIDTH 19.8 % (11.0-15.5); WHITE BLOOD COUNT 5.8 X10e3 (4.0-10.5)
[2016-11-27 06:51] LABS: ALBUMIN SERUM 2.2 g/dL (3.5-5.0); BILIRUBIN,TOTAL 0.1 mg/dL (0.2-2.0); CREATININE SERUM 0.6 mg/dL (0.6-1.4); GLOM FILT RATE Estimated 117.3 mL/min (>60); PROTEIN TOTAL SERUM 6.5 g/dL (6.0-8.3)
[2016-11-28 07:04] LABS: HEMATOCRIT 26.4 % (38.0-50.0); HEMOGLOBIN 8.8 gm/dL (13.0-16.0); MEAN CELL VOLUME 90.3 FL (83-96); MEAN CORPUSCULAR HEMOGLOBIN 30.1 PG (28-34); MEAN CORPUSCULAR HGB CONC 33.3 g/dL (30-36); MEAN PLATELET VOLUME 6.7 FL (6.5-11.5); RED BLOOD COUNT 2.92 X10e (3.90-5.60); RED CELL DISTRIBUTION WIDTH 19.9 % (11.0-15.5); WHITE BLOOD COUNT 4.9 X10e3 (4.0-10.5)
[2016-11-28 09:43] LABS: CREATININE SERUM 0.5 mg/dL (0.6-1.4); GLOM FILT RATE Estimated 126.4 mL/min (>60); POTASSIUM 3.7 mmol/L (3.5-5.1)
[2016-11-29 07:39] LABS: HEMATOCRIT 26.4 % (38.0-50.0); HEMOGLOBIN 8.9 gm/dL (13.0-16.0); MEAN CELL VOLUME 90.3 FL (83-96); MEAN CORPUSCULAR HEMOGLOBIN 30.4 PG (28-34); MEAN CORPUSCULAR HGB CONC 33.7 g/dL (30-36); MEAN PLATELET VOLUME 6.7 FL (6.5-11.5); RED BLOOD COUNT 2.92 X10e (3.90-5.60); RED CELL DISTRIBUTION WIDTH 19.8 % (11.0-15.5); WHITE BLOOD COUNT 5.4 X10e3 (4.0-10.5)
[2016-11-29 08:06] LABS: CARBON DIOXIDE 26 mmol/L (22-31); CHLORIDE 105 mmol/L (100-111); CREATININE SERUM 0.6 mg/dL (0.6-1.4); GLOM FILT RATE Estimated 117.3 mL/min (>60); GLUCOSE FASTING 84 mg/dL (70-110); MAGNESIUM 1.5 mg/dL (1.6-3.0); POTASSIUM 3.5 mmol/L (3.5-5.1); SODIUM 136 mmol/L (135-145)
[2016-11-29 08:07] LABS: BLOOD UREA NITROGEN <5 mg/dL (9-23); BUN/CREATININE RATIO 8.33
[2016-11-29] MEDS ORDERED: K-DUR20 ME1 PO (10:31)
[2016-11-29] MEDS ORDERED: MAG-OX 400400 M1 PO (10:32)
[2016-11-29] MEDS ORDERED: LEVAQUIN750 MG PO (13:14)
== END 2016-11-29 13:54 | disposition home health service (06) | DRG 167 ==
LOC: CED 19:51 → C3A PCU 11-24 06:00 → CEDOF 11-24 06:00 → CED 11-24 06:05 → CEDOF 11-24 06:05 → C3A PCU 11-24 06:05 → CEDOF 11-24 07:57 → C3A PCU 11-24 11:40 → CEDOF 11-24 11:40 → C3A PCU 11-29 08:08
PROVIDERS: Emergency Medicine; Family Medicine; Internal Medicine Endocrinology, Diabetes & Metabolism; Internal Medicine Hematology; Internal Medicine Pulmonary Disease
PROC: 30233N1 Transfusion of Nonautologous Red Blood Cells into Peripheral Vein, Percutaneous Approach (ICD-10-PCS; 2016-11-25)
PROC: 0B9F8ZX Drainage of Right Lower Lung Lobe, Via Natural or Artificial Opening Endoscopic, Diagnostic (ICD-10-PCS; principal; 2016-11-26)
PROC: 0BB38ZX Excision of Right Main Bronchus, Via Natural or Artificial Opening Endoscopic, Diagnostic (ICD-10-PCS; 2016-11-26)
PROC: 0BB68ZX Excision of Right Lower Lobe Bronchus, Via Natural or Artificial Opening Endoscopic, Diagnostic (ICD-10-PCS; 2016-11-26)
PROC: 0BB58ZX Excision of Right Middle Lobe Bronchus, Via Natural or Artificial Opening Endoscopic, Diagnostic (ICD-10-PCS; 2016-11-26)
DX: J15.6 Pneumonia due to other Gram-negative bacteria (principal); C79.51 Secondary malignant neoplasm of bone; J96.11 Chronic respiratory failure with hypoxia; E44.0 Moderate protein-calorie malnutrition; Z68.41 Body mass index [BMI] 40.0-44.9, adult; E87.1 Hypo-osmolality and hyponatremia; E83.42 Hypomagnesemia; C34.90 Malignant neoplasm of unspecified part of unspecified bronchus or lung; E66.01 Morbid (severe) obesity due to excess calories; D64.9 Anemia, unspecified; G35 Multiple sclerosis; Z90.49 Acquired absence of other specified parts of digestive tract; G47.33 Obstructive sleep apnea (adult) (pediatric); E87.6 Hypokalemia; E83.52 Hypercalcemia
CPT/HCPCS: 36415; 70460; 71010; 71260; 74177; 77012; 80048; 80053; 80076; 80202; 81003; 83605; 83690; 83735; 84132; 85025; 85027; 85610; 85730; 86850; 86900; 86901; 86923; 87040; 87070; 87086; 87088; 87102; 87116; 87186; 87205; 87206; 87252; 87254; 87278; 88108; 88305; 88312; 89051; 94640; 94760; 96361; 96374; 96375; 99285; J0171; J0692; J1170; J1650; J1940; J2250; J2405; J2997; J3010; J3370; J3475; P9016; Q9967

== ENCOUNTER 2016-12-09 06:32 | Inpatient (IN) | payer OTHER, MEDICARE ==
--- NOTE | ~2016-12-09 | EKG ---
PATIENT: LUDWIG RANDALL UNIT #: [id number] Ventricular Rate: 124 BPM Atrial Rate: 124 BPM P-R Interval: 140 ms QRS Duration: 140 ms Q-T Interval: 340 ms QTC Calculation(Bezet): 488 ms P [place]: 29 degrees Calculated R [place]: 130 degrees Calculated T [place]: 26 degrees Diagnosis Line: Sinus tachycardia Diagnosis Line: Right bundle branch block Diagnosis Line: Left posterior fascicular block Diagnosis Line: Bifascicular block Diagnosis Line: Abnormal ECG Diagnosis Line: When compared with ECG of 19-NOV-2016 16:49, Diagnosis Line: Left posterior fascicular block is now Present Diagnosis Line: Confirmed by KILEY STAPLES MD ([id number]) on Diagnosis Line: 12/10/2016 7:58:52 AM INTERPRETING MD: JHOAN CHAKRABORTY
--- NOTE | ~2016-12-09 | CO ---
Unit #: [id number] #: [id number] Patient: LUDWIG RANDALL JR [id number] [address] [address] [id number] I MR#: [id number] NAME: LUDWIG RANDALL JR ROOM: 340 Age: 51 Sex: M Admission Date: 12/09/2016 : 1965 Attending Physician: Rajeev Garcia M.D. Primary Care Physician: Kevin Prince Aprn Consultation Date: 12/10/2016 CONSULTATION REPORT REASON FOR CONSULT Hallucinating. HISTORY OF PRESENT ILLNESS This is a 51-year-old male who is well known to our service from previous admission with past medical history significant for non-small cell lung cancer, pelvis mass concerning for metastases, obstructive sleep apnea, anemia, multiple sclerosis, morbid obesity, who presented to the emergency room for evaluation of hallucination. The patient was just released from the hospital a few days ago after an admission for pneumonia. During his admission, also he had a biopsy of his pelvic mass and pathology is still pending at the time of dictation. Per , the patient has had some visual hallucinations for the last few days. denied any fever, chills or night sweats. However, he was coughing and sometimes with sputum production varied from yellowish to light greenish. The patient also had decreased oral intake with poor appetite and he had one time vomiting in the last 24 hours. No diarrhea or constipation. PAST MEDICAL HISTORY 1. Recurrent pneumonia. 2. Non-small cell lung cancer. 3. Chronic respiratory failure on 2 L nasal cannula. 4. Obstructive sleep apnea. 5. Morbid obesity. 6. Chronic anemia. 7. Multiple sclerosis. PAST SURGICAL HISTORY 1. Cholecystectomy. 2. Tonsillectomy. 3. Lap band. 4. Wound debridement. 5. Left knee surgery. 6. Hernia repair. 7. Cardiac catheterization. 8. Bronchoscopy. SOCIAL HISTORY Unit #: [id number] #: [id number] Patient: LUDWIG RANDALL JR The patient lives with his . He quit smoking in August 2016 but he started smoking at the age of 19. No history of alcohol or drug abuse. Code status is Full. FAMILY HISTORY Coronary artery disease. ALLERGIES Clindamycin. HOME MEDICATIONS 1. Percocet. 2. Flexeril. 3. MiraLAX. 4. Colace. 5. Protonix. 6. Potassium. 7. Magnesium. 8. Levaquin. REVIEW OF SYSTEMS Twelve point review of systems were obtained and were negative except for what was mentioned in the HPI. LABS AND OTHER TESTS Creatinine 0.5, sodium 132, potassium 4.0, calcium 11.0, white blood count 8.2, hemoglobin 10.7. Imaging tests including chest x-ray showed persistent right lower lobe effusion and infiltrate. ASSESSMENT 1. Toxic metabolic encephalopathy. 2. Visual hallucination. 3. Rule out Gram-negative pneumonia. 4. Non-small cell lung cancer. 5. Morbid obesity. 6. Chronic hypoxic respiratory failure. 7. Hyperkalemia. 8. Hyponatremia. PLAN 1. The etiology of his hallucination and confusion is likely multifactorial secondary to hyperkalemia and recent pneumonia and probably medication side effect. 2. Unfortunately, due to the nature of his airway, the patient will be always at risk for pneumonia and this has been discussed with him from last admission. His cancer and sloughing tissues from radiation and chemo is constantly creating mechanical obstruction in the airways leading to pneumonia. The patient would benefit from bronchoscopy with debridement at some point. However, he needs to be in more stable condition before we proceed with that. 3. Will continue the broad spectrum antibiotics but hopefully will be able to de-escalate as possible since his cough is better than what it was last month and there is no fever or leukocytosis. 4. Bronchodilator and mucolytics. 5. DVT/GI prophylaxis. Unit #: [id number] #: [id number] Patient: LUDWIG RANDALL JR Dictated by... Mary De Paz M.D. EA/aaliyah TD: 12/11/2016 09:55 JOB #: [id number] CONSULTATION REPORT Page 1 of 1 X MARY GORDON MD CONSULTATION REPORT
--- NOTE | ~2016-12-09 | DS ---
Unit #: [id number] #: [id number] Patient: LUDWIG RANDALL JR [id number] [address] [address] [id number] I MR#: [id number] NAME: LUDWIG RANDALL JR ROOM: 340 Age: 51 Sex: M Admission Date: 12/09/2016 : 1965 Discharge Date: 12/13/2016 Attending Physician: Rajeev Garcia M.D. Primary Care Physician: Kevin Prince, Zuhair DISCHARGE SUMMARY PRIMARY DIAGNOSIS Hallucinations, likely secondary to medications including opiates with Flexeril. SECONDARY DIAGNOSES 1. Nonsmall cell lung cancer with a large metastasis to the right hip. 2. Obstructive sleep apnea without CPAP at home at this time. 3. Chronic hypoxemic respiratory failure. 4. Anemia. 5. Morbid obesity. 6. Multiple sclerosis. 7. Hypercalcemia, resolved. HOSPITAL COURSE The patient was admitted to the hospital with new hallucinations. He did have some moderate hypercalcemia with a calcium level of 11 at admission. He was treated with IV fluids and with a single dose of Zometa. Patient showed clinical improvement with this treatment and with holding of his Flexeril over 72 hours. Patient's morbid obesity prevented him from being able to get an inpatient MRI and as he is clinically improved, will defer the possibility of needing an outpatient MRI to oncology at oncology followup if they feel that brain metastases need to be ruled out. On initial presentation, there was some concern about possible pneumonia. The patient was seen by pulmonology and his imaging was felt to be due to his lung cancer, not to any acute infectious process and so antibiotics were stopped. The patient is bedbound and has been since diagnosis of his right hip metastasis. Patient was discussed with Dr. De Paz and with Dr. Figueroa on the day of discharge. If patient continues to show clinical improvement from an oncologic standpoint, he can be referred back to Dr. De Paz with pulmonology for an outpatient sleep study. Unfortunately, the patient's prognosis is guarded and should he continue to decline as he generally appears to be doing, patient could be referred to hospice and would therefore then not need to be referred back to Dr. De Paz obviously. DISCHARGE DISPOSITION To home. DISCHARGE STATUS Stable but with what appears to be likely terminal cancer. Unit #: [id number] #: [id number] Patient: LUDWIG RANDALL JR DISCHARGE ACTIVITY The patient is wheelchair and bedbound. DISCHARGE DIET Unrestricted. DISCHARGE FOLLOWUP Discharge followup is with Dr. Figueroa with oncology tomorrow at 1 p.m. DISCHARGE MEDICATIONS 1. Magnesium oxide 400 mg p.o. b.i.d. 2. Metoprolol tartrate 25 mg p.o. b.i.d. 3. Colace 100 mg p.o. daily. 4. MiraLax 17 g p.o. daily. 5. Ferrous gluconate 324 mg p.o. daily. 6. Percocet 10/325 one to two tablets p.o. q.6 hours p.r.n. pain. 7. Protonix 40 mg p.o. daily. 8. Potassium chloride 20 mEq p.o. b.i.d. Dictated by... Rajeev Garcia M.D. JUAN CARLOS/sharlene TD: 12/14/2016 09:25 JOB #: [id number] DISCHARGE SUMMARY Page 1 of 1 X Rajeev Garcia MD X DISCHARGE SUMMARY
--- NOTE | ~2016-12-09 | CT71 ---
[facility] A Service of [facility] RADIOLOGY TEXT RESULTS PATIENT: LUDWIG RANDALL JR LOCATION: [facility] 340-01 : [birth year] UNIT #: [id number] AGE: [address]: Shelley Mai MD SEX: M ORDER DR: [id number] [facility] [address] [facility]. [place], [place] [address] [id number] E MR#: [id number] Acc #: [id number] NAME: LUDWIG RANDALL JR : 1965 SEX: M STUDY DATE/TIME: 12/09/2016 8:13 UNIT: [facility] ROOM: STUDY DESCRIPTION: CT Head Wo Contrast Attending Physician: Dariusz Fox M.D. Ordering Physician: Dariusz Fox M.D. Primary Care Physician: Kevin Prince Aprn MEDICAL IMAGING REPORT This report is preliminary unless electronic signature is present EXAM CT head without contrast dated 12/09/[address] head without contrast dated 11/26/2016. HISTORY Auditory and visual hallucinations for 4 days. Increased blood pressure and history of lung cancer. FINDINGS CT of the head was obtained without contrast in the axial plane as per the protocol. This CT examination was performed with one or more of the following radiation dose reduction techniques: automatic exposure control, adjustment of mA and/or kV according to patient size, and iterative reconstruction. No acute intracranial hemorrhage, space-occupying mass, mass effect, midline shift or hydrocephalus. Minimal S-shaped nasal septal deviation is seen with small nodular mucosal thickening in the posteromedial right maxillary antrum. Imaged orbits with the ocular structures and mastoids are unremarkable. Bones are within normal limits too. IMPRESSION No demonstrable intracranial abnormality. Dictated by... Landry Randolph M.D. THIS IS AN ELECTRONICALLY VERIFIED REPORT Landry Randolph M.D. at 12/09/2016 3:38 PM CPR/mjs [facility] A Service [facility] RADIOLOGY TEXT RESULTS PATIENT: LUDWIG RANDALL JR LOCATION: [facility] 340-01 : [birth year] UNIT #: [id number] AGE: [address]: Shelley Mai MD SEX: M ORDER DR: TD: 12/09/2016 09:47 JOB #: [id number] MEDICAL IMAGING REPORT Page 1 of 1 COPY
--- NOTE | ~2016-12-09 | CO ---
Unit #: [id number] #: [id number] Patient: LUDWIG RANDALL JR [id number] [address] [place], [place] [address] [id number] I MR#: [id number] NAME: LUDWIG RANDALL JR ROOM: 340 Age: 51 Sex: M Admission Date: 12/09/2016 : 1965 Attending Physician: Rajeev Garcia M.D. Primary Care Physician: Kevin Prince Aprn CONSULTATION REPORT CHIEF COMPLAINT Squamous cell cancer, now metastatic disease in the right acetabulum. Initially it was a Stage III, received chemo and radiation HDR, now has metastatic disease while receiving treatment, confusion and hallucinations. HISTORY OF PRESENT ILLNESS This is a 51-year-old man who came to the hospital on December 10, 2016, with chest pain and short of breath. CT of the chest showed right middle lobe infiltrate. There was no obvious mass. However, the patient then came and had CT of the chest on 08/23/2016. It showed almost 4 cm right hilar mass causing obstruction of the middle lobe. It is T4 lesion due to obstruction. PET scan confirmed the local mass, SUV was 17. The patient had bronchoscopy. Pathology revealed non-small cell carcinoma. Final pathology determined it to be T4 N1 M0. Due to an obstruction, he received concurrent chemo radiation with good response. Recently, the patient had CT of the abdomen and pelvis and it shows large mass in the acetabulum and biopsy squamous cell cancer, PDL1 is 10%. He was supposed to get chemo with Opdivo next week, however, he came with hallucinations and declining performance status. He is receiving Haldol. He is going for MRI of the brain either at [facility] or some other center because of his weight. He is feeling somewhat better. He is in poor condition. REVIEW OF SYSTEMS CONSTITUTIONAL: No fever, no chills, no sweats, no weight loss. EYES: No visual symptoms. EARS, NOSE AND THROAT: There is no runny nose or sore throat or difficulty hearing. CARDIOVASCULAR: No chest pain. No shortness of breath. No palpitations. No orthopnea. No PND. RESPIRATORY: No cough. No wheezing. No hemoptysis. GASTROINTESTINAL: No nausea, vomiting, diarrhea, constipation, hematochezia or melena. GENITOURINARY: No urinary frequency, hesitancy or urgency. No blood in the urine. MUSCULOSKELETAL: No muscle or joint pain. NEUROLOGIC: No headache. No numbness or tingling. No weakness. No seizure. PSYCHIATRIC: No anxiety, depression or mood disturbance. ENDOCRINE: No excessive urination or thirst. DERMATOLOGIC: No rash or change in the skin. Unit #: [id number] #: [id number] Patient: LUDWIG RANDALL JR ALLERGIC/IMMUNOLOGIC: No symptoms. HEMATOLOGIC/LYMPHATIC: Denies any symptoms. ENT NURSE: Confusion. PAST MEDICAL HISTORY 1. Non-small cell lung cancer, started receiving chemo radiation, now he has Stage IV disease 2. MS, treatment on hold ALLERGIES CLINDAMYCIN SOCIAL HISTORY The patient had been smoking one pack per day for more than 30 years; he started at the age of 15. He is on disability. Denies alcohol use. PAST SURGICAL HISTORY 1. Tonsillectomy 2. Cholecystectomy 3. Lap banding, used to weigh 400 pounds, now he is about 235 FAMILY HISTORY Negative for cancer. CURRENT MEDICATIONS 1. Potassium 2. Zocor 3. Levsin 4. Vancomycin 5. Zosyn PHYSICAL EXAMINATION GENERAL: Patient is comfortable. ECOG is 0. The patient is pleasant. VITAL SIGNS: Afebrile, pulse 100, respirations 18, O2 saturation 99%, blood pressure 124/77. HEENT: Moist mucosa. Pupils equally reactive to light. Extraocular muscles intact. Sclerae anicteric. No obvious bleeding from nasal mucosa or oral mucosa. Scalp normal. Hearing normal. NECK: No JVD. No lymphadenopathy. LYMPHATIC/HEMATOLOGIC: There is no palpable adenopathy in the neck, axilla or inguinal area. CARDIOVASCULAR: S1, S2. Regular rate and rhythm. No S3 or S4. RESPIRATORY: Chest symmetrical, normal. Clear to auscultation bilaterally. No wheezes, no rales, no rhonchi. No dullness to percussion. ABDOMEN/GASTROINTESTINAL: Abdomen is soft, nontender, nondistended. No hepatosplenomegaly. EXTREMITIES: There is no clubbing, no cyanosis, no edema. No varicose veins. NEUROLOGICAL: Patient is alert, awake and oriented x3. Cranial nerves II-XII are intact. Sensory grossly intact. Motor is 4/5 in all four extremities. Gait is normal. Station is normal. Language is normal. Memory is normal. DTRs +2 in all four extremities. MUSCULOSKELETAL: No joint swelling. No bony tenderness. No muscle tenderness. SKIN: No petechiae, no rash, no ecchymosis. PSYCHIATRIC: No anxiety. No delusions or hallucinations. There is no agitation. Eye contact is normal. Affect is appropriate. There is no flight of ideas. Unit #: [id number] #: [id number] Patient: LUDWIG RANDALL JR DIAGNOSTIC STUDIES IMAGING: Chest x-ray: Right lower lobe effusion, infiltrate or less likely atelectasis. ASSESSMENT/PLAN This is a 51-year-old male with the followin. Uig-nizfl-ftxa lung cancer. It is squamous cell. He started with T4 N1 M0 disease, now he is a Stage IV, while receiving treatment. At first, he received chemo radiation HDR for hypoxia improved. However, he now has recurrent disease in acetabulum. Once his acute condition resolves, we will give an outpatient Opdivo. Because of the cost, Opdivo cannot be given in the hospital. 2. He has confusion and hallucination and was started on Haldane. Patient needs MRI. However, because of the weight, he will go somewhere outside. Primary care is managing this. 3. . Continue hydrocodone. 4. Pneumonia. He had a recent pneumonia. He is being treated by primary care. He is being given antibiotics. Dictated by... Cici Parra/south TD: 12/10/2016 17:52 JOB #: [id number] CC: Deep Murcia M.D. CONSULTATION REPORT Page 1 of 1 X Gonzalo Figueroa MD CONSULTATION REPORT
--- NOTE | ~2016-12-09 | HP ---
Unit #: [id number] #: [id number] Patient: LUDWIG RANDALL JR [id number] [facility] [address] [facility] [facility]. [place], [place] [address] [id number] MR#: [id number] NAME: LUDWIG RANDALL JR ROOM: Age: 51 Sex: M Admission Date: 12/09/2016 : 1965 Attending Physician: Dariusz Fox M.D. Primary Care Physician: Kevin Prince Aprn HISTORY AND PHYSICAL CHIEF COMPLAINT Hallucinating. HISTORY OF PRESENT ILLNESS The patient is a 51-year-old male with past medical history of nonsmall cell lung cancer, pelvic mass concerning for metastasis, obstructive sleep apnea, anemia, multiple sclerosis, morbid obesity who presented to the emergency department for evaluation of the above. Of note, the patient was hospitalized at [facility], November 24 through November 29, 2016 for pneumonia. He completed a course of antibiotics during that admission. He was found to have a pelvic mass that was biopsied. The pathology report is still pending. The patient states that he has had a four-day history of visual hallucinations. He currently tells me that there are ants crawling on the wall. He also had his make a different turn on the way to the hospital due to there being something obstructing the roadway that was not in fact there. He denies any fever. He has continued to have a productive cough. He reports intermittent chest wall pain. He has had decreased appetite. He reports one bout of vomiting within the past 24 hours. He denies any diarrhea or constipation. In the emergency department, a chest x-ray was done and showed persistent infiltrate involving the right lower lobe. He was given vancomycin, Zosyn, and tobramycin in the emergency department. Also of note, a CT of the head was done and showed nothing acute. He is being admitted to [facility] for evaluation and further treatment. PAST MEDICAL HISTORY 1. Hospitalized at [facility], November 24 through November 29, 2016 for pneumonia. He completed antibiotics during the hospitalization, per the discharge summary. He also was found to have a right pelvis mass that was biopsied. The pathology report is still pending. 2. Nonsmall cell lung cancer followed by Dr. Figueroa, currently receiving chemotherapy and radiation. The last chemotherapy was two weeks ago. The last radiation treatment was yesterday. 3. Chronic respiratory failure on 2 L of oxygen per nasal cannula. The patient has seen Dr. Alise eD Paz in the past. 4. Obstructive sleep apnea. 5. Chronic anemia. 6. MS. PAST SURGICAL HISTORY Unit #: [id number] #: [id number] Patient: LUDWIG RANDALL JR 1. Cholecystectomy. 2. Tonsillectomy. 3. Lap Brand. 4. Wound debridement, left leg. 5. Left knee surgery, 6. Hernia repair. 7. Cardiac catheterization. SOCIAL HISTORY The patient lives with his . He quit smoking in August. He reportedly started smoking around the age of 19. There is no alcohol use. He is currently immobile. CODE STATUS His code status is a full code. FAMILY HISTORY Notable for there being no history of malignancy. ALLERGIES Clindamycin. HOME MEDICATIONS 1. Percocet 10/325 q.6 hours p.r.n. 2. Flexeril 10 mg twice daily p.r.n. 3. MiraLax 17 g daily. 4. Colace 100 mg daily. 5. Protonix 40 mg daily. 6. Potassium 20 mEq daily. 7. Magnesium 400 mg twice daily. 8. Levaquin 750 mg daily. REVIEW OF SYSTEMS A complete review of systems is negative except as indicated in HPI. DIAGNOSTIC STUDIES LABORATORY: Troponin is less than 0.05. Urinalysis notable for trace protein. Urine tox screen is positive for opiates and tricyclics. Arterial blood gas shows pH of 7.477, pCO2 of 36.4, pO2 of 81.2 on 2 L. Comprehensive metabolic panel notable for sodium of 132, chloride 99, calcium 11. Alkaline phosphatase 136, total protein 8.6, albumin 3. Tylenol, salicylate, and alcohol levels are negative. Lactic acid is 1.2. Complete blood count notable for hemoglobin and hematocrit of 10.7 and 32 respectively. IMAGING: Chest x-ray shows persistent right lower lobe effusion and infiltrate. CT of the head shows no intracranial abnormality. CARDIOVASCULAR: EKG shows sinus tachycardia with a rate of 124 beats per minute. PHYSICAL EXAMINATION VITAL SIGNS: Temperature is 98.9, pulse 143, respirations 23, blood pressure 144/118, oxygen saturation 97% on room air. GENERAL: The patient is a male who is awake and alert in no acute distress. Unit #: [id number] #: [id number] Patient: LUDWIG RANDALL JR HEENT: The head is atraumatic. Mucous membranes are moist. NECK: Supple. Trachea is midline. CARDIOVASCULAR: Regular rate and rhythm. LUNGS: Clear to auscultation bilaterally. He does have a few scattered rhonchi. Breathing is not labored with conversation. ABDOMEN: Soft, nontender with bowel sounds present in all four quadrants. EXTREMITIES: Nontender with no pedal edema. NEUROLOGIC: The patient is awake and alert. He is oriented x3. He follows commands. PSYCHIATRIC: The patient is actively visually hallucinating. He is cooperative. SKIN: Skin of examined areas is warm and dry. ASSESSMENT The patient is a 51-year-old male with: 1. Altered mental status, specifically visual hallucinations concerning for possible brain metastases. The patient is not able to fit in the MRI here at [facility]. He will need open MRI. 2. Healthcare-associated pneumonia: The patient received vancomycin, Zosyn, and tobramycin in the emergency department. 3. Chronic respiratory failure on 2 L of oxygen per nasal cannula. The patient sees Dr. Alise De Paz. 4. Nonsmall cell lung cancer, followed by Dr. Figueroa: Currently receiving chemotherapy and radiation with last chemotherapy two weeks ago, last radiation yesterday. 5. Right pelvic mass concerning for malignancy: Pathology report is pending. 6. Obstructive sleep apnea. 7. Chronic anemia: The patient's hemoglobin was 8.9 on November 29, 2016. It is 10.7 today. 8. Multiple sclerosis. 9. Morbid obesity with body mass index 43. 10. Former smoker. PLAN 1. Admit to intermediate level. 2. TSH, B12, and folate. 3. Neuro checks. 4. MRI of the brain with and without contrast for further evaluation of hallucinations and possible metastatic disease. 5. manager instrumentation and social work consult to arrange for open MRI. 6. Consult Dr. Figueroa regarding lung cancer. 7. Blood cultures x2. 8. Sputum culture and sensitivity. 9. Procalcitonin level. 10. Streptococcal and legionella urine antigens. 11. DuoNeb q.4 hours. 12. Supplemental oxygen. 13. Vancomycin IV, tobramycin IV, Zosyn IV for healthcare-associated pneumonia pending further workup. 14. Consult Dr. Ochoa, the patient's inspector assemblies and installations, regarding healthcare-associated pneumonia and chronic respiratory failure. 15. Serial cardiac enzymes. 16. Repeat labs in the morning. 17. Sequential compression devices for deep venous thrombosis prophylaxis. 18. Additional workup and consultants based on above. 19. Regarding code status, the patient is a full code. Unit #: [id number] #: [id number] Patient: PRAKASH MOJICALUDWIG Radha Dictated by Cici Espinoza/sharlene TD: 12/09/2016 12:51 JOB #: [id number] HISTORY AND PHYSICAL Page 1 of 1 X Shelley Mai MD X HISTORY AND PHYSICAL
--- NOTE | ~2016-12-09 | BMI ---
[facility] Nutrition Therapy DATE: 12/11/16 Patient: LUDWIG RANDALL Physician: NATALIE Address: [address] [place] [address] Room/Bed: [address] [place] [address], Zip: [place] [address] Admit Date: 12/09/16 Date of : [birth year] Height: 5 7 Weight: 264 119.8 HIGH BMI NOTE: DX: 51 y/o male admitted with visual hallucinations ANTHROPOMETRICS: Ht: 67", Wt: 264 lbs, BMI: 46 DIET: Healthy heart 2 points malnutrition risk screen not appropriate for RD assessment INTERVENTION: Restricted diet, meds/fluids per MD RECOMMENDATIONS: Continue current diet to promote a gradual weight loss towards a healthy BMI range. Respectfully, Cinthya Mann RD, LD [facility] and [facility] cc: client file
--- NOTE | ~2016-12-09 | CR72 ---
[facility] A Service of [facility] RADIOLOGY TEXT RESULTS PATIENT: LUDWIG RANDALL JR LOCATION: [facility] 340-01 : [birth year] UNIT #: [id number] AGE: [address]: Rajeev Garcia MD SEX: M ORDER DR: [id number] [facility] [address] [facility]. [place], [place] [address] [id number] E MR#: [id number] Acc #: [id number] NAME: LUDWIG RANDALL JR : 1965 SEX: M STUDY DATE/TIME: 12/09/2016 7:38 UNIT: [facility] ROOM: STUDY DESCRIPTION: CR Chest Single View Portable Attending Physician: Dariusz Fox M.D. Ordering Physician: Dariusz Fox M.D. Primary Care Physician: Kevin Prince Aprn MEDICAL IMAGING REPORT This report is preliminary unless electronic signature is present EXAM Portable chest 1 view 12/09/2016 COMPARISON 11/28/2016. CLINICAL HISTORY Short of air for 4 days. FINDINGS Persistent right lower lobe effusion and infiltrate or less likely atelectasis, no substantial change since 11/28/2016. Mild cardiomegaly is redemonstrated and the left lung remains well aerated. Dictated by... Moe Alfred M.D. THIS IS AN ELECTRONICALLY VERIFIED REPORT Moe Alfred M.D. at 12/15/2016 10:34 AM ALIREZA/jessee TD: 12/09/2016 08:17 JOB #: [id number] MEDICAL IMAGING REPORT Page 1 of 1 COPY
[~2016-12-09 06:32] MED LIST changes: +K-DUR20 ME1 PO; +MAG-OX 400400 M1 PO
[2016-12-09 08:26] LABS: URINE SOURCE CLEAN CATCH
[2016-12-09 08:31] LABS: URINE APPEARANCE CLEAR; URINE BILIRUBIN NEG (NEG); URINE BLOOD NEG (NEG); URINE COLOR YELLOW; URINE GLUCOSE NEG (NEG); URINE KETONE TRACE (NEG); URINE LEUKOCYTE ESTERASE NEG (NEG); URINE NITRATE NEG (NEG); URINE PROTEIN TRACE (NEG); URINE SPECIFIC GRAVITY 1.021 (1.003-1.035)
[2016-12-09 08:41] LABS: POC - TROPONIN <0.05 ng/mL (<=0.05)
[2016-12-09 08:43] LABS: CULTURE INDICATED? NO
[2016-12-09 08:44] LABS: AMPHETAMINE NEG (NEG); BARBITURATES NEG (NEG); BENZODIAZEPINES NEG (NEG); COCAINE NEG (NEG); MARIJUANA NEG (NEG); OPIATES POS (NEG); TRICYCLIC ANTIDEPRESSANTS POS (NEG); U METHADONE NEG (NEG)
[2016-12-09 08:59] LABS: ALKALINE PHOSPHATASE 136 U/L (32-92); ALT (SGPT) 13 U/L (10-40); AST (SGOT) 20 U/L (10-42); BILIRUBIN, DIRECT 0.2 mg/dL (0.0-0.2); BILIRUBIN,INDIRECT 0.7 mg/dL (0.0-0.9); BILIRUBIN,TOTAL 0.9 mg/dL (0.2-2.0); BLOOD UREA NITROGEN 14 mg/dL (9-23); CARBON DIOXIDE 25 mmol/L (22-31); CHLORIDE 99 mmol/L (100-111); CREATININE SERUM 0.5 mg/dL (0.6-1.4); GLOM FILT RATE Estimated 126.4 mL/min (>60); GLUCOSE FASTING 107 mg/dL (70-110); PROTEIN TOTAL SERUM 8.6 g/dL (6.0-8.3); SALICYLATE <4.0 mg/dL; SODIUM 132 mmol/L (135-145)
[2016-12-09 09:02] LABS: ARTERIAL BLD GAS O2 SATURATION 95.9 % (90.0-100.0); ARTERIAL BLOOD GAS CARBOXY HB 1.1 %sat (0.0-9.0); ARTERIAL BLOOD GAS HCO3 26.9 mmol/L; ARTERIAL BLOOD GAS MET HB 0.4 %sat (0.0-2.0); ARTERIAL BLOOD GAS PCO2 36.4 mmHg (35.0-45.0); ARTERIAL BLOOD GAS PO2 81.2 mmHg (80.0-100); ARTERIAL BLOOD GAS pH 7.477 (7.350-7.450)
[2016-12-09 09:04] LABS: ARTERIAL BLOOD GAS ALLEN TEST NORMAL; ARTERIAL BLOOD GAS ART SITE LEFT RADIAL; ARTERIAL BLOOD GAS DELIVERY NASAL CANNULA; ARTERIAL DRAW? YES
[2016-12-09 09:08] LABS: ACETAMINOPHEN <10 ug/mL; ALCOHOL BLOOD <5 mg/dL (0)
[2016-12-09 10:14] LABS: BASOPHIL% 0.5 % (0-2.5); EOSINOPHIL% 0.5 % (0.0-7.0); HEMOGLOBIN 10.7 gm/dL (13.0-16.0); LYMPHOCYTE# 0.4 X10e3 (1.0-3.5); LYMPHOCYTE% 4.9 % (17.0-45.0); MEAN CELL VOLUME 91.4 FL (83-96); MEAN CORPUSCULAR HEMOGLOBIN 30.5 PG (28-34); MEAN CORPUSCULAR HGB CONC 33.4 g/dL (30-36); MEAN PLATELET VOLUME 7.4 FL (6.5-11.5); MONOCYTE# 0.9 X10e3 (0-1.0); MONOCYTE% 11.5 % (3.0-12.0); NEUTROPHIL# 6.8 X10e3 (1.5-7.1); NEUTROPHIL% 82.6 % (40-75); PLATELET COUNT 347 X10e3 (140-420); RED CELL DISTRIBUTION WIDTH 19.5 % (11.0-15.5); WHITE BLOOD COUNT 8.2 X10e3 (4.0-10.5)
[2016-12-09 10:15] LABS: DIFF IND NO
[2016-12-09 15:18] LABS: FOLATE (FOLIC ACID) 8.7 ng/mL (>5.8)
[2016-12-09 16:26] LABS: %MB 2.8 % (0.0-4.0); MB 1.7 ng/ml
[2016-12-09 21:57] LABS: %MB 2.7 % (0.0-4.0); MB 1.6 ng/ml
[2016-12-10 06:46] LABS: HEMATOCRIT 28.2 % (38.0-50.0); HEMOGLOBIN 9.3 gm/dL (13.0-16.0); MEAN CELL VOLUME 91.4 FL (83-96); MEAN CORPUSCULAR HEMOGLOBIN 30.2 PG (28-34); MEAN CORPUSCULAR HGB CONC 33.1 g/dL (30-36); MEAN PLATELET VOLUME 6.8 FL (6.5-11.5); RED BLOOD COUNT 3.09 X10e (3.90-5.60); RED CELL DISTRIBUTION WIDTH 18.9 % (11.0-15.5); WHITE BLOOD COUNT 7.6 X10e3 (4.0-10.5)
[2016-12-10 07:10] LABS: ALBUMIN SERUM 2.9 g/dL (3.5-5.0); BILIRUBIN,TOTAL 0.7 mg/dL (0.2-2.0); BUN/CREATININE RATIO 18.33; CALCIUM SERUM 10.8 mg/dL (8.4-10.2); CREATININE SERUM 0.6 mg/dL (0.6-1.4); GLOM FILT RATE Estimated 117.3 mL/min (>60); POTASSIUM 3.4 mmol/L (3.5-5.1); PROTEIN TOTAL SERUM 8.2 g/dL (6.0-8.3)
[2016-12-11 05:34] LABS: HEMOGLOBIN 9.2 gm/dL (13.0-16.0); MEAN CELL VOLUME 91.5 FL (83-96); MEAN CORPUSCULAR HEMOGLOBIN 30.2 PG (28-34); MEAN PLATELET VOLUME 6.8 FL (6.5-11.5); RED BLOOD COUNT 3.06 X10e (3.90-5.60); RED CELL DISTRIBUTION WIDTH 18.9 % (11.0-15.5)
[2016-12-11 07:13] LABS: ALBUMIN SERUM 2.6 g/dL (3.5-5.0); BUN/CREATININE RATIO 11.66; CREATININE SERUM 0.6 mg/dL (0.6-1.4); GLOM FILT RATE Estimated 117.3 mL/min (>60); PHOSPHOROUS 2.6 mg/dL (2.5-4.6); PROTEIN TOTAL SERUM 7.2 g/dL (6.0-8.3)
[2016-12-12 06:23] LABS: HEMATOCRIT 26.7 % (38.0-50.0); HEMOGLOBIN 8.9 gm/dL (13.0-16.0); MEAN CELL VOLUME 91.4 FL (83-96); MEAN CORPUSCULAR HEMOGLOBIN 30.4 PG (28-34); MEAN CORPUSCULAR HGB CONC 33.3 g/dL (30-36); MEAN PLATELET VOLUME 6.4 FL (6.5-11.5); RED BLOOD COUNT 2.92 X10e (3.90-5.60); RED CELL DISTRIBUTION WIDTH 18.8 % (11.0-15.5); WHITE BLOOD COUNT 6.7 X10e3 (4.0-10.5)
[2016-12-12 07:01] LABS: BUN/CREATININE RATIO 7.14; CALCIUM SERUM 9.3 mg/dL (8.4-10.2); CREATININE SERUM 0.7 mg/dL (0.6-1.4); GLOM FILT RATE Estimated 110.1 mL/min (>60); POTASSIUM 4.6 mmol/L (3.5-5.1)
[2016-12-13] MEDS ORDERED: LOPRESSOR PO (12:54)
[2016-12-13] MEDS ORDERED: FERROUS GLUCON324 M2 PO (12:55)
[2016-12-14] MEDS ORDERED: DILAUDID8 MG PO (12:46)
[2016-12-14] MEDS ORDERED: DAZIDOX10 MG PO (12:51)
== END 2016-12-14 13:46 | disposition home health service (06) | DRG 917 ==
LOC: CED 06:32 → C3A PCU 11:31 → CEDOF 11:31 → CED 11:48 → C3A PCU 14:14 → CEDOF 14:14 → C3A PCU 12-10 09:05
PROVIDERS: Emergency Medicine; Family Medicine; Internal Medicine; Internal Medicine Hematology
DX: T40.2X5A Adverse effect of other opioids, initial encounter (principal); G93.41 Metabolic encephalopathy; J96.11 Chronic respiratory failure with hypoxia; C79.89 Secondary malignant neoplasm of other specified sites; Z68.41 Body mass index [BMI] 40.0-44.9, adult; C34.90 Malignant neoplasm of unspecified part of unspecified bronchus or lung; E83.52 Hypercalcemia; E87.1 Hypo-osmolality and hyponatremia; F11.951 Opioid use, unspecified with opioid-induced psychotic disorder with hallucinations; G47.33 Obstructive sleep apnea (adult) (pediatric); E66.01 Morbid (severe) obesity due to excess calories; G35 Multiple sclerosis; D64.9 Anemia, unspecified; Z98.84 Bariatric surgery status; Z87.891 Personal history of nicotine dependence
CPT/HCPCS: 36415; 36600; 70450; 71010; 80048; 80053; 80076; 80200; 80202; 80307; 81003; 82308; 82550; 82553; 82607; 82728; 82746; 82803; 83540; 83550; 83605; 83735; 83880; 84100; 84443; 84484; 85025; 85027; 86060; 87040; 87449; 87899; 92610; 93005; 94640; 94760; 96361; 96365; 96366; 96367; 97162; 97166; 97535; 99285; G0480; G8978-GP; G8979-GP; G8987-GO; G8988-GO; G8996-GN; G8997-GN; G8998-GN; J1170; J2270; J2543; J3260; J3370; J3475; J3489